=== PATIENT | female | born 1950 | race Caucasian/White ===

== ENCOUNTER 2020-09-05 09:19 | Outpatient (REF) | payer MEDICARE, SELFPAY ==
[2020-09-05 11:21] LABS: MANUAL DIFF FLAG NO
[2020-09-05 11:47] LABS: Basophils Percent Auto 0.8 % (0-2); Eosinophils Absolute Auto 0.3 X10*3/uL (0.0-0.4); Eosinophils Percent Auto 5.7 % (0-4); Hematocrit 39.5 % (37-47); Imm Gran Abs Auto 0.01 X10*3/uL (0.00-0.03); Imm Gran Pct Auto 0.2 % (0.0-0.4); Lymphocytes Absolute Auto 1.6 X10*3/uL (1.2-4.9); Lymphocytes Percent Auto 30.7 % (20-40); Mean Corpuscular HGB Conc 32.9 g/dl (31.0-35.0); Mean Corpuscular Hemoglobin 32.5 pg (27.0-33.0); Mean Corpuscular Volume 98.8 fL (80-98); Mean Platelet Volume 10.5 fL (9.4-12.3); Monocytes Absolute Auto 0.5 X10*3/uL (0.1-1.2); Monocytes Percent Auto 10.6 % (2-11); Neutrophils Absolute Auto 2.7 X10*3/uL (2.0-8.3); Platelet Count 268 X10*3/uL (160-400); Red Cell Distribution Width 12.4 % (11.0-16.0); White Blood Count 5.1 X10*3/uL (4.8-10.8)
[2020-09-05 11:55] LABS: Anion Gap 14 (12-20); Blood Urea Nitrogen 10 mg/dL (9-16); Calcium 9.2 mg/dL (8.4-10.2); Carbon Dioxide 27 mmol/L (22-29); Chloride 98 mmol/L (96-108); Cholesterol 195 mg/dL; Estimated Glomerular Filt Rate > 60; Glucose Fasting 106 mg/dL (60-99); HDL Cholesterol 61 mg/dL; LDL Cholesterol Calculated 115 mg/dl; Potassium 4.3 mmol/l (3.3-5.1); Sodium 135 mmol/L (135-145); Triglycerides 95 mg/dL
[2020-09-05 12:26] LABS: Reflex LDLD? No
== END 2020-09-05 09:20 | disposition home or self-care (01) ==
LOC: HO.HMGCLDS 09:19
PROVIDERS: PCP Internal Medicine; Visit Provider Nurse Practitioner Family
DX: F32.9 Major depressive disorder, single episode, unspecified (principal)
CPT/HCPCS: 36415; 80048; 80061; 85025

== ENCOUNTER 2020-11-03 13:37 | Outpatient (REF) | payer MEDICARE, SELFPAY ==
--- NOTE | ~2020-11-03 | MM_ITS ---
EXAMINATION: MM SCREENING DIGITAL BREAST TOMOSYNTHESIS, BILATERAL CLINICAL INFORMATION: Screening. Asymptomatic. The lifetime risk of breast cancer based on the Tyrer-Cuzick Model is 6%. COMPARISON: Mammography: 10/31/2019, 05/02/2019, 10/27/2018, 04/25/2018, 10/24/2017, 10/19/2017 TECHNIQUE: Digital breast tomosynthesis is performed in both the craniocaudal and mediolateral oblique views along with computer-aided detection (CAD). Synthesized 2D images are generated from the tomosynthesis. FINDINGS: The breasts are heterogeneously dense, which may obscure small masses (ACR BI-RADS breast composition Category c). Breast tissue composition borders on extremely dense in the upper outer quadrants. There is fine fibronodular parenchymal pattern similar to prior exams. Parenchymal pattern is similar to prior studies. There is no developing density or interval mass or architectural abnormality. Scattered bilateral round and coarse calcifications are again noted. No significant changes from prior studies. MM/MM tomosynthesis screening BI IMPRESSION: No mammographic evidence of malignancy. ASSESSMENT: BI-RADS 2: Benign RECOMMENDATION: Routine annual mammography screening. This patient's information was entered into a reminder system with a target due date for their next mammogram.
== END 2020-11-03 13:38 | disposition home or self-care (01) ==
LOC: HO.MAMMO 13:37
PROVIDERS: Visit Provider Internal Medicine
DX: Z12.31 Encounter for screening mammogram for malignant neoplasm of breast (principal)
CPT/HCPCS: 77063; 77067

== ENCOUNTER 2021-09-17 10:37 | Outpatient (REF) | payer MEDICARE, SELFPAY ==
[2021-09-17 14:08] LABS: Hematocrit 37.5 % (37.0-47.0); Hemoglobin 12.3 g/dl (12.0-16.0); Mean Corpuscular HGB Conc 32.8 g/dl (31.0-35.0); Mean Corpuscular Hemoglobin 32.5 pg (27.0-33.0); Mean Corpuscular Volume 99.2 fL (80.0-98.0); Mean Platelet Volume 10.7 fL (9.4-12.3); Platelet Count 196 X10*3/uL (160-400); Red Blood Count 3.78 X10*6/uL (4.20-5.50); Red Cell Distribution Width 12.5 % (11.0-16.0); White Blood Count 4.9 X10*3/uL (4.8-10.8)
[2021-09-17 14:11] LABS: Appearance Urine CLEAR; Color Urine YELLOW; Glucose Urine UA NEG (NEG); Leukocyte Esterase Urine NEG (NEG); Nitrite Urine NEG (NEG); PH 6.5 (5.0-8.0); Specific Gravity - Urine >= 1.030 (1.005-1.025); Urine Blood NEG (NEG); Urine Ketones NEG (NEG); Urine Protein NEG (NEG-TRACE)
[2021-09-17 14:21] LABS: Alanine Aminotransferase 15 U/L (0-31); Albumin Level 4.2 g/dL (3.5-5.0); Alkaline Phosphatase 67 U/L (39-117); Anion Gap 11 (12-20); Aspartate Amino Transferase 21 U/L (5-31); Bilirubin Direct 0.3 mg/dL (0.0-0.5); Bilirubin Total 0.8 mg/dL (0.0-1.0); Blood Urea Nitrogen 14 mg/dL (9-16); Calcium 9.5 mg/dL (8.4-10.2); Carbon Dioxide 31 mmol/L (22-29); Chloride 103 mmol/L (96-108); Cholesterol 184 mg/dL; Estimated Glomerular Filt Rate > 60; Glucose Random 93 mg/dL (60-115); HDL Cholesterol 56 mg/dL; LDL Cholesterol Calculated 112 mg/dl; Potassium 3.5 mmol/L (3.3-5.1); Sodium 141 mmol/L (135-145); Triglycerides 81 mg/dL
[2021-09-17 14:43] LABS: Thyroid Stimulating Hormone 1.04 uIU/mL (0.32-4.0)
== END 2021-09-17 10:38 | disposition home or self-care (01) ==
LOC: HO.HMGCLDS 10:37
PROVIDERS: Visit Provider Internal Medicine
DX: F41.1 Generalized anxiety disorder (principal)
CPT/HCPCS: 36415; 80048; 80061; 80076; 81003; 84443; 85027

== ENCOUNTER 2021-09-21 13:03 | Emergency (ER) | payer MEDICARE, SELFPAY ==
--- NOTE | ~2021-09-21 | XR_ITS ---
EXAMINATION: XR HUMERUS, RIGHT CLINICAL INFORMATION: Pain after a fall COMPARISON: None TECHNIQUE: AP and lateral views of the right humerus. FINDINGS: The bones and soft tissues are normal. No fracture. Imaged portions of the shoulder and elbow are unremarkable. XR/XR humerus RT IMPRESSION: Normal right humerus.
--- NOTE | ~2021-09-21 | CT_ITS ---
EXAM: Noncontrast CT scan of the head and cervical spine. INDICATION: Fall on ice with head and neck injury. COMPARISON: CT sinus 06/09/2010 TECHNIQUE: Axial slices were obtained from skull base to vertex and displayed. This was followed by helical, multislice, multidetector axial images from the occiput to the upper thorax. Coronal and sagittal reformats of the cervical spine in addition to coronal reformats of the head were obtained at the technologist workstation. DLP: 1005 mGy-cm FINDINGS: HEAD: There is no evidence of acute intracranial hemorrhage or territorial infarction. No abnormal mass effect or midline shift is appreciated. Ellington-white differentiation is well preserved. No extra-axial fluid collections. The ventricular system and cortical sulci are prominent, consistent with age-appropriate volume loss. There are areas of low density in the periventricular and subcortical white matter, most consistent with sequelae of microvascular ischemic change. Hypodensity within the left avila radiata likely represents an old lacunar infarct. Hyperostosis frontalis. No acute fracture. Mild polypoid mucosal disease of the maxillary sinuses. Other visualized paranasal sinuses and mastoid air cells are well aerated. SPINE: There is straightening of the normal cervical lordosis. Also noted is mild retrolisthesis of C3 on C4. C1/C2 articulation is unremarkable. Vertebral body heights are maintained. Mildly decreased C3/C4 and C6/C7 disc space height. Small osteophytes are noted throughout the cervical spine. Mildly prominent posterior disc osteophyte complexes are present at C3/C4, C4/C5 and C6/C7. Mild to moderate facet hypertrophy diffusely. Visualized lung apices are well aerated. CT/CT cervical spine wo con IMPRESSION: 1. No acute intracranial pathology. 2. No fractures or dislocations of the cervical spine. This CT examination was performed using dose optimization techniques as appropriate, variously including the following: *Automated exposure control *Adjustment of mA and/or kV according to patient size (this includes techniques or standardized protocols for targeted exams where dose is matched to indication/reason for exam; i.e. extremities or head) *Use of iterative reconstruction technique
[2021-09-21 13:08] VITALS: BP 143/66; PULSE 61; RESP 16; TEMP 36.6; O2SAT 97; BMI 28.4
--- NOTE | 2021-09-21 13:44 | ED_ITS ---
HPI - Fall General Chief Complaint: Fall Stated Complaint: fall - head Lac Time Seen by Provider: 09/21/21 13:44 Source: patient Mode of arrival: ambulatory Limitations: no limitations History of Present Illness HPI Narrative: Patient is a 71 year old female presenting to the emergency department today with a right eyebrow laceration and right shoulder pain after a fall. Patient states that she slipped on the ice and hit the right side of her head and right shoulder on the ground. Patient denies any loss of consciousness with the incident. Patient states she is not on any anti-coagulation medications. Patient denies any dizziness, lightheadedness, abdominal pain, nausea, vomiting, fever, chills, blurry vision, double vision, loss of vision, chest pain, difficulty breathing, shortness of breath, back pain, night sweats, pain with urination, increased urinary frequency, increased urinary urgency, blood in his urine or stool, syncope or a near syncopal episode, bowel incontinence, bladder inc ontinence, bowel retention, bladder retention, or any other complaints at this time. MD complaint: fall Onset (ago): minute(s) Fall from: standing Fall witnessed: no Place fall occurred: home Loss of consciousness: none Prolonged down time: no Symptoms prior to fall: none Context: tripped/slipped Location of injury: face Severity: mild Related Data Previous Rx's Medication Instructions Recorded hydrochlorothiazide 25 mg tablet 25 mg PO QAM #90 cap 03/23/21 metoprolol tartrate 50 mg tablet 50 mg PO BID #180 tab 06/19/21 rosuvastatin 10 mg tablet 10 mg PO BEDTIME #90 tab 07/22/21 sertraline 100 mg tablet 150 mg PO DAILY #135 tab 07/22/21 omeprazole 20 mg capsule,delayed 20 mg PO DAILY #90 cap 08/28/21 release Allergies Allergy/AdvReac Type Severity Reaction Status Date / Time lisinopril [LISINOPRIL] Allergy Severe TONGUE Verified 03/23/21 15:14 NUMBNESS, ITCHY, Numb tongue, cough, oral numbness codeine [Codeine] Allergy Unknown SWELLING, Verified 03/23/21 15:14 unknown flurazepam [From [place]] Allergy Unknown SWELLING Verified 03/23/21 15:14 tetracycline [Tetracycline] Allergy Unknown SWELLING, Verified 03/23/21 15:14 facial edema, facial swelling, neck swelling CAT GUT SUTURES' Allergy Unknown UNKNOWN Uncoded 03/23/21 15:14 Review of Systems Constitutional: Constitutional: Reports no additional constitutional complaints, Denies chills, Denies fever(s) and Denies night sweats Eyes: Eyes: Reports no additional eye complaints, Denies blurry vision, Denies change in vision, Denies diplopia, Denies eye discharge, Denies loss of vision and Denies eye pain ENT: Denies dizziness Cardiovascular: Cardiovascular: Reports no additional cardiovascular complaints, Denies chest pain, Denies lightheadedness, Denies Loss of Consciousness and Denies dyspnea Respiratory: Respiratory: Reports no additional respiratory complaints and Denies dyspnea Gastrointestinal: Gastrointestinal: Reports no additional gastrointestinal complaints, Denies abdominal pain, Denies melena, Denies hematochezia, Denies change in bowel habits and Denies change in stool character Genitourinary: Genitourinary: Denies hematuria, Denies urinary frequency, Denies dysuria, Denies urinary incontinence, Denies urinary hesitancy and Denies urinary urgency Musculoskeletal: Musculoskeletal: Reports no additional musculoskeletal complaints, Denies numbness and Denies tingling Comments: right shoulder pain Integumentary/Breasts: Comments: right eyebrow laceration Neurologic: Denies dizziness, Denies loss of vision, Denies numbness and Denies tingling Psychiatric: Psychiatric: Reports no additional psychiatric complaints Endocrine: Endocrine: Reports no additional endocrine complaints Hematologic/Lymphatic: Hematologic/Lymphatic: Reports no additional hematologic/lymphatic complaints Allergic/Immunologic: Allergic/Immunologic: Reports no additional allergic/immunologic complaints [facility] Past Medical History Attestation statement: The following information was validated with the patient. Source: old records reviewed Medical History Generalized anxiety disorder Surgical History History of appendectomy History of removal of ovarian cyst History of right knee surgery Family History Family History Father No problems noted. Mother No problems noted. Brother No problems noted. Brother No problems noted. Other Mental health disorder Substance use disorder Social History Social History Housing: House Alcohol intake: current Alcohol intake frequency: 0-2 drinks per day Alcohol type: wine Patient Tobacco Use Status: Never used Tobacco Advance Directives: No Advance Directives Information Provided: No service: No Current occupational status: retired Physical Exam Vital Signs: Vital Signs: Last Vital Signs Temp 98 F 09/21/21 13:08 Pulse 61 09/21/21 13:08 Resp 16 09/21/21 13:08 BP 143/66 H 09/21/21 13:08 Pulse Ox 97 09/21/21 13:08 BMI result Body Mass Index 28.4 Const: General: cooperative, no acute distress, alert and awake Nutritional Appearance: well nourished Orientation/consciousness: patient oriented x3 Limitations: no limitations HENMT: Head: Yes normal to inspection and Yes atraumatic Ears: hearing grossly normal bilaterally and external ears normal General nose exam: Normal external nose present, no nasal discharge noted and no epistaxis Face and sinus: Yes normal facial exam, No abrasion and No laceration Mouth: Normal oral and palatal mucosa present, no drooling and no muffled voice Eyes: General: appearance normal, both eyes and all related structures Periorbital: periorbital findings normal Eyelids: Yes eyelids normal Conjunctivae: conjunctivae normal Pupils: Equal, round and reactive pupils present EOM: EOMs intact bilaterally Neck: Neck: Yes normal visual inspection, Yes full ROM and Yes no lymphadenopathy Chest: Chest palpation & inspection: normal inspection of the chest Resp: Effort & Inspection: normal respiratory effort and able to speak in complete sentences Auscultation: clear to auscultation bilaterally Cardio: Rate: regular rate Rhythm: regular rhythm GI: Inspection: Yes normal to inspection Skin: Other: 1cm laceration to the right eyebrow, no active bleeding Neuro: General: patient oriented x3 and moves all extremities Cranial n erves: Yes Equal, round and reactive pupils present Cognition (Neuro): normal cognition Motor exam (neuro): 5/5 motor strength present throughout Sensory Exam: Normal double simultaneous stimulation for sensation Coordination: [id number] test normal Extrem: General: Yes normal to inspection, Yes full ROM and Yes capillary refill normal Psych: Appearance: grossly normal Mental Status: mental status grossly normal Affect: normal affect Attitude: cooperative Thought process: Normal thought process present Thought content: Normal thought content present Insight: Good insight present (Psych) Procedures Laceration Laceration 1: Site: face (eyebrow) Side (If applicable): right Size (cm): 1 Description: linear Depth: simple, single layer Local Anesthetic: other anesthetic (LMX) Pre-repair: irrigated extensively Skin layer closed with: other (prolene) Size (cm): 6-0 Number of sutures: 2 Technique: simple, interrupted MDM - Fall MDM Narrative Medical decision making narrative: Patient is a 71 year old female presenting to the emergency department today with a right eyebrow laceration and right shoulder pain. Patient's physical exam showed a laceration to her right eyebrow, approximately 1cm long with no active bleeding. Patient's right humerus x-ray, head CT and CT of the C-Spine showed no acute process. I explained my physical exam findings as well as all test results to the patient. I answered all questions asked by the patient. Patient was brought up to date on her tetanus shot. Patient's laceration was repaired, per procedure note, without incident. I stressed the importance of the patient taking her medication as prescribed. I stressed the importance of the patient following up with her primary care provider. I stressed the importance of the patient returning to the emergency department immediately if her symptoms were to worsen or if she were to develop any dizziness, shortness of breath, difficulty breathing, chest pain, blurry vision, loss of vision, nausea, vomiting, abdominal pain, fever, chills, back pain, or any other complaints. Patient verbalized agreement and understanding with this treatment plan and discharge. Differential Diagnosis Differential diagnosis: Likely fracture (laceration, abrasion) Imaging Data Head and C-Spine CT: Attestation: I personally reviewed and interpreted this imaging study as follows: Radiologist's impression: EXAM: Noncontrast CT scan of the head and cervical spine. INDICATION: Fall on ice with head and neck injury. COMPARISON: CT sinus 06/09/2010 TECHNIQUE: Axial slices were obtained from skull base to vertex and displayed. This was followed by helical, multislice, multidetector axial images from the occiput to the upper thorax. Coronal and sagittal reformats of the cervical spine in addition to coronal reformats of the head were obtained at the technologist workstation. DLP: 1005 mGy-cm FINDINGS: HEAD: There is no evidence of acute intracranial hemorrhage or territorial infarction.? No abnormal mass effect or midline shift is appreciated. Ellington-white differentiation is well preserved.? No extra-axial fluid collections. The ventricular system and cortical sulci are prominent, consistent with age-appropriate volume loss.? There are areas of low density in the periventricular and subcortical white matter, most consistent with sequelae of microvascular ischemic change. Hypodensity within the left avila radiata likely represents an old lacunar infarct. Hyperostosis frontalis. No acute fracture. Mild polypoid mucosal disease of the maxillary sinuses. Other visualized paranasal sinuses and mastoid air cells are well aerated. SPINE: There is straightening of the normal cervical lordosis. Also noted is mild retrolisthesis of C3 on C4. C1/C2 articulation is unremarkable. Vertebral body heights are maintained. Mildly decreased C3/C4 and C6/C7 disc space height. Small osteophytes are noted throughout the cervical spine. Mildly prominent posterior disc osteophyte complexes are present at C3/C4, C4/C5 and C6/C7. Mild to moderate facet hypertrophy diffusely. Visualized lung apices are well aerated. CT/CT head/brain wo con IMPRESSION: 1. No acute intracranial pathology. 2. No fractures or dislocations of the cervical spine. Dictated By: ADDIE GUY MD Signed By: Electronically signed by ADDIE GUY MD 09/21/2021 Right humerus x-ray: Attestation: I personally reviewed and interpreted this imaging study as follows: Radiologist's impression: EXAMINATION: XR HUMERUS, RIGHT CLINICAL INFORMATION: Pain after a fall? COMPARISON: None? TECHNIQUE: AP and lateral views of the right humerus. FINDINGS: The bones and soft tissues are normal. No fracture. Imaged portions of the shoulder and elbow are unremarkable.? XR/XR humerus RT IMPRESSION: Normal right humerus. Dictated By: MELISSA KIM MD Signed By: Electronically signed by MELISSA KIM MD 09/21/2021 Discharge Plan Discharge Clinical Impression: Laceration of eyebrow, Fall Patient Disposition: Home, Self-Care Instructions: Care For Your Stitches (DC), Laceration (DC), Fall Prevention (ED), Facial Laceration (ED), Stitches Removal (ED) Additional Instructions: Follow up with your primary care provider. Return to the emergency department immediately if your symptoms worsen or if you develop any dizziness, shortness of breath, difficulty breathing, chest pain, blurry vision, loss of vision, nausea, vomiting, abdominal pain, fever, chills, back pain, or any other complaints. Prescriptions: No Action metoprolol tartrate 50 mg tablet 50 mg PO BID Qty: 180 0RF sertraline 100 mg tablet 150 mg PO DAILY Qty: 135 1RF rosuvastatin 10 mg tablet 10 mg PO BEDTIME Qty: 90 1RF omeprazole 20 mg capsule,delayed release(DR/EC) 20 mg PO DAILY Qty: 90 1RF hydrochlorothiazide 25 mg tablet 25 mg PO QAM Qty: 90 1RF Referrals: Juan Lopes MD [Primary Care Provider] - 2 days Interventions: ED Discharge Assessment Last Done: 09/21/21 16:56 Print Language: Albanian
[2021-09-21] MEDS: Lidocaine 4 % Cream KIT 1 APPL TOPICAL (14:24)
[2021-09-21] MEDS: Diphth,Pertus(ACell),Tet Adult 0.5 ML SYRINGE IM (16:51)
== END 2021-09-21 16:58 | disposition home or self-care (01) ==
PROVIDERS: Emergency Provider Emergency Medicine; PCP Internal Medicine
DX: S01.111A Laceration without foreign body of right eyelid and periocular area, initial encounter (principal); W00.0XXA Fall on same level due to ice and snow, initial encounter; M25.511 Pain in right shoulder; Y93.01 Activity, walking, marching and hiking; Y92.014 Private driveway to single-family (private) house as the place of occurrence of the external cause; Y99.9 Unspecified external cause status
CPT/HCPCS: 12011; 70450; 72125; 73060; 90471; 90715; 99283; 99284

== ENCOUNTER 2021-09-29 14:35 | Outpatient (REF) | payer MEDICARE, SELFPAY ==
--- NOTE | ~2021-09-29 | XR_ITS ---
EXAMINATION: XR SHOULDER, RIGHT CLINICAL INFORMATION: Right shoulder pain. COMPARISON: 09/20/2011 TECHNIQUE: AP external rotation, Grashey, scapular Y, and axillary views of the right shoulder. FINDINGS: There is no evidence of acute fracture or dislocation of the right shoulder. Minimal spurring about the inferior aspect of the glenohumeral joint identified. No calcific tendinitis. There is some degenerative narrowing and spurring of the right acromioclavicular joint with evidence of previous distal clavicle fracture. There also appears to be an old healed fracture of the right 3rd rib. XR/XR shoulder RT min 2V IMPRESSION: Mild degenerative change as described. No acute fracture, dislocation, or calcific tendinitis.
== END 2021-09-29 14:36 | disposition home or self-care (01) ==
LOC: HO.XRAY 14:35
PROVIDERS: PCP Internal Medicine; Visit Provider Nurse Practitioner Family
DX: M25.511 Pain in right shoulder (principal)
CPT/HCPCS: 73030

== ENCOUNTER 2021-11-05 13:30 | Outpatient (REF) | payer MEDICARE, SELFPAY ==
--- NOTE | ~2021-11-05 | MM_ITS ---
EXAMINATION: MM SCREENING DIGITAL BREAST TOMOSYNTHESIS, BILATERAL CLINICAL INFORMATION: Screening. Asymptomatic. The lifetime risk of breast cancer based on the Tyrer-Cuzick Model is 5%. COMPARISON: Mammography: November 03, 2020 and studies dating back to November 22, 2011 TECHNIQUE: Digital breast tomosynthesis is performed in both the craniocaudal and mediolateral oblique views along with computer-aided detection (CAD). Synthesized 2D images are generated from the tomosynthesis. FINDINGS: The breasts are heterogeneously dense, which may obscure small masses (ACR BI-RADS breast composition Category c). There are no significant masses, abnormal calcifications, or other abnormalities. MM/MM tomosynthesis screening BI IMPRESSION: There are no significant changes from prior study. ASSESSMENT: BI-RADS 1: Negative RECOMMENDATION: Routine annual mammography screening. This patient's information was entered into a reminder system with a target due date for their next mammogram.
== END 2021-11-05 13:31 | disposition home or self-care (01) ==
LOC: HO.MAMMO 13:30
PROVIDERS: Visit Provider Internal Medicine
DX: Z12.31 Encounter for screening mammogram for malignant neoplasm of breast (principal)
CPT/HCPCS: 77063; 77067

== ENCOUNTER 2021-12-28 13:00 | Outpatient (RCR) | payer MEDICARE, SELFPAY ==
[2021-10-12 13:50] VITALS: BP 135/69; PULSE 59
--- NOTE | 2021-10-12 15:10 | MHC.PT.EP ---
[facility] [place] Office [place] Office [place] Office [address] [place] [address] [address] [phone] F: [phone] F: [phone] F: [phone] F: [phone] Physical Therapy Plan of Care Date of Evaluation: Date of Surgery: Diagnosis: Rt SHOULDER PAIN Assessment: 71 YO FEMALE REF TO PT W Rt SH PAIN S/P FALL OUTDOORS ON 09/21/21- SHE IS RIGHT HAND DOMINANT AND RESIDES ALONE- OBJECTIVE FINDINGS: LIMITED Rt SH AROM ESPEC FLEX AND ER, (+) Rt ANT DELT,CERV AND POST RC SOFT TISSUE TENSION; (+) Rt SH NEER AND MERLOS KAREN , AND SIGNIF PAIN IN Rt ANT SH AND Rt UT- CURRENTLY NO OBVIOUS BICEP DEFECT. OBJECTIVELY, t IS VERY LIMITED W REG ADLs-> SLEEPING, LIFTING, CARRYING, ADLs > SH HEIGHT, AND DRIVING. Pt WOULD BENEFIT FROM PT TO ADDRESS THE ABOVE FINDINGS, DEV A HEP, SELF-SX MGMT STRATEGIES, AND ESPEC PAIN MGMT FOR TRAUMATIC Rt SH IMPINGEMENT, MONITORING SXS. 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 Manual therapy to restore motion and function. Therapeutic exercise to improve strength and flexibility. Neuromuscular re-education for posture and balance. Therapeutic activities to return to functional activities of daily living. Electronically signed by: Ellen Camejo,PT Please sign and return to therapist. Thank you for your referral.
--- NOTE | 2021-12-28 15:07 | MHC.PT.DC ---
[facility] [place] Office [place] Office [place] Office [address] [phone] F: [phone] F: [phone] F: [phone] F: [phone] Physical Therapy Discharge Report Diagnosis: Rt SHOULDER PAIN Date of Surgery: Date of Evaluation: 10/12/21 Date of Discharge: 12/28/21 Treatments to Date: 16 Cancellations to Date: 1 No Shows to Date: Discharge Status: Achieved Goals Improved Function Independent with HEP Discharge Summary: Pt presenting with decreased pain today and able to tolerate all exercises with no discomfort. Her overall functional activity dhara has improved- sleep, ADLs- Pt HAS IMPROVED STRENGTH OVERALL IN Rt SH, BUT, SHE REMAINS SYMPTOMATIC W ER AND LESSER EXTENT W ABD. SHE HAS MET HER PT GOALS TO MAX POTENTIAL AT THIS TIME-> SHE IS INDEP W HEP. SPADI SCORE AT EVAL 97/130 AND AT D/C 32/130. Electronically signed by: Ellen Camejo,PT Please sign and return to therapist. Thank you for your referral.
== END 2022-07-13 10:49 | disposition home or self-care (01) ==
LOC: HO.PT 13:00
PROVIDERS: Visit Provider Nurse Practitioner Family
DX: M25.511 Pain in right shoulder (principal)
CPT/HCPCS: 97033; 97110; 97140; 97161; 97530; 97535

== ENCOUNTER 2022-11-10 13:09 | Outpatient (REF) | payer MEDICARE, SELFPAY ==
--- NOTE | ~2022-11-10 | MM_ITS ---
EXAMINATION: MM SCREENING DIGITAL BREAST TOMOSYNTHESIS, BILATERAL CLINICAL INFORMATION: Screening. Asymptomatic. The lifetime risk of breast cancer based on the Tyrer-Cuzick Model is 5%. COMPARISON: Mammography: 11/05/2021, 11/03/2020, 10/31/2019 TECHNIQUE: Digital breast tomosynthesis is performed in both the craniocaudal and mediolateral oblique views along with computer-aided detection (CAD). Synthesized 2D images are generated from the tomosynthesis. FINDINGS: The breasts are heterogeneously dense, which may obscure small masses (ACR BI-RADS breast composition Category c). Breast tissue composition borders on extremely dense in the upper outer quadrants. Parenchymal pattern is similar to prior studies. No developing density or interval architectural abnormality. There is a stable oval nodule with coarse calcification posterior 12:00 left breast consistent with degenerating fibroadenoma. There are no significant masses, abnormal calcifications, or other abnormalities. Again, there are numerous bilateral coarse and fine calcifications scattered in both breasts. The axilla and skin contours are unremarkable. No significant changes. MM/MM tomosynthesis screening BI IMPRESSION: No mammographic evidence of malignancy. ASSESSMENT: BI-RADS 2: Benign RECOMMENDATION: Routine annual mammography screening. This patient's information was entered into a reminder system with a target due date for their next mammogram.
== END 2022-11-10 13:10 | disposition home or self-care (01) ==
LOC: HO.MAMMO 13:09
PROVIDERS: PCP Internal Medicine; Visit Provider Internal Medicine
DX: Z12.31 Encounter for screening mammogram for malignant neoplasm of breast (principal)
CPT/HCPCS: 77063; 77067

== ENCOUNTER 2023-04-08 09:05 | Outpatient (REF) | payer MEDICARE, SELFPAY ==
[2023-04-08 11:30] LABS: Hematocrit 36.9 % (37.0-47.0); Hemoglobin 12.3 g/dl (12.0-16.0); Mean Corpuscular HGB Conc 33.3 g/dl (31.0-35.0); Mean Corpuscular Hemoglobin 32.4 pg (27.0-33.0); Mean Corpuscular Volume 97.1 fL (80.0-98.0); Mean Platelet Volume 10.6 fL (9.4-12.3); Platelet Count 165 X10*3/uL (160-400); Red Cell Distribution Width 12.5 % (11.0-16.0); White Blood Count 4.8 X10*3/uL (4.8-10.8)
[2023-04-08 11:38] LABS: Appearance Urine Clear; Color Urine Yellow; Glucose Urine UA Negative (Negative); Leukocyte Esterase Urine Negative (Negative); Nitrite Urine Negative (Negative); PH 6.5 (5.0-9.0); Specific Gravity - Urine 1.015 (1.005-1.025); Urine Blood Negative (Negative); Urine Ketones Negative (Negative); Urine Protein Negative (Neg-Trace)
[2023-04-08 12:40] LABS: Alanine Aminotransferase 11 U/L (0-31); Albumin Level 4.2 g/dL (3.5-5.0); Alkaline Phosphatase 61 U/L (39-117); Anion Gap 13 (12-20); Aspartate Amino Transferase 21 U/L (5-31); Bilirubin Direct 0.2 mg/dL (0.0-0.5); Blood Urea Nitrogen 15 mg/dL (9-16); Calcium 9.6 mg/dL (8.4-10.2); Carbon Dioxide 27 mmol/L (22-29); Chloride 101 mmol/L (96-108); Cholesterol 173 mg/dL (<200); Estimated Glomerular Filt Rate > 60; Glucose Random 78 mg/dL (60-115); HDL Cholesterol 52 mg/dL (>40); LDL Cholesterol Calculated 106 mg/dL (<100); Potassium 3.9 mmol/L (3.3-5.1); Sodium 137 mmol/L (135-145); Total Protein 7.5 g/dL (6.5-8.0); Triglycerides 78 mg/dL (<150)
[2023-04-08 12:58] LABS: Thyroid Stimulating Hormone 1.41 uIU/mL (0.32-4.0)
== END 2023-04-08 09:06 | disposition home or self-care (01) ==
LOC: HO.HMGCLDS 09:05
PROVIDERS: PCP Internal Medicine; Visit Provider Internal Medicine
DX: I10 Essential (primary) hypertension (principal); K21.9 Gastro-esophageal reflux disease without esophagitis
CPT/HCPCS: 36415; 80048; 80061; 80076; 81003; 84443; 85027

== ENCOUNTER 2023-04-15 13:46 | Outpatient (AMB) | payer MEDICARE, SELFPAY ==
[2023-04-15 13:56] VITALS: BP 124/78; PULSE 68; O2SAT 99; BMI 30.4
--- NOTE | 2023-04-15 13:57 | AM.OFFVISMDC ---
Intake Vital Signs 04/15/23 13:56 Height 5 ft 5 in Weight 183 lb BMI 30.4 BP 124/78 Blood Pressure Location Lt brachial Position Sitting Pulse 68 Pulse Source Pulse Oximeter Temp Source Skin Pulse Oximetry (%) 99 Oxygen Delivery Method Room Air Intake Visit Reasons: SAWV Intake Note: Patient is here for an Annual Wellness Visit. Cigar Maker Required: No Allergies lisinopril [LISINOPRIL] Allergy (Severe, Verified 04/15/23 14:14) TONGUE NUMBNESS, ITCHY, Numb tongue, cough, oral numbness codeine [Codeine] Allergy (Unknown, Verified 04/15/23 14:14) SWELLING, unknown flurazepam [From Dalmane] Allergy (Unknown, Verified 04/15/23 14:14) SWELLING tetracycline [Tetracycline] Allergy (Unknown, Verified 04/15/23 14:14) SWELLING, facial edema, facial swelling, neck swelling CAT GUT SUTURES' Allergy (Unknown, Uncoded 04/15/23 14:14) UNKNOWN Medication List - Last Reconciled 04/15/23 by CHARLEY Gonzalez hydrochlorothiazide 25 mg PO QAM metoprolol tartrate 50 mg PO BID omeprazole 20 mg PO DAILY rosuvastatin 10 mg PO BEDTIME sertraline 150 mg (1.5 x 100 mg) PO DAILY HPI SAWV HPI Details Patient is a 72-year-old female who presents today for subsequent wellness visit. Patient of Dr. Lopes. Today we discussed patient's need for bone density screening. Mammogram 10/2022 which was normal. Up-to-date with immunizations. [place] of care was reviewed with the patient and she was provided with a screening schedule. Patient has a healthcare proxy in place and she was provided with a MOLST form. [facility] Medical History (Updated 04/15/23 @ 14:18 by CHARLEY Gonzalez) Generalized anxiety disorder GERD (gastroesophageal reflux disease) Hyperlipidemia Hypertension Surgical History (Updated 04/15/23 @ 15:47 by CHARLEY Gonzalez) History of appendectomy History of colonoscopy History of removal of ovarian cyst History of right knee surgery Family History Father No problems noted. Mother No problems noted. Brother No problems noted. Brother No problems noted. Other Mental health disorder Substance use disorder Social History Housing: House Alcohol intake: current Alcohol intake frequency: 0-2 drinks per day Alcohol type: wine Patient Tobacco Use Status: Never used Tobacco e-Cigarette/Vaping Use: Never Used service: No Current occupational status: retired Cognitive needs: No Hearing needs: No Vision needs: No Questionnaire Medicare Wellness Checkup [age] What gender do you identify with?: female During the past 4 weeks, how much have you been bothered by emotional problems such as feeling anxious, depressed, irritable, sad or downhearted, and blue?: not at all During the past 4 weeks, has your physical & emotional health limited your social activities with family, friends, neighbors, or groups?: not at all During the past 4 weeks, how much bodily pain have you generally had?: moderate pain During the past 4 weeks, was someone available to help you if you needed & wanted help?: yes, as much as I wanted During the past 4 weeks, what was the hardest physical activity you could do for at least 2 minutes?: heavy Can you get to places out of walking distance without help? (For eg., can you travel alone on buses, taxis or drive your car?): Yes Can you go shopping for groceries or clothes without someone's help?: Yes Can you prepare your own meals?: Yes Can you do your housework without help?: Yes Because of any health problems, do you need the help of another person with your personal care needs such as eating, bathing, dressing or getting around the house?: No Can you handle your own money without help?: Yes During the past 4 weeks, how would you rate your health in general?: very good During the past 4 weeks how have things been going for you?: pretty well Are you having difficulties driving your car?: no Do you always fasten your seat belt when you are in a car?: yes, usually During past 4 weeks, have you been bothered by the following: never: Falling or dizzy when standing up, Sexual problems?, Trouble eating well?, Teeth or denture problems?, Problems using the telephone? and Tiredness or fatigue? Have you fallen 2 or more times in the past year?: No Are you afraid of falling?: Yes Are you a smoker?: no During the past 4 weeks, how many drinks of wine, beer, or other alcoholic beverages did you have?: 2-5 drinks per week Do you exercise for about 20 minutes 3 or more times a week?: yes, all the time Have you been given information to help with the following?: no: Hazards in your house that might hurt you? and no: Keeping track of your medications? How often do you have trouble taking medicines the way you have been told to take them?: I always take medicine as prescribed How confident are you that you can control & manage most of your health problems?: very confident What is your race?: White Mini Mental State Exam (MMSE) Orientation What is the (year) (season) (date) (day) (month)?: year, season, date, day and month Score Score: 5 Activity of Daily Living Bathing - sponge bath, tub bath or shower: receives no assistance (gets in/out by self, if usual bathing means Dressing - getting clothes from closets & drawers, including inner/outer garments & fasteners.: gets clothes & gets completely dressed without help Toileting - going to the 'toilet room' for urine/bowel elimination & cleaning self/arranging clothes: goes to toilet room, cleans self, arranges clothes without help Transfer: moves in & out of bed and chair without help (may use support object) Continence: controls urination/bowel movements completely by self Feeding: feeds self without help Total Score: 0 Information obtained from: patient Using telephone: independent Traveling: independent Shopping: independent Preparing meals: independent Housework: independent Taking medicine: independent Managing money: independent PHQ-9 Over the last 2 weeks, how often have you been bothered by any of the following problems? 1. Little interest or pleasure in doing things: not at all 2. Feeling down, depressed, or hopeless: not at all 3. Trouble falling or staying asleep, or sleeping too much: not at all 4. Feeling tired or having little energy: not at all 5. Poor appetite or overeating: not at all 6. Feeling bad about yourself - or that you are a failure or have let yourself or your family down: not at all 7. Trouble concentrating on things, such as reading the newspaper or watching television: not at all 8. Moving or speaking so slowly that other people could have noticed. Or the opposite - being so fidgety or restless that you have been moving around a lot more than usual: not at all 9. Thoughts that you would be better off or of hurting yourself in some way: not at all Total score: 0 Depression Screening Interpretation: Negative 43419 - PHQ-9 Billing: Yes Source: Developed by Drs. Lenin Barger, Iram Kessler, Jluis Mills and colleagues, with an educational luis from [employer]. Physical Exam Vital Signs: Last Vital Signs Pulse 68 04/15/23 13:56 BP 124/78 04/15/23 13:56 Pulse Ox 99 04/15/23 13:56 Oxygen Delivery Method Room Air 04/15/23 13:56 BMI result Body Mass Index 30.4 Const General: cooperative and no acute distress Orientation/consciousness: patient oriented x3 HEENT Other: Whisper test: pass Neuro Other: Balance: Normal Get up and walk: unable to Romberg: negative Tandem gait: unable to General: patient oriented x3 Assessment & Plan Assessment & Plan (1) Post-menopausal: Code(s): Z78.0 - Asymptomatic menopausal state (2) Hyperlipidemia: Code(s): E78.5 - Hyperlipidemia, unspecified Plan: Continue rosuvastatin Low-cholesterol diet (3) Hypertension: Code(s): I10 - Essential (primary) hypertension Plan: Continue current treatment Low-sodium diet (4) GERD (gastroesophageal reflux disease): Code(s): K21.9 - Gastro-esophageal reflux disease without esophagitis Plan: Continue omeprazole Avoid GERD trigger foods (5) Annual physical exam: Code(s): Z00.00 - Encounter for general adult medical examination without abnormal findings (6) Generalized anxiety disorder: Code(s): F41.1 - Generalized anxiety disorder Plan: Continue sertraline Orders: Orders XR DEXA axial skeleton Today Z78.0 - Asymptomatic menopausal state Quality Reporting (2019) Depression/Bipolar (159/160/161/177) PHQ-9: Total score: 0 Coding Level of Care Code Medicare Subsequent (G0439) Diagnoses Post-menopausal Z78.0 Hyperlipidemia E78.5 Hypertension I10 GERD (gastroesophageal reflux disease) K21.9 Annual physical exam Z00.00 Generalized anxiety disorder F41.1 CPT Codes Advance Care Planning - Time spent: 1-15 minutes, not on file ([id number]) Advance Care Planning Advance Care Planning discussion: Exists, not on file Date of discussion: 04/15/23 Who was present: pt and healthcare architect Forms completed: None Time spent: 1-15 minutes, not on file Actual minutes spent: 2 Did not discuss due to Cultural/Spiritual beliefs: No
== END 2023-04-15 14:26 | disposition home or self-care (01) ==
PROVIDERS: PCP Internal Medicine; Visit Provider Nurse Practitioner Family
DX: Z00.00 Encounter for general adult medical examination without abnormal findings (principal); I10 Essential (primary) hypertension; K21.9 Gastro-esophageal reflux disease without esophagitis; Z78.0 Asymptomatic menopausal state; E78.5 Hyperlipidemia, unspecified; F41.1 Generalized anxiety disorder
CPT/HCPCS: 1124F; G0439

== ENCOUNTER 2023-04-28 12:51 | Outpatient (REF) | payer MEDICARE, SELFPAY ==
--- NOTE | ~2023-04-28 | MM_ITS ---
EXAMINATION: BONE DENSITOMETRY CLINICAL INDICATION: Asymptomatic menopausal state. COMPARISON: This is the patient's baseline examination. TECHNIQUE: Using a [employer] DXA System (software version: 13.1) manufactured by [employer], dual-energy x-ray absorptiometry was performed of the lumbar spine and left hip. The images are of good technical quality. Summary results are attached. FINDINGS: LEFT FEMUR, NECK: BMD 0.749 g/cm2, Z-score -0.7, T-score -2.1, osteopenia. LEFT FEMUR, TOTAL: BMD 0.804 g/cm2, Z-score -0.5, T-score -1.6, osteopenia. AP SPINE L1-L4: BMD 1.315 g/cm2, Z-score 2.2, T-score 1.1, normal. IDENTIFIED RISK FACTORS: Menopause, history of fracture (adult), low calcium intake, thiazide. HISTORY OF FRACTURE: Other. MEDICATIONS: None listed. MM/XR DEXA axial skeleton IMPRESSION: 1. DIAGNOSIS: Osteopenia based on the lowest T-score value of -2.1 in the femoral neck applying World Health Organization criteria. 2. 10-YEAR FRACTURE RISK PREDICTION, FRAX: Major osteoporotic fracture (clinical spine, forearm, hip or shoulder) 19.3%. Hip fracture 4.1%. 3. Treatment Recommendations: NOF guidelines recommend consideration for treatment in postmenopausal women and men age 50 and older presenting with the following: -A hip or vertebral (clinical or morphometric) fracture. -T-score less than or equal to -2.5 at the femoral neck or spine after appropriate evaluation to exclude secondary causes. -Low bone mass at the hip or spine and a 10-year fracture probability by FRAX of greater than or equal to 3% for hip fracture or greater than or equal to 20% for major osteoporotic fracture based on the [place] adapted WHO algorithm. 4. Other Recommendations: All treatment decisions require clinical judgment and consideration of individual patient factors, including patient preferences, comorbidities, previous drug use, risk factors not captured in the FRAX model (e.g. frailty, falls, vitamin D deficiency, increased bone turnover, interval significant decline in bone density) and possible under or overestimation of fracture risk by FRAX. Additional medical evaluation for secondary cause of low bone mineral density may be appropriate. FUTURE SCAN RECOMMENDATION: People with diagnosed cases of osteoporosis or at high risk for fracture should have regular bone mineral density tests. For patients eligible for Medicare, routine testing is allowed once every 2 years. The testing frequency can be increased to one year for patients who have rapidly progressing disease, those who are receiving or discontinuing medical therapy to restore bone mass, or have additional risk factors.
== END 2023-04-28 12:52 | disposition home or self-care (01) ==
LOC: HO.MAMMO 12:51
PROVIDERS: Visit Provider Nurse Practitioner Family
DX: Z13.820 Encounter for screening for osteoporosis (principal); Z78.0 Asymptomatic menopausal state
CPT/HCPCS: 77080

== ENCOUNTER → 2023-04-28 13:00 | Outpatient (BNV) | payer MEDICARE, SELFPAY | PROVIDERS: Visit Provider Radiology Diagnostic Radiology | DX: M85.89 Other specified disorders of bone density and structure, multiple sites (principal); Z78.0 Asymptomatic menopausal state | CPT/HCPCS: 77080 ==

== ENCOUNTER 2023-06-15 12:07 | Emergency (ER) | payer MEDICARE, SELFPAY ==
--- NOTE | ~2023-06-15 | XR_ITS ---
EXAMINATION: XR WRIST, RIGHT CLINICAL INFORMATION: Pain status post recent injury COMPARISON: None available. TECHNIQUE: Four views of the right wrist. FINDINGS: Decreased bone normal density which decreases sensitivity for fracture evaluation. Radiopaque densities along the ulnar styloid reflect mildly displaced fracture possibly superimposed on chondrocalcinosis of the TFCC. Mild multi joint arthritic changes. Joint space alignment are maintained. Soft tissue swelling overlying the ulnar aspect of the wrist. XR/XR wrist RT min 3V IMPRESSION: 1. Decreased bone normal density which decreases sensitivity for fracture evaluation. 2. Radiopaque densities along the ulnar styloid reflect mildly displaced fracture possibly superimposed on chondrocalcinosis of the TFCC. 3. Soft tissue swelling overlying the ulnar aspect of the wrist. 4. Mild multi joint arthritic changes.
[2023-06-15 12:20] VITALS: BP 169/78; PULSE 65; RESP 16; TEMP 36.3; O2SAT 98; BMI 31.3
--- NOTE | 2023-06-15 12:20 | ED_ITS ---
HPI - Extremity Injury (Upper) General Chief Complaint: Extremity Injury, Upper Stated Complaint: wrist pain Time Seen by Provider: 06/15/23 14:05 Source: patient Mode of arrival: ambulatory Limitations: no limitations History of Present Illness HPI narrative: 72-year-old female presents with right wrist pain since Tuesday, patient reports she was polishing furniture and got a sudden wrist pain with tingling upper arm, pain is worse with movement better at rest. She says her entire life she has been doing things with her hands and has been having repetitive motions. Denies blunt trauma. Reports yesterday took ibuprofen with little to no relief. Think she has arthritis. Reports intermittent numbness. Denies chest pain, shortness of breath, fevers, chills. Related Data Previous Rx's Medication Instructions Recorded metoprolol tartrate 50 mg tablet 50 mg PO BID #180 tabs 03/12/23 hydrochlorothiazide 25 mg tablet 25 mg PO QAM #90 tabs 04/04/23 omeprazole 20 mg capsule,delayed 20 mg PO DAILY #90 caps 04/04/23 release sertraline 100 mg tablet 150 mg (1.5 x 100 mg) PO DAILY 04/25/23 #135 tabs rosuvastatin 10 mg tablet 10 mg PO BEDTIME #90 tabs 05/26/23 acetaminophen 500 mg capsule 1,000 mg (2 x 500 mg) PO Q6H PRN 06/15/23 pain #30 caps prednisone 50 mg tablet 50 mg PO DAILY 5 days #5 tabs 06/15/23 Allergies Allergy/AdvReac Type Severity Reaction Status Date / Time lisinopril [LISINOPRIL] Allergy Severe TONGUE Verified 04/15/23 14:14 NUMBNESS, ITCHY, Numb tongue, cough, oral numbness codeine [Codeine] Allergy Unknown SWELLING, Verified 04/15/23 14:14 unknown flurazepam [From Dalmane] Allergy Unknown SWELLING Verified 04/15/23 14:14 tetracycline [Tetracycline] Allergy Unknown SWELLING, Verified 04/15/23 14:14 facial edema, facial swelling, neck swelling CAT GUT SUTURES' Allergy Unknown UNKNOWN Uncoded 04/15/23 14:14 Review of Systems Review of Systems: Constitutional : No Weight loss, No Fever, No Chills, No Fatigue, No Malaise ENT/Mouth : No sore throat, No Rhinorrhea Eyes: No Eye Pain, No Swelling, No Redness Cardiovascular : No Chest Pain, No SOB, No Dyspnea on Exertion, No Orthopnea, No Edema, No Palpitations Respiratory : No Cough, No Sputum, No Wheezing Gastrointestinal : No Nausea, No Vomiting, No Diarrhea, No Constipation, No abdominal Pain, No Hematochezia, No Melena Genitourinary : No Dysuria, No Urinary Frequency, No Hematuria, Musculoskeletal : + joint pain, No Myalgias, + Joint Swelling Skin : No Skin Lesions, No rash Neuro : No Weakness, No Numbness, No Dizziness, No Headache Psych : No Anxiety/Panic, No Depression All other systems reviewed and are negative Yes all other systems are reviewed and are negative [facility] Past Medical History Attestation statement: The following information was validated with the patient. Source: old records reviewed and nursing notes reviewed Medical History Hypertension GERD (gastroesophageal reflux disease) Hyperlipidemia Generalized anxiety disorder Surgical History History of colonoscopy History of right knee surgery History of removal of ovarian cyst History of appendectomy Family History Family History Father No problems noted. Mother No problems noted. Brother No problems noted. Brother No problems noted. Other Mental health disorder Substance use disorder Social History Social History Housing: House Alcohol intake: current Alcohol intake frequency: 0-2 drinks per day Alcohol type: wine Patient Tobacco Use Status: Never used Tobacco e-Cigarette/Vaping Use: Never Used Advance Directives: Yes Advance Directives Information Provided: No Advance Directives on File: No service: No Current occupational status: retired Cognitive needs: No Hearing needs: No Vision needs: No Physical Exam Vital Signs: Vital Signs: Last Vital Signs Temp 97.3 F 06/15/23 12:20 Pulse 65 06/15/23 12:20 Resp 16 06/15/23 12:20 BP 169/78 H 06/15/23 12:20 Pulse Ox 98 06/15/23 12:20 O2 Del Method Room Air 06/15/23 12:20 BMI result Body Mass Index 31.3 vss Appearance: Alert.? Oriented X3.? No acute distress.? Head: Normocephalic, atraumatic, no step-offs or deformities Eyes: Pupils equal, round and reactive to light.? ENT: Pharynx normal.? Neck: Normal inspection.? Neck supple.? CVS: Normal heart rate and rhythm.? Pulses normal.? Respiratory: No respiratory distress.? Breath sounds normal.? Abdomen: Soft and nontender.? Skin: Skin warm and dry.? Normal skin color.? Normal skin turgor.? Extremities: No lower extremity edema.? No calf ttp. 5/5 strength to bilateral upper and lower extremities. Full rom to b/l wrist, painful ROM to R. wrist. No overlying skin changes . 2+ radial pulses equal and b/l. No wristdrop. Normal sensation distally. + TTP to right wrist throughout w/ slight overlying swelling. Normal left wrist. Neuro: Oriented X 3.? No motor deficit.? No sensory deficit. CN 2-12 intact Course Course Course Narrative: RME - 72 yo right hand dominant female presenting with 9/10 right wrist pain after she injured it while polishing furniture 2 days ago. Pain radiates proximally. Difficulty w/ ADLs today Plan: x-ray wrist Reevaluation(s) Reevaluation #1: X-ray of right wrist with decreased bone normal density which decreases sensitivity for fracture however there is a radiopaque density along the ulnar styloid region question fracture versus chondrocalcinosis of TFCC, soft tissue swelling and TTP overlying will put in spling. Will have her follow-up with the orthopedic team. Educated patient on diagnosis and treatment plan, answered all question, patient verbalizes understanding. At this time patient will be discharged home, advised to return with new or worsening symptoms. Educated on worrisome signs and symptoms and when to return. At this time I feel comfortable discharge home. Time: 15:43 Medications Administered Discontinued Medications Generic Name Dose Route Start Last Admin Trade Name Freq PRN Reason Stop Dose Admin Acetaminophen 975 mg 06/15/23 14:44 06/15/23 15:24 Acetaminophen 325 Mg Tablet PO 06/15/23 14:45 975 mg ONCE ONE Administration Prednisone 50 mg 06/15/23 14:44 06/15/23 15:23 Prednisone 10 Mg Tablet PO 06/15/23 14:45 50 mg ONCE ONE Administration Medical Decision Making Medical Decision Making [facility] Narrative: 1443 72 yo f presents w/ right wrist pain since tuesday No lower extremity edema.? No calf ttp. 5/5 strength to bilateral upper and lower extremities. Full rom to b/l wrist, painful ROM to R. wrist. No overlying skin changes . 2+ radial pulses equal and b/l. No wristdrop. Normal sensation distally. + TTP to right wrist throughout w/ slight overlying swelling. Normal left wrist. Likely inflammatory arthritis versus gout versus pseudogout versus tendinitis. Unlikely threat to Dixon, neurovascular compromise, septic joint, fracture dislocation. Unlikely arterial or venous occlusion Plan imaging. Differential Diagnosis Differential Diagnoses: The differential diagnosis associated with the presentation includes Likely inflammatory arthritis versus gout versus pseudogout versus tendinitis. Unlikely threat to Dixon, neurovascular compromise, septic joint, fracture dislocation. Unlikely arterial or venous occlusion Admission/Observation Consideration of admission/observation: Escalation of care including admission/observation considered Unlikely Independent Interpretation I performed an independent interpretation of an: Plain X-Ray Radiology Impression Discussion of test interpretation with radiology: I have reviewed the radiologist's reading. Prescription Management I considered prescription management with: Pain Medication and Other (Prednisone) Discharge Plan Discharge Clinical Impression: Wrist pain, right Patient Disposition: Home, Self-Care Instructions: Wrist Injury (ED), Arm Pain (ED) Additional Instructions: Take your medications as prescribed. If you were prescribed antibiotics today, it is important that you take your medication to their entirety, do not skip any doses, do not finish them early. Follow-up with your primary care provider this week. Follow-up with the orthopedic team is needed Return to the emergency department with new or worsening symptoms. Such as fevers, chills, chest pain, shortness of breath, nausea, vomiting, dizziness, headache, vision changes, lethargy In case of emergency call 911 XR/XR wrist RT min 3V IMPRESSION: 1. Decreased bone normal density which decreases sensitivity for fracture evaluation. 2. Radiopaque densities along the ulnar styloid reflect mildly displaced fracture possibly superimposed on chondrocalcinosis of the TFCC. 3. Soft tissue swelling overlying the ulnar aspect of the wrist. 4. Mild multi joint arthritic changes. Prescriptions: New prednisone 50 mg tablet 50 mg PO DAILY 5 Days Qty: 5 0RF acetaminophen 500 mg capsule 1,000 mg PO Q6H PRN (Reason: pain) Qty: 30 0RF No Action metoprolol tartrate 50 mg tablet 50 mg PO BID Qty: 180 1RF hydrochlorothiazide 25 mg tablet 25 mg PO QAM Qty: 90 1RF omeprazole 20 mg capsule,delayed release(DR/EC) 20 mg PO DAILY Qty: 90 1RF sertraline 100 mg tablet 150 mg PO DAILY Qty: 135 1RF rosuvastatin 10 mg tablet 10 mg PO BEDTIME Qty: 90 1RF [place]: [facility] [place]Provider Group] - 2 days Juan Lopes MD [Primary Care Provider] - 2 days Stand Alone Forms: Work/School Release
[2023-06-15] MEDS: predniSONE 10 MG TABLET 50 MG PO (15:23)
[2023-06-15] MEDS: Acetaminophen 325 MG TABLET 975 MG PO (15:24)
== END 2023-06-15 15:59 | disposition home or self-care (01) ==
PROVIDERS: Emergency Provider Emergency Medicine Emergency Medical Services; PCP Internal Medicine
DX: M25.531 Pain in right wrist (principal); I10 Essential (primary) hypertension; E78.5 Hyperlipidemia, unspecified; Z79.899 Other long term (current) drug therapy
CPT/HCPCS: 73110; 99283

== ENCOUNTER 2023-06-27 14:58 | Outpatient (AMB) | payer MEDICARE, SELFPAY ==
--- NOTE | 2023-06-27 15:42 | MHC.OFFVIS ---
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 Patient reports she was polishing furniture on 06/13/23 and got a sudden wrist pain with tingling upper arm, pain is worse with movement better at rest. She says her entire life she has been doing things with her hands and has been having repetitive motions. Seen in ED where xrays were taken and was given a wrist brace. States 2 days later she woke up with increase pain and numbness in her ring and pinky. Also has pain and burning sensation by her volar aspect of wrist. Hx of thumb injury 1 year ago and right elbow surgery in 1968. Allergies lisinopril [LISINOPRIL] Allergy (Severe, Verified 06/27/23 15:49) TONGUE NUMBNESS, ITCHY, Numb tongue, cough, oral numbness codeine [Codeine] Allergy (Unknown, Verified 06/27/23 15:49) SWELLING, unknown flurazepam [From Dalmane] Allergy (Unknown, Verified 06/27/23 15:49) SWELLING tetracycline [Tetracycline] Allergy (Unknown, Verified 06/27/23 15:49) SWELLING, facial edema, facial swelling, neck swelling CAT GUT SUTURES' Allergy (Unknown, Uncoded 06/27/23 15:49) UNKNOWN [facility] Medical History Hypertension GERD (gastroesophageal reflux disease) Hyperlipidemia Generalized anxiety disorder Surgical History History of colonoscopy History of right knee surgery History of removal of ovarian cyst History of appendectomy Family History Father No problems noted. Mother No problems noted. Brother No problems noted. Brother No problems noted. Other Mental health disorder Substance use disorder Social History Housing: House Alcohol intake: current Alcohol intake frequency: 0-2 drinks per day Alcohol type: wine Patient Tobacco Use Status: Never used Tobacco e-Cigarette/Vaping Use: Never Used service: No Current occupational status: retired Cognitive needs: No Hearing needs: No Vision needs: No Physical Exam Const General: cooperative, healthy appearing and no acute distress Orientation/consciousness: oriented to person and oriented to place HEENT Head: Yes normocephalic and Yes atraumatic Eyes EOM: EOMs intact bilaterally Resp Effort & Inspection: normal respiratory effort and able to speak in complete sentences Cardio Jugular venous distension: no JVD Skin General skin exam: turgor normal Rashes: no rashes Neuro General: oriented to person and oriented to place Extrem Other: Evaluation of right Upper Extremity: Neuro: Median, ulnar, radial nerves motor and sensory intact. Specifically no numbness or tingling in ulnar nerve distribution. Good finger cross. Vascular: Cap refill brisk. ROM: Can bring fingers closed to a fist and back out to extension. Can oppose thumb to fingertips Skin: No lacerations or abrasions. General: No eccymosis. No erythema or evidence of infection. She can make a fist and extend all of her digits. She did have some discomfort in the distal ulnar aspect of her forearm with resisted right ring finger flexion, and more specifically right ring finger D IP flexion against resistance. However, she also had some discomfort in this distal ulnar aspect of her right forearm with resisted wrist flexion. She was most tender to palpation along the more proximal aspect of the FCU tendon, and then also somewhat more proximally over the myotendinous areas of perhaps the small and ring finger flexors. No tenderness over the ulnocarpal or radiocarpal joints. No tenderness over the DRUJ and the DRUJ was stable with smooth prono-supination. Active wrist flexion and then extension also cause some discomfort over the Jose tendinous areas of the distal ulnar forearm. Radiographs: Three views of the right wrist from 06/15/2023 were reviewed by me today in clinic. I see no fractures or dislocations. She does have significant chondrocalcinosis seen especially in the ulnocarpal joint. There is also some cyst formation in multiple bones including the capitate the hamate, the triquetrum and the lunate. She has also got some basal joint arthritis. 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 Right wrist tenderness in the area of the myotendinous junctions of the FCU and then also possibly of the small and ring finger flexors. Related to Polishing legs of a chair about 2 weeks ago. No fall. No numbness or tingling. I educated her about this condition She has been also wearing a Velcro wrist splint 247. I have asked her to get out of it more than she has in it. She can wear with heavier activities like going to the grocery store, but I think we do not want her to develop any wrist stiffness. We talked about activity modification. I am hopeful that this will improve with time. If she is still having significant symptoms in 3 or 4 week she knows to contact us to be seen again. She might benefit from a course of OT. Having a steroid injection could be difficult in this area, and we also after remember the ulnar nerve and artery that her in the area. She is happy with this plan. 2. Right wrist chondrocalcinosis This does not appear to be symptomatic today. Coding Level of Care Code New Pt Level 3 (87359) Diagnoses Right wrist tendinitis M77.8
[2023-06-27 15:51] VITALS: BMI 30.3
== END 2023-06-27 16:29 | disposition home or self-care (01) ==
PROVIDERS: PCP Internal Medicine; Visit Provider Orthopaedic Surgery
DX: M77.8 Other enthesopathies, not elsewhere classified (principal)
CPT/HCPCS: 99203

== ENCOUNTER 2023-06-27 14:58 | Outpatient (REF) | payer MEDICARE, SELFPAY ==
[2023-06-27 17:48] LABS: Vitamin D 25-OH Total 40.7 ng/mL (>30)
== END 2023-06-27 14:59 | disposition home or self-care (01) ==
LOC: HO.LAB 14:58
PROVIDERS: Absent Provider Nurse Practitioner Family; PCP Internal Medicine; Visit Provider Orthopaedic Surgery
DX: M25.531 Pain in right wrist (principal); M77.8 Other enthesopathies, not elsewhere classified; M85.80 Other specified disorders of bone density and structure, unspecified site
CPT/HCPCS: 36415; 82306; 99202

== ENCOUNTER 2023-07-14 08:39 | Outpatient (AMB) | payer MEDICARE, SELFPAY ==
--- NOTE | 2023-07-14 09:27 | MHC.OFFWIV ---
Intake Vital Signs 07/14/23 09:31 Height 5 ft 5 in Weight 181 lb 4 oz BMI 30.2 BP 120/78 Blood Pressure Location Rt brachial Position Sitting Pulse 68 Pulse Source Pulse Oximeter Temp 96.4 F L Temp Source Temporal Artery Scan Pulse Oximetry (%) 98 Oxygen Delivery Method Room Air Intake Visit Reasons: EST/sore throat(lobby masked) Intake Note: Pt is here c/o sore throat. Pt states she was exposed to RSV and strep throat. Patient Tobacco Use Status: Never used Tobacco Allergies lisinopril [LISINOPRIL] Allergy (Severe, Verified 07/14/23 09:30) TONGUE NUMBNESS, ITCHY, Numb tongue, cough, oral numbness codeine [Codeine] Allergy (Unknown, Verified 07/14/23:30) SWELLING, unknown flurazepam [From Dalmane] Allergy (Unknown, Verified 07/14/23:30) SWELLING tetracycline [Tetracycline] Allergy (Unknown, Verified 07/14/23:30) SWELLING, facial edema, facial swelling, neck swelling CAT GUT SUTURES' Allergy (Unknown, Uncoded 07/14/23 09:30) UNKNOWN HPI HPI Comments History of Present Illness Details This is a 72-year-old female with a past medical history of hypertension, hyperlipidemia and gastroesophageal reflux disease presenting for evaluation of a sore throat and ear fullness and dull headache that she has had since Tuesday. Patient denies having any fevers, chills, ear pain, cough or shortness of breath. Patient states that her granddaughters were diagnosed with both strep throat and RSV on the day after Thanksgi. Patient has not taken any medication for treatment of her discomfort. [facility] Medical History Hypertension GERD (gastroesophageal reflux disease) Hyperlipidemia Generalized anxiety disorder Surgical History History of colonoscopy History of right knee surgery History of removal of ovarian cyst History of appendectomy Family History Father No problems noted. Mother No problems noted. Brother No problems noted. Brother No problems noted. Other Mental health disorder Substance use disorder Social History (Reviewed 06/27/23 @ 15:51 by SAM Whitt Housing: House Alcohol intake: current Alcohol intake frequency: 0-2 drinks per day Alcohol type: wine Patient Tobacco Use Status: Never used Tobacco e-Cigarette/Vaping Use: Never Used service: No Current occupational status: retired Cognitive needs: No Hearing needs: No Vision needs: No Review of Systems Const Denies chills, Reports fatigue and Denies fever(s) Eyes Reports as per HPI ENT Details: Ear fullness bilaterally without pain Denies sinus pressure and Reports sore throat Card Reports as per HPI Resp Reports as per HPI and Denies cough Musc Details: no myalgias Endo Reports no additional complaints and Reports fatigue Physical Exam Vital Signs: Last Vital Signs Temp 96.4 F L 07/14/23 09:31 Pulse 68 07/14/23 09:31 BP 120/78 07/14/23 09:31 Pulse Ox 98 07/14/23 09:31 Oxygen Delivery Method Room Air 07/14/23 09:31 BMI result Body Mass Index 30.2 Oral temp 98.8. Const General: cooperative, healthy appearing and no acute distress Nutritional Appearance: average body habitus Orientation/consciousness: patient oriented x3 Limitations: no limitations HEENT Head: Yes normal to inspection Ears: hearing grossly normal bilaterally, external ears normal, TM's normal bilaterally and EAC's normal General nose exam: Normal external nose present Face and sinus: Yes normal facial exam Mouth: Normal oral and palatal mucosa present and moist mucous membranes Throat: Yes posterior oropharynx normal ( there is no edema, exudates or erythema of the posterior oropharynx.) Eyes General: appearance normal, both eyes and all related structures Conjunctivae: conjunctivae normal Sclerae: sclerae normal Corneas: corneas normal Pupils: Equal, round and reactive pupils present EOM: EOMs intact bilaterally Neck Lymphatic: no lymphadenopathy noted Resp Effort & Inspection: normal respiratory effort, able to speak in complete sentences, no cough and no respiratory distress Auscultation: clear to auscultation bilaterally Cardio Rate: regular rate Rhythm: regular rhythm Skin General skin exam: no rashes or lesions noted Neuro General: patient oriented x3 Cranial nerves: Yes Equal, round and reactive pupils present Psych Appearance: grossly normal Mental Status: mental status grossly normal Insight: Good insight present (Psych) Judgement: Good judgement present (Psych) Results AMB Rapid Strep AMB Rapid Strep Negative Last Edit by Leticia Cary, DIRECTOR OF MARKET INTELLIGENCE on 07/14/23 09:43 Results Reviewed Results Reviewed: Laboratory Last Values Strep Scn Rapid Clinic Negative 07/14/23 09:42 Negative strep reviewed with patient. Assessment & Plan Assessment & Plan (1) Pharyngitis: Code(s): J02.9 - Acute pharyngitis, unspecified Plan: Patient to take Naprosyn twice daily for sore throat and increase clear fluids daily, hot tea with honey. Patient will follow-up with her primary care provider within 7-10 days if her symptoms are not improving. Orders: Orders AMB Rapid Strep Screen Today Z13.9 - Encounter for screening, unspecified Coding Level of Care Code Est Pt Level 3 (56789) Diagnoses Pharyngitis J02.9 Time Spent (min) 20
[2023-07-14 09:31] VITALS: BP 120/78; PULSE 68; TEMP 35.8; O2SAT 98; BMI 30.2
== END 2023-07-14 10:28 | disposition home or self-care (01) ==
PROVIDERS: PCP Internal Medicine; Visit Provider Physician Assistant
DX: Z13.9 Encounter for screening, unspecified (principal); J02.9 Acute pharyngitis, unspecified
CPT/HCPCS: 87880; 99213

== ENCOUNTER 2023-11-03 14:02 | Outpatient (AMB) | payer MEDICARE, SELFPAY ==
--- NOTE | 2023-11-03 14:16 | A.OFFPC_ITS ---
Vital Signs 11/03/23 14:18 Height 5 ft 5 in Weight 186 lb 2 oz BMI 31.0 BP 110/70 Blood Pressure Location Lt brachial Position Sitting Pulse 61 Pulse Source Pulse Oximeter Pulse Oximetry (%) 99 Oxygen Delivery Method Room Air Intake Visit Reasons: 6 month f/u Intake Note: Patient is here to follow up on HTN, GERD, Hyperlipidemia. 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 Children'S Choir Director: Not Required per policy Accompanied by: Self / Same As Patient Allergies lisinopril [LISINOPRIL] Allergy (Severe, Verified 11/03/23 14:17) TONGUE NUMBNESS, ITCHY, Numb tongue, cough, oral numbness codeine [Codeine] Allergy (Unknown, Verified 11/03/23 14:17) SWELLING, unknown flurazepam [From Dalmane] Allergy (Unknown, Verified 11/03/23 14:17) SWELLING tetracycline [Tetracycline] Allergy (Unknown, Verified 11/03/23 14:17) SWELLING, facial edema, facial swelling, neck swelling CAT GUT SUTURES' Allergy (Unknown, Uncoded 09/01/23 14:05) UNKNOWN Tobacco use date assessed: 11/03/23 Fall risk assessment: 1 Fall in past year (10/23/23) Last assessed Fall Risk: 11/03/23 Dental Screening Dental Screen Date: 11/03/23 Did you have a dental visit in the last 12 months?: Yes Did you have a dental problem in the last 6 months where you did not have access to dental care?: No Was dental information given to patient?: Patient has dentist HPI 6 month f/u HPI Details 73-year-old female presents to the offic e to discuss her chronic medical conditions. Patient feels depressed due to her 's chronic illness. He has Alzheimer's which is progressively getting worse. She has difficulty taking care of him and the illness. Continues to take the sertraline but feels tired during the day. Her right knee is often swelling up and makes it difficult for her to walk at times. Not following any particular diet as she is has lost interest in cooking. Continues to have intermittent right shoulder pain. [facility] Medical History Hypertension GERD (gastroesophageal reflux disease) Hyperlipidemia Generalized anxiety disorder Surgical History History of colonoscopy History of right knee surgery History of removal of ovarian cyst History of appendectomy Family History Father No problems noted. Mother No problems noted. Brother No problems noted. Brother No problems noted. Other Mental health disorder Substance use disorder Social History Housing: House Alcohol intake: current Alcohol intake frequency: 0-2 drinks per day Alcohol type: wine Patient Tobacco Use Status: Never used Tobacco e-Cigarette/Vaping Use: Never Used Second Hand Smoke Exposure: No service: No Current occupational status: retired Cognitive needs: No Hearing needs: No Vision needs: No Questionnaire PHQ-9 Over the last 2 weeks, how often have you been bothered by any of the following problems? 1. Little interest or pleasure in doing things: not at all 2. Feeling down, depressed, or hopeless: not at all 3. Trouble falling or staying asleep, or sleeping too much: not at all 4. Feeling tired or having little energy: not at all 5. Poor appetite or overeating: not at all 6. Feeling bad about yourself - or that you are a failure or have let yourself or your family down: not at all 7. Trouble concentrating on things, such as reading the newspaper or watching television: not at all 8. Moving or speaking so slowly that other people could have noticed. Or the opposite - being so fidgety or restless that you have been moving around a lot more than usual: not at all 9. Thoughts that you would be better off or of hurting yourself in some way: not at all Total score: 0 Depression Screening Interpretation: Negative Depression Screening Done: Yes Source: Developed by Drs. Lenin Barger, Iram Kessler, Jluis Mills and colleagues, with an educational luis from [employer]. Thrive Questionnaire Date Thrive assessed: 11/03/23 I am a: Patient What is your living situation today?: I have a steady place to live Within the past 12 months, did the food you bought not last and you didn't have the money to get more?: Never true Within the past 12 months, did you worry whether your food would run out before you got money to buy more?: Never true Do you have trouble paying for medicines?: No Do you have trouble getting transportation to medical appointments?: No Do you have trouble paying your heating and electricity bill?: No Do you have trouble taking care of your child, family member or friend?: No Do you have trouble with day-to-day activities such as bathing, preparing meals, shopping, managing finances, etc.?: No Are you currently unemployed and looking for a job?: No Are you interested in more education?: No Currently or been in a relationship where the following occur: no concerns reported THRIVE Score: 0 AUDIT C Alcohol Use Questionnaire (AUDIT-C) 1. How often do you have a drink containing alcohol?: 4 or more times a week 2. How many drinks containing alcohol do you have on a typical day when you are drinking?: 1 or 2 Total Score: 4 MEÑO-7 AMB Questionnaire MEÑO-7 Date MEÑO - 7 assessed: 11/03/23 Feeling nervous, anxious, or on edge: 0 = Not at all Not being able to stop or control worryin = Not at all Worrying too much about different things: 0 = Not at all Trouble relaxin = Not at all Being so restless that it is hard to sit still: 0 = Not at all Becoming easily annoyed or irritable: 0 = Not at all Feeling afraid as if something awful might happen: 0 = Not at all Total MEÑO-7 score (0-4 normal; 5-9 mild; 10-14 moderate; 15-21 severe): 0 Source: Developed by Drs. Lenin Barger, Iram Kessler, Jluis Mills and colleagues, with an educational luis from [employer]. Physical exam (Primary Care) Vital Signs: Last Vital Signs Pulse 61 11/03/23 14:18 BP 110/70 11/03/23 14:18 Pulse Ox 99 11/03/23 14:18 Oxygen Delivery Method Room Air 11/03/23 14:18 Care Plan Goal for BP management: Blood pressure is in range. BMI result Body Mass Index 31.0 BMI Assessment/Plan discussion: High (1 lb per week weight loss suggested.) BMI High, discussed plan: lifestyle and weight reduction Tobacco/Smoking Status: Tobacco use Status Tobacco use date assessed 11/03/23 11/03/23 14:20 Patient Tobacco Use Status Never used Tobacco 11/03/23 14:20 e-Cigarette/Vaping Use Never Used 11/03/23 14:20 PHQ-9: PHQ-9 Score PHQ-9: Total score 0 11/03/23 14:20 Depression Screening Interpretation: Negative Thrive Assessment: Date of Thrive Assessment Date Thrive assessed 11/03/23 11/03/23 14:20 Currently or been in a relationship where the following occur: no concerns reported Const General: cooperative and healthy appearing Nutritional Appearance: well nourished Orientation/consciousness: patient oriented x3 Limitations: no limitations HENMT Head: Yes normal to inspection Eyes General: appearance normal, both eyes and all related structures Neck Neck: Yes normal visual inspection Chest Chest palpation & inspection: normal palpation of entire chest wall Resp Effort & Inspection: normal respiratory effort Neuro General: patient oriented x3 Extrem Other: Right knee: Swelling with joint line tenderness. Pain on flexion. Assessment and Plan Assessment & Plan (1) Generalized anxiety disorder: Code(s): F41.1 - Generalized anxiety disorder Plan: Continue sertraline. She can not take an anxiolytics on a p.r.n. basis. (2) Hypertension: Code(s): I10 - Essential (primary) hypertension Plan: Blood pressure is in range. Continue current medications (3) Hyperlipidemia: Code(s): E78.5 - Hyperlipidemia, unspecified Plan: Blood work has been ordered. Continue current medications. (4) Osteoarthritis of right knee: Code(s): M17.11 - Unilateral primary osteoarthritis, right knee Plan: Patient does not want to get any steroid injection at the moment. Conservative management with [id number] anti-inflammatories. Orders: Orders Complete Blood Count no Diff Today E78.5 - Hyperlipidemia, unspecified, F41.1 - Generalized anxiety disorder, I10 - Essential (primary) hypertension Thyroid Stimulating Hormone Today E78.5 - Hyperlipidemia, unspecified, F41.1 - Generalized anxiety disorder, I10 - Essential (primary) hypertension Basic Metabolic Panel Today E78.5 - Hyperlipidemia, unspecified, F41.1 - Generalized anxiety disorder, I10 - Essential (primary) hypertension Lipid Panel Today E78.5 - Hyperlipidemia, unspecified, F41.1 - Generalized anxiety disorder, I10 - Essential (primary) hypertension Liver Panel Today E78.5 - Hyperlipidemia, unspecified, F41.1 - Generalized anxiety disorder, I10 - Essential (primary) hypertension UA and rflx microscopic Today E78.5 - Hyperlipidemia, unspecified, F41.1 - Generalized anxiety disorder, I10 - Essential (primary) hypertension Coding Level of Care Code Est Pt Level 4 (72040) Diagnoses Generalized anxiety disorder F41.1 Hypertension I10 Hyperlipidemia E78.5 Osteoarthritis of right knee M17.11
[2023-11-03 14:18] VITALS: BP 110/70; PULSE 61; O2SAT 99; BMI 31.0
== END 2023-11-03 15:20 | disposition home or self-care (01) ==
PROVIDERS: PCP Internal Medicine; Visit Provider Internal Medicine
DX: F41.1 Generalized anxiety disorder (principal); I10 Essential (primary) hypertension; E78.5 Hyperlipidemia, unspecified; M17.11 Unilateral primary osteoarthritis, right knee
CPT/HCPCS: 99214

== ENCOUNTER 2023-11-15 12:59 | Outpatient (REF) | payer MEDICARE, SELFPAY ==
--- NOTE | ~2023-11-15 | MM_ITS ---
EXAMINATION: MM SCREENING DIGITAL BREAST TOMOSYNTHESIS, BILATERAL CLINICAL INFORMATION: Screening. Asymptomatic. COMPARISON: Mammography: This study is compared with prior exams dating back to 2019. TECHNIQUE: Digital breast tomosynthesis is performed in both the craniocaudal and mediolateral oblique views along with computer-aided detection (CAD). Synthesized 2D images are generated from the tomosynthesis. FINDINGS: The breasts are heterogeneously dense, which may obscure small masses (ACR BI-RADS breast composition Category c). There are no significant masses, abnormal calcifications, or other abnormalities. There are scattered, bilateral, coarse, benign calcifications. MM/MM tomosynthesis screening BI IMPRESSION: No mammographic evidence of malignancy. ASSESSMENT: BI-RADS BI-RADS 2 - Benign Findings RECOMMENDATION: Routine annual mammography screening. 1 year F/U This examination should not preclude the clinical evaluation of a suspicious palpable abnormality. This patient's information was entered into a reminder system with a target due date for their next mammogram.
== END 2023-11-15 13:00 | disposition home or self-care (01) ==
LOC: HO.MAMMO 12:59
PROVIDERS: PCP Internal Medicine; Visit Provider Internal Medicine
DX: Z12.31 Encounter for screening mammogram for malignant neoplasm of breast (principal)
CPT/HCPCS: 77063; 77067

== ENCOUNTER → 2023-11-15 13:00 | Outpatient (BNV) | payer MEDICARE, SELFPAY | PROVIDERS: PCP Internal Medicine; Visit Provider Radiology Diagnostic Radiology | DX: Z12.31 Encounter for screening mammogram for malignant neoplasm of breast (principal) | CPT/HCPCS: 77063; 77067 ==

== ENCOUNTER 2024-04-11 10:08 | Outpatient (REF) | payer MEDICARE, SELFPAY ==
[2024-04-11 13:27] LABS: Appearance Urine Clear; Color Urine Yellow; Glucose Urine UA Negative (Negative); Leukocyte Esterase Urine Negative (Negative); Nitrite Urine Negative (Negative); Urine Blood Negative (Negative); Urine Ketones Negative (Negative); Urine Protein Negative (Neg-Trace)
[2024-04-11 13:32] LABS: Mean Corpuscular HGB Conc 34.3 g/dl (31.0-35.0); Mean Corpuscular Hemoglobin 32.3 pg (27.0-33.0); Mean Corpuscular Volume 94.1 fL (80.0-98.0); Mean Platelet Volume 10.3 fL (9.4-12.3); Platelet Count 158 X10*3/uL (160-400); Red Blood Count 3.72 X10*6/uL (4.20-5.50); Red Cell Distribution Width 12.3 % (11.0-16.0); White Blood Count 4.5 X10*3/uL (4.8-10.8)
[2024-04-11 13:57] LABS: Alanine Aminotransferase 13 U/L (0-31); Albumin Level 4.2 g/dL (3.5-5.0); Alkaline Phosphatase 64 U/L (39-117); Anion Gap 11 (12-20); Aspartate Amino Transferase 23 U/L (5-31); Bilirubin Direct 0.3 mg/dL (0.0-0.5); Bilirubin Total 0.8 mg/dL (0.0-1.0); Blood Urea Nitrogen 9 mg/dL (9-16); Calcium 9.8 mg/dL (8.4-10.2); Carbon Dioxide 27 mmol/L (22-29); Chloride 101 mmol/L (96-108); Cholesterol 166 mg/dL (<200); Estimated Glomerular Filt Rate > 60; Glucose Random 98 mg/dL (60-115); HDL Cholesterol 45 mg/dL (>40); LDL Cholesterol Calculated 95 mg/dL (<100); Potassium 3.1 mmol/L (3.3-5.1); Sodium 136 mmol/L (135-145); Total Protein 7.8 g/dL (6.5-8.0); Triglycerides 134 mg/dL (<150)
[2024-04-11 14:17] LABS: Thyroid Stimulating Hormone 1.68 uIU/mL (0.32-4.0)
== END 2024-04-11 10:09 | disposition home or self-care (01) ==
LOC: HO.HMGCLDS 10:08
PROVIDERS: PCP Internal Medicine; Visit Provider Internal Medicine
DX: F41.1 Generalized anxiety disorder (principal); I10 Essential (primary) hypertension; E78.5 Hyperlipidemia, unspecified
CPT/HCPCS: 36415; 80048; 80061; 80076; 81003; 84443; 85027

== ENCOUNTER 2024-04-19 13:43 | Outpatient (AMB) | payer MEDICARE, SELFPAY ==
[2024-04-19 13:48] VITALS: BP 108/68; PULSE 70; O2SAT 98; BMI 30.4
--- NOTE | 2024-04-19 13:48 | A.OFFVIS_ITS ---
Intake Vital Signs 04/19/24 13:48 Height 5 ft 5 in Weight 183 lb BMI 30.4 BP 108/68 Blood Pressure Location Lt brachial Position Sitting Pulse 70 Pulse Source Pulse Oximeter Pulse Oximetry (%) 98 Oxygen Delivery Method Room Air Intake Visit Reasons: AWV Family Literacy Coordinator Required: No Allergies lisinopril [LISINOPRIL] Allergy (Severe, Verified 04/19/24 13:48) TONGUE NUMBNESS, ITCHY, Numb tongue, cough, oral numbness codeine [Codeine] Allergy (Unknown, Verified 04/19/24 13:48) SWELLING, unknown flurazepam [From Dalmane] Allergy (Unknown, Verified 04/19/24 13:48) SWELLING tetracycline [Tetracycline] Allergy (Unknown, Verified 04/19/24 13:48) SWELLING, facial edema, facial swelling, neck swelling CAT GUT SUTURES' Allergy (Unknown, Uncoded 04/19/24 13:48) UNKNOWN HPI AWV HPI Details 73-year-old female with past medical his tory generalized anxiety disorder, GERD, hypertension, hyperlipidemia, osteopenia last seen by Dr. Lopes coming in for annual wellness visit.? In review of the notes, patient completed mammogram 11/28/2023 BI-RADS 2 follow up in 1 year. Today she mentions she continues to have right shoulder pain which has been persistent and she believes to be related to her walking her dogs. She also mentions she has right knee pain and is most likely going to need a knee replacement. Lastly she mentions she has been having increased depression and anxiety surrounding the recent of her and family stress. [facility] Medical History Hypertension GERD (gastroesophageal reflux disease) Hyperlipidemia Generalized anxiety disorder Surgical History History of colonoscopy History of right knee surgery History of removal of ovarian cyst History of appendectomy Family History Father No problems noted. Mother No problems noted. Brother No problems noted. Brother No problems noted. Other Mental health disorder Substance use disorder Social History Housing: House Alcohol intake: current Alcohol intake frequency: 0-2 drinks per day Alcohol type: wine Patient Tobacco Use Status: Never used Tobacco e-Cigarette/Vaping Use: Never Used Second Hand Smoke Exposure: No service: No Current occupational status: retired Cognitive needs: No Hearing needs: No Vision needs: No Questionnaire Medicare Wellness Checkup [age] What gender do you identify with?: female During the past 4 weeks, how much have you been bothered by emotional problems such as feeling anxious, depressed, irritable, sad or downhearted, and blue?: quite a bit During the past 4 weeks, has your physical & emotional health limited your social activities with family, friends, neighbors, or groups?: slightly During the past 4 weeks, how much bodily pain have you generally had?: moderate pain During the past 4 weeks, was someone available to help you if you needed & wanted help?: yes, quite a bit During the past 4 weeks, what was the hardest physical activity you could do for at least 2 minutes?: moderate Can you get to places out of walking distance without help? (For eg., can you travel alone on buses, taxis or drive your car?): Yes Can you go shopping for groceries or clothes without someone's help?: Yes Can you prepare your own meals?: Yes Can you do your housework without help?: Yes Because of any health problems, do you need the help of another person with your personal care needs such as eating, bathing, dressing or getting around the house?: No Can you handle your own money without help?: Yes During the past 4 weeks, how would you rate your health in general?: good During the past 4 weeks how have things been going for you?: good & bad parts about equal Are you having difficulties driving your car?: no Do you always fasten your seat belt when you are in a car?: yes, usually During past 4 weeks, have you been bothered by the following: never: Falling or dizzy when standing up, Teeth or denture problems? and Problems using the telephone?, seldom: Tiredness or fatigue? and sometimes: Trouble eating well? Have you fallen 2 or more times in the past year?: Yes Are you afraid of falling?: Yes Are you a smoker?: no During the past 4 weeks, how many drinks of wine, beer, or other alcoholic beverages did you have?: 2-5 drinks per week Do you exercise for about 20 minutes 3 or more times a week?: yes, all the time Have you been given information to help with the following?: yes: Hazards in your house that might hurt you? and yes: Keeping track of your medications? How often do you have trouble taking medicines the way you have been told to take them?: I always take medicine as prescribed How confident are you that you can control & manage most of your health problems?: very confident What is your race?: White PHQ-9 Over the last 2 weeks, how often have you been bothered by any of the following problems? 1. Little interest or pleasure in doing things: not at all 2. Feeling down, depressed, or hopeless: several days 3. Trouble falling or staying asleep, or sleeping too much: not at all 4. Feeling tired or having little energy: not at all 5. Poor appetite or overeating: not at all 6. Feeling bad about yourself - or that you are a failure or have let yourself or your family down: several days 7. Trouble concentrating on things, such as reading the newspaper or watching television: not at all 8. Moving or speaking so slowly that other people could have noticed. Or the opposite - being so fidgety or restless that you have been moving around a lot more than usual: not at all 9. Thoughts that you would be better off or of hurting yourself in some way: not at all Total score: 2 Depression Screening Interpretation: Negative Depression Screening Done: Yes [id number] - PHQ-9 Billing: Yes Source: Developed by Drs. Lenin Barger, Iram Kessler, Jluis Mills and colleagues, with an educational luis from [employer]. Review of Systems Const Denies body aches, Denies fatigue, Denies fever(s), Denies frequent falls, Denies headache(s) and Denies weakness Eyes Reports no additional complaints and Denies change in vision ENT Details: decreased hearing Denies dysphagia, Denies dizziness, Denies facial pain, Denies headache(s), Denies nasal congestion and Denies odynophagia Card Denies chest pain, Denies syncope, Denies irregular heart rhythm, Denies leg edema, Denies lightheadedness and Denies dyspnea Resp Denies cough and Denies dyspnea GI Denies constipation, Denies dysphagia, Denies dyspepsia, Denies diarrhea, Denies nausea, Denies odynophagia and Denies vomiting Denies urinary frequency, Denies dysuria, Denies urinary hesitancy and Denies urinary urgency Musc Reports as per HPI and Denies myalgias Skin/Breast Reports system reviewed and no additional complaints, except as documented Neuro Denies dizziness, Denies syncope, Denies frequent falls, Denies headache(s) and Denies weakness Psych Reports no additional complaints Endo Denies fatigue Physical Exam Vital Signs: Last Vital Signs Pulse 70 04/19/24 13:48 BP 108/68 04/19/24 13:48 Pulse Ox 98 04/19/24 13:48 Oxygen Delivery Method Room Air 04/19/24 13:48 BMI result Body Mass Index 30.4 Const General: cooperative, healthy appearing, comfortable and no acute distress Orientation/consciousness: patient oriented x3 HEENT Head: Yes normocephalic Ears: hearing grossly normal bilaterally, external ears normal, TM's abnormal bilaterally (not visualized ), EAC's normal and Abnormal EAC present cerumen impaction bilateral General nose exam: Normal external nose present Face and sinus: Yes normal facial exam and Yes sinuses nontender Mouth: Normal oral and palatal mucosa present and tongue normal Throat: Yes posterior oropharynx normal Eyes General: appearance normal, both eyes and all related structures Conjunctivae: conjunctivae normal Pupils: Equal, round and reactive pupils present EOM: EOMs intact bilaterally and No Nystagmus present Neck Neck: Yes normal visual inspection, Yes full ROM and Yes no lymphadenopathy Chest Chest palpation & inspection: normal inspection of the chest Resp Effort & Inspection: normal respiratory effort Auscultation: clear to auscultation bilaterally, no crackles, no rales, no rhonchi, no wheezes and breath sounds present Cardio Rate: regular rate Rhythm: regular rhythm Peripheral pulses: radial pulses present and dorsalis pedis present GI Inspection: Yes normal to inspection and No Abdominal wall edema Palpation (GI): Soft to palpation, not firm and nontender Auscultation: normal bowel sounds Rectal Exam - Female: deferred General: Yes no CVA tenderness Back/Spine/Pelvis Back: no CVA tenderness Skin General skin exam: no rashes or lesions noted Neuro General: patient oriented x3 Cranial nerves: Yes Equal, round and reactive pupils present, Yes Midline tongue present, Yes Ability to bilaterally elevate shoulders present and No Nystagmus present Gait exam (Neuro): Normal gait present Extrem General: Yes normal to inspection, Yes full ROM, No no pedal edema and No edema Psych Speech and movement: Normal speech and movement present Affect: normal affect Insight: Good insight present (Psych) Judgement: Good judgement present (Psych) Assessment & Plan Assessment & Plan (1) Hyperlipidemia: Code(s): E78.5 - Hyperlipidemia, unspecified Plan: Avoid foods that are high in cholesterol such as red meat, fried foods, eggs and baked goods. Triglyceride goal of less than 150 and LDL goal of less than 100. Continue on rosuvastatin (2) Hypertension: Code(s): I10 - Essential (primary) hypertension Plan: Continue on metoprolol and hydrochlorothiazide. Avoid salt intake and encourage healthy diet and regular exercise. (3) GERD (gastroesophageal reflux disease): Code(s): K21.9 - Gastro-esophageal reflux disease without esophagitis Plan: Avoid trigger foods such as citrus, tomato products, soda, caffeine, spicy foods and other foods that may be irritating to your stomach. Avoid laying flat 3-4 hours after eating and elevate the head of the bed 30 degrees to prevent acid from moving into the esophagus. Continue on omeprazole (4) Generalized anxiety disorder: Code(s): F41.1 - Generalized anxiety disorder Plan: Continue on sertraline. Declined counselor or further services. (5) Impacted cerumen: Code(s): H61.20 - Impacted cerumen, unspecified ear Plan: Recommend ear lavage to clear bilateral ears. (6) Medicare annual wellness visit, subsequent: Code(s): Z00.00 - Encounter for general adult medical examination without abnormal findings Plan: Patient is up to date on all routine screenings and vaccinations for her age. Last colonoscopy done 2018 with 5-10 year follow up. Mammogram and bone density up to date and last blood work up to date and within normal limits. Follow up annually or sooner if new problems arise. Plan This note was constructed using voice recognition software. While every effort has been made to ensure accuracy and feed grinder, still areas may have been included sometimes these areas may affect the content or meeting of the given symptoms. Total time spent caring for the patient today was 30 minutes. This includes time spent before the visit reviewing the chart, time spent during the visit, and time spent after the visit and documentation. Quality Reporting (2019) Depression/Bipolar (159/160/161/177) PHQ-9: Total score: 2 Coding Level of Care Code Medicare Subsequent (G0439) Diagnoses Hyperlipidemia E78.5 Hypertension I10 GERD (gastroesophageal reflux disease) K21.9 Generalized anxiety disorder F41.1 Impacted cerumen H61.20 Medicare annual wellness visit, subsequent Z00.00
== END 2024-04-19 14:41 | disposition home or self-care (01) ==
PROVIDERS: PCP Internal Medicine
DX: E78.5 Hyperlipidemia, unspecified (principal); I10 Essential (primary) hypertension; K21.9 Gastro-esophageal reflux disease without esophagitis; F41.1 Generalized anxiety disorder; H61.20 Impacted cerumen, unspecified ear
CPT/HCPCS: 99214

== ENCOUNTER 2024-04-23 11:30 | Outpatient (AMB) | payer MEDICARE, SELFPAY ==
--- NOTE | 2024-04-23 11:36 | A.OFFPC_ITS ---
Vital Signs 04/23/24 11:37 Height 5 ft 5 in Weight 184 lb BMI 30.6 BP 112/66 Blood Pressure Location Lt brachial Position Sitting Pulse 74 Pulse Source Pulse Oximeter Pulse Oximetry (%) 99 Oxygen Delivery Method Room Air Intake Visit Reasons: Irrigation Allergies lisinopril [LISINOPRIL] Allergy (Severe, Verified 04/23/24 11:43) TONGUE NUMBNESS, ITCHY, Numb tongue, cough, oral numbness codeine [Codeine] Allergy (Unknown, Verified 04/23/24 11:43) SWELLING, unknown flurazepam [From Dalmane] Allergy (Unknown, Verified 04/23/24 11:43) SWELLING tetracycline [Tetracycline] Allergy (Unknown, Verified 04/23/24 11:43) SWELLING, facial edema, facial swelling, neck swelling CAT GUT SUTURES' Allergy (Unknown, Uncoded 04/23/24 11:43) UNKNOWN Tobacco use date assessed: 11/03/23 Fall risk assessment: No Falls in past year Dental Screening Dental Screen Date: 11/03/23 HPI Irrigation HPI Details 73-year-old female with past medical his tory generalized anxiety disorder, GERD, hypertension, hyperlipidemia, osteopenia coming in for ear flushing. Patient states she has fullness sensation and decreased hearing in bilateral ears as well as ringing of the right ear. [facility] Medical History Hypertension GERD (gastroesophageal reflux disease) Hyperlipidemia Generalized anxiety disorder Surgical History History of colonoscopy History of right knee surgery History of removal of ovarian cyst History of appendectomy Family History Father No problems noted. Mother No problems noted. Brother No problems noted. Brother No problems noted. Other Mental health disorder Substance use disorder Social History Housing: House Alcohol intake: current Alcohol intake frequency: 0-2 drinks per day Alcohol type: wine Patient Tobacco Use Status: Never used Tobacco e-Cigarette/Vaping Use: Never Used Second Hand Smoke Exposure: No service: No Current occupational status: retired Cognitive needs: No Hearing needs: No Vision needs: No Questionnaire Thrive Questionnaire Date Thrive assessed: 11/03/23 AUDIT C Alcohol Use Questionnaire (AUDIT-C) 2. How many drinks containing alcohol do you have on a typical day when you are drinking?: 1 or 2 3. How often do you have six or more drinks on one occasion?: Never Total Score: 0 MEÑO-7 AMB Questionnaire MEÑO-7 Date MEÑO - 7 assessed: 11/03/23 Source: Developed by Drs. Lenin Barger, Iram Kessler, Jluis Mills and colleagues, with an educational luis from [employer]. Review of Systems Const Denies chills and Denies fever(s) Eyes Reports no additional complaints ENT Denies Normal hearing present (decreased hearing bilaterally), Denies dizziness, Denies otalgia, Reports tinnitus (right sided) and Denies sinus pressure Card Denies dyspnea Resp Denies cough and Denies dyspnea GI Reports no additional complaints Reports no additional complaints Skin/Breast Reports system reviewed and no additional complaints, except as documented Neuro Denies Normal hearing present (decreased hearing bilaterally) and Denies dizziness Physical exam (Primary Care) Vital Signs: Last Vital Signs Pulse 74 04/23/24 11:37 BP 112/66 04/23/24 11:37 Pulse Ox 99 04/23/24 11:37 Oxygen Delivery Method Room Air 04/23/24 11:37 BMI result Body Mass Index 30.6 Tobacco/Smoking Status: Tobacco use Status Tobacco use date assessed 11/03/23 04/23/24 11:40 Patient Tobacco Use Status Never used Tobacco 04/23/24 11:40 e-Cigarette/Vaping Use Never Used 04/23/24 11:40 Thrive Assessment: Date of Thrive Assessment Date Thrive assessed 11/03/23 04/23/24 11:40 Const General: cooperative, healthy appearing, comfortable and no acute distress Orientation/consciousness: patient oriented x3 HENMT Head: Yes normocephalic Ears: hearing grossly normal bilaterally, external ears normal, TM's abnormal bilaterally (unable to visualize) and Abnormal EAC present cerumen impaction bilateral Eyes General: appearance normal, both eyes and all related structures Neck Neck: Yes normal visual inspection, Yes full ROM and Yes no lymphadenopathy Resp Effort & Inspection: normal respiratory effort and able to speak in complete sentences Cardio Rate: regular rate Neuro General: patient oriented x3 and gait normal Cranial nerves: No Normal hearing present (decreased hearing bilaterally) Office Procedures Cerumen Removal From which ear canal was the cerumen removed: bilateral Removal: irrigation and otoscope w/curette Notes: patient tolerated procedure well, no complications and ear canal clear [id number] Wax Removal by Spoon/Curette Assessment and Plan Assessment & Plan (1) Impacted cerumen: Code(s): H61.20 - Impacted cerumen, unspecified ear Plan: Cerumen was removed bilaterally with lavage and curette. Patient tolerated the procedure well and TMs are visualized as intact with well aerated middle spaces. Patient notes improvement in the ringing in her ears as well as her hearing. Follow up as needed for this concern. Plan This note was constructed using voice recognition software. While every effort has been made to ensure accuracy and acid bleacher, still areas may have been included sometimes these areas may affect the content or meeting of the given symptoms. Total time spent caring for the patient today was 20 minutes. This includes time spent before the visit reviewing the chart, time spent during the visit, and time spent after the visit and documentation. Coding Level of Care Code Est Pt Level 3 (64907) Diagnoses Impacted cerumen H61.20 CPT Codes Office Procedure - CPT: 58108-Bjq Wax Removal by Spoon/Curette ([id number])
[2024-04-23 11:37] VITALS: BP 112/66; PULSE 74; O2SAT 99; BMI 30.6
== END 2024-04-23 11:55 | disposition home or self-care (01) ==
PROVIDERS: PCP Internal Medicine
DX: H61.23 Impacted cerumen, bilateral (principal)
CPT/HCPCS: 69210; 99213

== ENCOUNTER 2024-08-20 08:39 | Outpatient (REF) | payer MEDICARE, SELFPAY ==
--- NOTE | ~2024-08-20 | XR_ITS ---
EXAMINATION: XR CHEST 2 VIEWS HISTORY: R05.9 - Cough, unspecified COMPARISON: There are no prior studies for comparison. FINDINGS: PA and lateral views of the chest are submitted. The lungs are expanded and clear. There is no pleural effusion, pneumothorax, or pulmonary vascular congestion. The heart is normal in size. There is mild degenerative disc disease of the spine. XR/XR chest 2V IMPRESSION: Clear lungs. Electronically signed by: eLnin Lyn MD 08/20/2024 09:52 AM EST
== END 2024-08-20 08:40 | disposition home or self-care (01) ==
LOC: HO.HMGCX 08:39
PROVIDERS: PCP Internal Medicine; Visit Provider Internal Medicine
DX: R05.9 Cough, unspecified (principal); J06.9 Acute upper respiratory infection, unspecified
CPT/HCPCS: 71046; 99212

== ENCOUNTER 2024-08-20 08:39 | Outpatient (AMB) | payer MEDICARE, SELFPAY ==
--- NOTE | 2024-08-20 09:07 | MHC.OFFWIV ---
Intake Vital Signs 08/20/24 09:10 Weight 184 lb BP 130/82 Blood Pressure Location Lt brachial Position Sitting Pulse 62 Pulse Source Pulse Oximeter Temp 98 F Temp Source Oral Pulse Oximetry (%) 99 Oxygen Delivery Method Room Air Intake Visit Reasons: EP Upper Respiratory symptoms Intake Note: Patient here for headache, teeth pain, green mucus, bloody nose from left nostril that has been present since Tuesday. Patient Tobacco Use Status: Never used Tobacco Allergies lisinopril [LISINOPRIL] Allergy (Severe, Verified 08/20/24 09:23) TONGUE NUMBNESS, ITCHY, Numb tongue, cough, oral numbness codeine [Codeine] Allergy (Unknown, Verified 08/20/24 09:23) SWELLING, unknown flurazepam [From Dalmane] Allergy (Unknown, Verified 08/20/24 09:23) SWELLING tetracycline [Tetracycline] Allergy (Unknown, Verified 08/20/24 09:23) SWELLING, facial edema, facial swelling, neck swelling CAT GUT SUTURES' Allergy (Unknown, Uncoded 08/20/24 09:23) UNKNOWN Medication List - Last Reconciled 08/20/24 by Juan Lopes MD acetaminophen 1,000 mg (2 x 500 mg) PO Q6H PRN aspirin 81 mg PO DAILY hydrochlorothiazide 25 mg PO QAM metoprolol tartrate 50 mg PO BID omeprazole 20 mg PO DAILY rosuvastatin 10 mg PO BEDTIME sertraline 150 mg (1.5 x 100 mg) PO DAILY valacyclovir 500 mg PO DAILY PFSH Medical History Hypertension GERD (gastroesophageal reflux disease) Hyperlipidemia Generalized anxiety disorder Surgical History History of colonoscopy History of right knee surgery History of removal of ovarian cyst History of appendectomy Family History Father No problems noted. Mother No problems noted. Brother No problems noted. Brother No problems noted. Other Mental health disorder Substance use disorder Social History Housing: House Alcohol intake: current Alcohol intake frequency: 0-2 drinks per day Alcohol type: wine Patient Tobacco Use Status: Never used Tobacco e-Cigarette/Vaping Use: Never Used Second Hand Smoke Exposure: No service: No Current occupational status: retired Cognitive needs: No Hearing needs: No Vision needs: No Physical Exam Vital Signs: Last Vital Signs Temp 98 F 08/20/24 09:10 Pulse 62 08/20/24 09:10 BP 130/82 08/20/24 09:10 Pulse Ox 99 08/20/24 09:10 Oxygen Delivery Method Room Air 08/20/24 09:10 Assessment & Plan Assessment & Plan (1) Upper respiratory tract infection: Code(s): J06.9 - Acute upper respiratory infection, unspecified Plan: History of Present Illness The patient is a 74-year-old female presenting with upper respiratory symptoms. Her symptoms began with a sore throat, noted to have started since last Tuesday, approximately one week ago. She did not experience any other symptoms until Tuesday, when she developed congestion, headache, aching teeth, and burning eyes. She reports a burning throat and productive cough with green-villalobos sputum. The patient also mentions an unusual discomfort in her chest, which she describes as neither pain nor ache, located on the backside of the chest and slightly higher up. This discomfort was present prior to the onset of other symptoms. She has not had her shingles shot and also missed the second pneumonia vaccine. Social History Review of Systems - Respiratory: Reports productive cough with green-villalobos sputum - Head/Eyes/ENT: Reports burning eyes and throat, headache, and teeth ache - Musculoskeletal: Reports unusual discomfort in the chest, not described as pain or ache Physical Exam General: Appearance normal, both eyes and all related structures Nutritional Appearance: Well nourished Orientation/consciousness: Patient oriented x3 Limitations: No limitations Head: Normal to inspection Neck: Normal visual inspection Chest: Discomfort on the backside of the chest, higher than the lower chest Respiratory: Normal respiratory effort Neurology: Patient oriented x3 Results Plan - Initiate treatment with antibiotics and prednisone for suspected bronchitis. - Obtain chest X-ray to rule out pneumonia. Patient was informed and verbally consented to the use of an ambient scribe for clinic note documentation during this visit. Discussion Notes I discussed with the patient that her symptoms and presentation are suggestive of bronchitis, but we should conduct a chest X-ray to ensure there is no underlying pneumonia. I explained that I would be prescribing antibiotics and prednisone to manage the condition and improve respiratory symptoms. We discussed the importance of monitoring symptoms, and I mentioned the need to check for any worsening of symptoms or development of new symptoms, such as shortness of breath or fever, which should prompt a return visit for further evaluation. The patient agreed with the management plan, and I guided her to the next steps for the X-ray procedure. Patient Instructions - Take antibiotics and prednisone as directed. - Attend the X-ray appointment as planned. - Monitor symptoms closely for any worsening or changes. - Return to the clinic if symptoms do not improve or if new symptoms develop, such as fever or increased difficulty breathing. Orders: Orders XR chest 2V Today R05.9 - Cough, unspecified Medications: New azithromycin take 500 mg today (day 1), then 250 mg for 4 days (days 2-5) PO 6 tabs 0RF prednisone 60 mg (3 x 20 mg) PO DAILY 9 tabs 0RF Coding Level of Care Code Est Pt Level 4 (72409) Diagnoses Upper respiratory tract infection J06.9
[2024-08-20 09:10] VITALS: BP 130/82; PULSE 62; TEMP 36.6; O2SAT 99
== END 2024-08-20 09:44 | disposition home or self-care (01) ==
PROVIDERS: PCP Internal Medicine; Visit Provider Internal Medicine
DX: J06.9 Acute upper respiratory infection, unspecified (principal)

== ENCOUNTER → 2024-08-20 09:28 | Outpatient (BNV) | payer MEDICARE, SELFPAY | PROVIDERS: PCP Internal Medicine; Visit Provider Radiology Diagnostic Radiology | DX: R05.9 Cough, unspecified (principal) | CPT/HCPCS: 71046 ==

== ENCOUNTER 2024-08-27 11:12 | Inpatient (IN) | payer MEDICARE, SELFPAY ==
[2024-08-27] VITALS (12 sets, daily range): BP systolic 138–212; BP diastolic 79–105; PULSE 63–75; RESP 12–18; TEMP 36.4–36.9; O2SAT 94–99; BMI 30.9
--- NOTE | ~2024-08-27 | CT_ITS ---
CLINICAL HISTORY: diffuse bony lesions eval for mass CT abdomen and pelvis with contrast Comparison: None Findings: Motion and streak artifact limit evaluation. Prominent inguinal nodes atelectasis Moderate-sized hiatal hernia. Please see same day CT chest report. Calcified granuloma in the spleen. Hepatic steatosis noted. Rectal and sigmoid colonic mural thickening can be seen with colitis. Fat containing umbilical hernia. Calcified uterine fibroids. Colonic diverticulosis without diverticulitis. Diffuse heterogeneous lucencies scattered throughout the spine pelvis, can be seen with myeloma, metastases amongst other etiologies, nonspecific. This may be further evaluated with nuclear medicine bone scan, as well clinically. Right-sided pathologic rib fractures with expansile lesion along the posterior right 10th rib. Please see prior CT chest report. Osteopenia with diffuse multilevel spondylosis. Distended bladder. IMPRESSION: 1. Possible proctocolitis. 2. Ill-defined bony lesions, please see above. 3. Additional findings as described. This document has been electronically signed by: Ray Fortune MD on 08/27/2024 23:02:19
--- NOTE | ~2024-08-27 | CT_ITS ---
EXAMINATION: CT HEAD WITH/WITHOUT CONTRAST CLINICAL INFORMATION: Evaluate for metastatic disease. COMPARISON: None available. TECHNIQUE: Contiguous axial imaging was performed from the skull base to vertex before and after the administration of 100 mL of Omnipaque [address] examination was performed using dose optimization techniques as appropriate, variously including the following: *Automated exposure control *Adjustment of mA and/or kV according to patient size (this includes techniques or standardized protocols for targeted exams where dose is matched to indication/reason for exam; i.e. extremities or head) *Use of iterative reconstruction technique FINDINGS: There is no evidence of intracranial hemorrhage or extra-axial fluid collection. There is no mass effect, or edema. No CT evidence of acute territorial infarct. Ventricles, sulci, and cisterns are normal in size and configuration for patient age. No hydrocephalus. No midline shift. Negative hyperdense MCA sign. Negative insular ribbon sign. 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 Partial empty sella. There are anterior falcine calcifications. After the administration of contrast, there is a punctate focus of 3 mm contrast enhancement within the left occipital pole (series 9, image 18). There is a fenestrated anterior communicating artery. Globes and orbital contents image normally. No extracranial soft tissue abnormalities. Air-fluid level in the right sphenoid sinus. The paranasal sinuses, mastoid air cells, and tympanic cavities are otherwise normally aerated. There are numerous tiny circumscribed lucencies throughout the calvarium, not entirely specific but raises possibility of myeloma versus metabolic bone disease. No additional bone abnormalities identified. CT/CT head/brain wo/w IV con IMPRESSION: 1. No intracranial hemorrhage or mass effect. No evidence of acute territorial infarct. 2. Punctate 3 mm focus of contrast enhancement in the left occipital pole, not entirely specific. Differential includes metastatic lesion or underlying vascular lesion such as a cavernous malformation. MRI is the gold standard for evaluation of metastatic disease in the brain. 3. No additional abnormal intra or extra-axial enhancement. 4. Innumerable punctate tiny circumscribed lucent foci throughout the calvarium, not entirely specific but raises possibility of myeloma versus unusual presentation of metabolic bone disease. The former is favored. These findings are new from 2021. 5. Air-fluid level right sphenoid sinus, possibly representing acute sinusitis in the appropriate clinical setting. Electronically signed by: Aakash Romo MD 08/28/2024 10:25 AM [facility]
--- NOTE | ~2024-08-27 | CT_ITS ---
CLINICAL HISTORY: R rib pain CT chest without contrast Comparison: None Findings: Right posterior 10th expansile lytic rib lesion measuring 2.5 cm on series 5, image 342. Heterogeneous and mottled appearance of the bone with suggestion of numerous tiny lytic lesions in the thoracic lumbar spine as well as multiple possible rib lesions. Remote left rib fractures healed in nonunion. Central airways, lungs, and pleural spaces are clear. Heart size normal. No pericardial effusion. No thoracic aortic aneurysm. No threshold enlarged thoracic lymph node. Small hiatal hernia. No acute finding in the partially visualized upper abdomen. IMPRESSION: 1. Expansile lytic lesion in the right posterior 10th rib suspicious for metastatic disease. 2. Diffusely mottled appearance of the bone with suggestion of numerous additional tiny lytic lesions worrisome for metastatic disease. This document has been electronically signed by: Ralph Sparrow MD on 08/27/2024 21:25:14
--- NOTE | ~2024-08-27 | US_ITS ---
EXAMINATION: US ABDOMEN LIMITED CLINICAL INFORMATION: Right upper quadrant abdominal pain. COMPARISON: Ultrasound dated August 26, 2013 TECHNIQUE: Real-time imaging of the right upper quadrant abdominal viscera using grayscale and color Doppler technique. FINDINGS: PANCREAS: No peripancreatic fluid collections. LIVER: Liver measures 14 cm. Increased echotexture. No gross solid or cystic lesion. No intrahepatic biliary ductal dilatation.. GALLBLADDER: Fluid-filled. No pericholecystic fluid collection or gallbladder wall thickening. No distention. COMMON BILE DUCT: 4 mm. RIGHT KIDNEY: 11 cm. Normal echotexture. No solid or cystic lesion. No hydronephrosis. Normal flow on color Doppler interrogation of the renal hilum. FREE FLUID: None. US/US abdomen limited IMPRESSION: No cholelithiasis. No hydronephrosis, right kidney. No hepatomegaly. No ascites. Electronically signed by: Lj Mcwilliams MD 08/27/2024 01:52 PM [facility]
--- NOTE | 2024-08-27 12:19 | ED.GENADULT ---
HPI - General Adult General Chief complaint: Abdominal Pain Stated complaint: upper r quad pain Time Seen by Provider: 08/27/24 21:31 Source: patient Mode of arrival: ambulatory Limitations: no limitations History of Present Illness ED Provider: Dr. Andree Chang HPI narrative: Patient comes to the emergency room complaining of right-sided rib pain, right-sided abdominal pain. Patient denies any trauma. Patient states that the pain has been present for 4 weeks. Denies any fever chills, denies nausea vomiting diarrhea Related Data Home Medications ?Medication ?Instructions ?Recorded ?Confirmed aspirin 81 mg tablet,delayed 81 mg PO DAILY 06/27/23 release valacyclovir 500 mg tablet 500 mg PO DAILY 08/20/24 Previous Rx's ?Medication ?Instructions ?Recorded acetaminophen 500 mg capsule 1,000 mg (2 x 500 mg) PO Q6H PRN 06/15/23 pain #30 caps hydrochlorothiazide 25 mg tablet 25 mg PO QAM #90 tabs 03/19/24 omeprazole 20 mg capsule,delayed 20 mg PO DAILY #90 caps 03/19/24 release metoprolol tartrate 50 mg tablet 50 mg PO BID #180 tabs 03/21/24 sertraline 100 mg tablet 150 mg (1.5 x 100 mg) PO DAILY 04/13/24 #135 tabs rosuvastatin 10 mg tablet 10 mg PO BEDTIME #90 tabs 06/04/24 azithromycin 250 mg tablet See Rx Instructions PO .COMPLEX #6 08/20/24 tabs prednisone 20 mg tablet 60 mg (3 x 20 mg) PO DAILY #9 tabs 08/20/24 Allergies Allergy/AdvReac Type Severity Reaction Status Date / Time lisinopril [LISINOPRIL] Allergy Severe TONGUE Verified 08/27/24 12:20 NUMBNESS, ITCHY, Numb tongue, cough, oral numbness codeine [Codeine] Allergy Unknown SWELLING, Verified 08/27/24 12:20 unknown flurazepam [From [place]] Allergy Unknown SWELLING Verified 08/27/24 12:20 tetracycline [Tetracycline] Allergy Unknown SWELLING, Verified 08/27/24 12:20 facial edema, facial swelling, neck swelling CAT GUT SUTURES' Allergy Unknown UNKNOWN Uncoded 08/20/24 09:23 Review of Systems Review of Systems: Constitutional : No Weight loss, No Fever, No Chills, No Night Sweats, No Fatigue, No Malaise ENT/Mouth : No Hearing loss, No Ear Pain, No Nasal Congestion, No Sinus Pain, No Hoarseness, No sore throat, No Rhinorrhea, No Swallowing Difficulty Eyes: No Eye Pain, No Swelling, No Redness, No Foreign Body, No Discharge, No Vision Changes Cardiovascular : No Chest Pain, No SOB, No Dyspnea on Exertion, No Orthopnea, No Edema, No Palpitations Respiratory : No Cough, No Sputum, No Wheezing, No Smoke Exposure, No Dyspnea Gastrointestinal : No Nausea, No Vomiting, No Diarrhea, No Constipation, complaining of right abdominal pain, mostly lower ribs Genitourinary : no irregular bleeding, No Dysuria, No Urinary Frequency, No Hematuria, No Urinary Incontinence, No Urgency, No Flank Pain, No Urinary Flow Changes, No Hesitancy Musculoskeletal : Complaining of right lower rib pain Skin : No Skin Lesions, No rash Neuro : No Weakness, No Numbness, No Paresthesias, No Loss of Consciousness, No Dizziness, No Headache Psych : No Anxiety/Panic, No Depression, No SI/HI/AH/VH, No Social Issues, Heme/Lymph: No Bruising, No Bleeding,No Lymphadenopathy Endocrine : No Polyuria, No Polydipsia, No Temperature Intolerance PMFSH Past Medical History Medical History Hypertension GERD (gastroesophageal reflux disease) Hyperlipidemia Generalized anxiety disorder Surgical History History of colonoscopy History of right knee surgery History of removal of ovarian cyst History of appendectomy Family History Family History Father No problems noted. Mother No problems noted. Brother No problems noted. Brother No problems noted. Other Mental health disorder Substance use disorder Social History Social History Housing: House Alcohol intake: current Alcohol intake frequency: 0-2 drinks per day Alcohol type: wine Patient Tobacco Use Status: Never used Tobacco e-Cigarette/Vaping Use: Never Used Second Hand Smoke Exposure: No Advance Directives: No Advance Directives Information Provided: No Do you have a plan to hurt others: No Plan service: No Current occupational status: retired Cognitive needs: No Hearing needs: No Vision needs: No Physical Exam ED Vital Signs: Vital Signs - 24 hr 08/27/24 12:19 08/27/24 19:29 08/27/24 21:46 Temperature 97.6 F 98.4 F 98.5 F Pulse Rate 72 63 74 Respiratory Rate 16 16 18 Blood Pressure 179/79 H 212/105 H Pulse Oximetry 97 95 99 Oxygen Delivery Method Room Air Room Air Room Air 08/27/24 22:28 08/27/24 22:29 08/27/24 22:44 Temperature Pulse Rate 73 75 Respiratory Rate 14 14 12 Blood Pressure 175/101 H 171/99 H Pulse Oximetry 96 94 Oxygen Delivery Method Room Air Room Air 08/27/24 22:59 08/27/24 23:14 08/27/24 23:29 Temperature Pulse Rate 69 68 68 Respiratory Rate 12 13 12 Blood Pressure 166/97 H 146/79 H 138/83 Pulse Oximetry 94 94 96 Oxygen Delivery Method Room Air Room Air Room Air 08/27/24 23:44 08/27/24 23:59 Temperature Pulse Rate 69 72 Respiratory Rate 12 12 Blood Pressure 170/87 H 141/86 H Pulse Oximetry 94 95 Oxygen Delivery Method Room Air Room Air BMI result Body Mass Index 30.9 Const Other: Appearance: Alert. Oriented X3. No acute distress. Eyes: Pupils equal, round and reactive to light. ENT: Pharynx normal. Neck: Normal inspection. Neck supple. No lymph nodes noted. No crepitus CVS: Normal heart rate and rhythm. Pulses normal. Normal S1 and S2 Respiratory: No respiratory distress. Breath sounds normal. No Wheezing. No rales Abdomen: Soft and nontender. No rigidity. No distention. Pain to palpation over the right side of the ribs Skin: Skin warm and dry. Normal skin color. Normal skin turgor. Extremities: No lower extremity edema. No Lacerations. No Rash Neuro: Oriented X 3. No motor deficit. No sensory deficit. Moving all extremities. No slurred speech. CN 2 through 12 grossly intact Psych: calm, cooperative, normal affect Course Course Course Narrative: This is a rapid medical exam performed by Juliette Ziegler NP: Additional HPI, ROS, PE not included below will be deferred to primary provider. Patient is a 74-year-old female with history of HTN, HLD, GERD, anxiety complaining of RUQ abdominal pain radiating to her back for the past 4 weeks. Denies nausea, vomiting but does report decreased appetite. Plan: labs, U/S Medications Administered Discontinued Medications Generic Name Dose Route Start Last Admin Trade Name Shanell PRN Reason Stop Dose Admin Hydromorphone HCl 0.5 mg 08/27/24 21:58 08/27/24 22:28 Hydromorphone Hcl 0.5 Mg/0.5 Ml Syringe IVPUSH 08/27/24 21:59 0.5 mg ONCE ONE Administration Protocol Iohexol 85 ml 08/27/24 22:20 08/27/24 22:20 Iohexol 350 Mg/Ml 100 Ml Infus..Btl IV 08/27/24 22:21 85 ml ONCE ONE Administration Medical Decision Making Medical Decision Making [facility] Narrative: My interpretation of labs, normal hematology, normal chemistry, normal calcium level CT scan of the chest shows expansile lytic lesion in the right posterior 10th rib suspicious for metastatic disease. Given the above findings, we proceeded with a CT scan of the abdomen Diffuse atherogenic lucency scattered throughout the spine, pelvis Head CT pending. Patient has been informed from the above findings. The diagnosis at this time is unclear. However, is likely to be metastases versus myeloma. But the definitive diagnosis needs to be confirmed. Patient will likely need a biopsy I discussed the above-mentioned with Dr. Romano, patient being admitted. Differential Diagnosis Differential Diagnoses: The differential diagnosis associated with the presentation includes (Rib fracture, malignancy, multiple myeloma) Admission/Observation Consideration of admission/observation: Escalation of care including admission/observation considered Consult Healthcare Provider Management of the patient was discussed with: Hospitalist Lab Data [facility] Lab Attestation statement: I reviewed the patient's lab results. 08/27/24 13:02 08/27/24 13:02 Labs: Lab Results 08/27/24 Range/Units 13:02 WBC 7.7 (4.8-10.8) X10*3/uL RBC 3.69 L (4.20-5.50) X10*6/uL Hgb 11.9 L (12.0-16.0) g/dl Hct 35.6 L (37.0-47.0) % MCV 96.5 (80.0-98.0) fL MCH 32.2 (27.0-33.0) pg MCHC 33.4 (31.0-35.0) g/dl RDW 12.7 (11.0-16.0) % Plt Count 226 D (160-400) X10*3/uL MPV 8.8 L (9.4-12.3) fL Immature Gran % (Auto) 1.4 H (0.0-0.4) % Neut % (Auto) 67.3 (45-73) % Lymph % (Auto) 20.1 (20-40) % [facility] % (Auto) 8.7 (2-11) % Eos % (Auto) 2.2 (0-4) % Baso % (Auto) 0.3 (0-2) % Lymph # (Auto) 1.5 (1.2-4.9) X10*3/uL [facility] # (Auto) 0.7 (0.1-1.2) X10*3/uL Eos # (Auto) 0.2 (0.0-0.4) X10*3/uL Baso # (Auto) 0.0 (0.0-0.2) X10*3/uL Abs Immat Gran (auto) 0.11 H (0.00-0.03) X10*3/uL Absolute Neuts (auto) 5.2 (2.0-8.3) x10*3/uL Absolute Nucleated RBC 0.000 (0.0-0.012) X10*3/uL Nucleated RBC % (auto) 0.0 (0.0-0.2) /100WBC Sodium 137 (135-145) mmol/L Potassium 4.0 D (3.3-5.1) mmol/L Chloride 102 (96-108) mmol/L Carbon Dioxide 29 (22-29) mmol/L Anion Gap 10 L (12-20) BUN 12 (9-16) mg/dL Creatinine 0.65 (0.5-1.4) mg/dL Estim Creat Clear Calc 82.6 Estimated GFR > 60 Random Glucose 92 (60-115) mg/dL Calcium 9.2 D (8.4-10.2) mg/dL Total Bilirubin 0.4 (0.0-1.0) mg/dL AST 29 (5-31) U/L ALT 13 (0-31) U/L Alkaline Phosphatase 73 (39-117) U/L Total Protein 8.0 (6.5-8.0) g/dL Albumin 3.9 (3.5-5.0) g/dL Lipase 28 (8-78) U/L Independent Interpretation I performed an independent interpretation of an: CT Scan Radiology Impression Discussion of test interpretation with radiology: I have reviewed the radiologist's reading. Radiologist Impression: Motion and streak artifact limit evaluation. Prominent inguinal nodes atelectasis Moderate-sized hiatal hernia. Please see same day CT chest report. Calcified granuloma in the spleen. Hepatic steatosis noted. Rectal and sigmoid colonic mural thickening can be seen with colitis. Fat containing umbilical hernia. Calcified uterine fibroids. Colonic diverticulosis without diverticulitis. Diffuse heterogeneous lucencies scattered throughout the spine pelvis, can be seen with myeloma, metastases amongst other etiologies, nonspecific. This may be further evaluated with nuclear medicine bone scan, as well clinically. Right-sided pathologic rib fractures with expansile lesion along the posterior right 10th rib. Please see prior CT chest report. Osteopenia with diffuse multilevel spondylosis. Distended bladder. IMPRESSION: 1. Possible proctocolitis. 2. Ill-defined bony lesions, please see above. 3. Additional findings as described. Findings: Right posterior 10th expansile lytic rib lesion measuring 2.5 cm on series 5, image 342. Heterogeneous and mottled appearance of the bone with suggestion of numerous tiny lytic lesions in the thoracic lumbar spine as well as multiple possible rib lesions. Remote left rib fractures healed in nonunion. Central airways, lungs, and pleural spaces are clear. Heart size normal. No pericardial effusion. No thoracic aortic aneurysm. No threshold enlarged thoracic lymph node. Small hiatal hernia. No acute finding in the partially visualized upper abdomen. IMPRESSION: 1. Expansile lytic lesion in the right posterior 10th rib suspicious for metastatic disease. 2. Diffusely mottled appearance of the bone with suggestion of numerous additional tiny lytic lesions worrisome for metastatic disease. Critical Care Time Critical Care Time Critical Care Time: Yes Total Critical Care Time: 45 Attestation: I have personally provided critical care time. Time includes review of lab data, radiology results, discussion with consultants, and monitoring for potential decompensation. Intervention performed as documented. Discharge Plan Discharge Clinical Impression: Lytic bone lesions on xray Patient Disposition: Admitted As Inpatient Prescriptions: No Action omeprazole 20 mg capsule,delayed release(DR/EC) 20 mg PO DAILY Qty: 90 1RF hydrochlorothiazide 25 mg tablet 25 mg PO QAM Qty: 90 1RF metoprolol tartrate 50 mg tablet 50 mg PO BID Qty: 180 1RF sertraline 100 mg tablet 150 mg PO DAILY Qty: 135 1RF rosuvastatin 10 mg tablet 10 mg PO BEDTIME Qty: 90 1RF acetaminophen 500 mg capsule 1,000 mg PO Q6H PRN (Reason: pain) Qty: 30 0RF aspirin 81 mg tablet,delayed release (DR/EC) 81 mg PO DAILY valacyclovir 500 mg tablet 500 mg PO DAILY azithromycin 250 mg tablet See Rx Instructions PO .COMPLEX Qty: 6 0RF Rx Instructions: take 500 mg today (day 1), then 250 mg for 4 days (days 2-5) PO prednisone 20 mg tablet 60 mg PO DAILY Qty: 9 0RF Print Language: Peruvian
[2024-08-27 13:07] LABS: MANUAL DIFF FLAG NO
[2024-08-27 13:09] LABS: Basophils Percent Auto 0.3 % (0-2); Eosinophils Absolute Auto 0.2 X10*3/uL (0.0-0.4); Eosinophils Percent Auto 2.2 % (0-4); Hematocrit 35.6 % (37.0-47.0); Hemoglobin 11.9 g/dl (12.0-16.0); Imm Gran Abs Auto 0.11 X10*3/uL (0.00-0.03); Imm Gran Pct Auto 1.4 % (0.0-0.4); Lymphocytes Absolute Auto 1.5 X10*3/uL (1.2-4.9); Lymphocytes Percent Auto 20.1 % (20-40); Mean Corpuscular HGB Conc 33.4 g/dl (31.0-35.0); Mean Corpuscular Hemoglobin 32.2 pg (27.0-33.0); Mean Corpuscular Volume 96.5 fL (80.0-98.0); Mean Platelet Volume 8.8 fL (9.4-12.3); Monocytes Absolute Auto 0.7 X10*3/uL (0.1-1.2); Monocytes Percent Auto 8.7 % (2-11); Neutrophils Absolute Auto 5.2 x10*3/uL (2.0-8.3); Neutrophils Percent Auto 67.3 % (45-73); Platelet Count 226 X10*3/uL (160-400); Red Blood Count 3.69 X10*6/uL (4.20-5.50); Red Cell Distribution Width 12.7 % (11.0-16.0); White Blood Count 7.7 X10*3/uL (4.8-10.8)
[2024-08-27 13:29] LABS: Alanine Aminotransferase 13 U/L (0-31); Albumin Level 3.9 g/dL (3.5-5.0); Alkaline Phosphatase 73 U/L (39-117); Anion Gap 10 (12-20); Aspartate Amino Transferase 29 U/L (5-31); Bilirubin Total 0.4 mg/dL (0.0-1.0); Blood Urea Nitrogen 12 mg/dL (9-16); Calcium 9.2 mg/dL (8.4-10.2); Carbon Dioxide 29 mmol/L (22-29); Chloride 102 mmol/L (96-108); Creatinine Clr Calc Pharmacy 82.6; Estimated Glomerular Filt Rate > 60; Glucose Random 92 mg/dL (60-115); Lipase 28 U/L (8-78); Sodium 137 mmol/L (135-145)
--- NOTE | 2024-08-27 19:35 | ECG_ITS ---
Test Reason : ABDOMINAL PAIN Blood Pressure : */* mmHG Vent. Rate : 62 BPM Atrial Rate : 62 BPM P-R Int : 172 ms QRS Dur : 86 ms QT Int : 436 ms P-R-T Axes : 64 -3 21 degrees QTcB Int : 442 ms Normal sinus rhythm Normal ECG When compared with ECG of 10-Dec-2014 06:53, No significant change was found Referred By: Generic ED Physician Electronically Signed By: Bernard Ruffin
[2024-08-27] MEDS: iohexoL 350 MG/ML 100 ML INFUS..BTL 85 ML IV (22:20)
[2024-08-27] MEDS: HYDROmorphone HCl 0.5 MG/0.5 ML SYRINGE IVPUSH (22:28)
[2024-08-28 01:32] VITALS: BP 128/79; PULSE 67; RESP 12; TEMP 36.4; O2SAT 96
--- NOTE | 2024-08-28 01:34 | P.HPHOSP_ITS ---
History of Present Illness Date of Service: 08/28/24 Chief Complaint: abominal pain This is a 74-year-old female with pertinent history of hypertension, gastroesophageal reflux disease, mood disorder, mixed hyperlipidemia who presents to the emergency department for evaluation of abdominal pain. Patient states it has been going on and off for the last 4 weeks. No inciting/precipitating factors. Pain does not increase with ambulation or p.o. intake. Does endorse decreased p.o. intake the last few months but she attributed it to her 's . No weight loss. Abdominal pain is in the right upper quadrant region, nonradiating. It was worse on the day of presentation which prompted ER visit. No associated nausea or vomiting. No fever, chills, palpitations, changes in urinary habits. No personal history of cancer. Familial history: Grandmother with breast cancer and father had prostate cancer. In the emergency department, imaging with ill-defined bony lesions scattered throughout the spine, pelvis, lytic lesion in the right posterior 10th rib suspicious for metastatic disease. Review of Systems 2 Constitutional: Constitutional: Reports fatigue, Reports malaise, Reports poor appetite and Reports weakness Cardiovascular: Cardiovascular: Reports no additional cardiovascular complaints Respiratory: Respiratory: Reports no additional respiratory complaints Gastrointestinal: Gastrointestinal: Reports abdominal pain Genitourinary: Genitourinary: Reports no additional female genitourinary complaints Neurologic: Reports weakness Endocrine: Endocrine: Reports fatigue [facility] Medical History Hypertension GERD (gastroesophageal reflux disease) Hyperlipidemia Generalized anxiety disorder Family History Father No problems noted. Mother No problems noted. Brother No problems noted. Brother No problems noted. Other Mental health disorder Substance use disorder Surgical History History of colonoscopy History of right knee surgery History of removal of ovarian cyst History of appendectomy Social History Housing: House Alcohol intake: current Alcohol intake frequency: 0-2 drinks per day Alcohol type: wine Patient Tobacco Use Status: Never used Tobacco e-Cigarette/Vaping Use: Never Used Second Hand Smoke Exposure: No Advance Directives: No Advance Directives Information Provided: No Do you have a plan to hurt others: No Plan service: No Current occupational status: retired Cognitive needs: No Hearing needs: No Vision needs: No Meds Allergies Allergy/AdvReac Type Severity Reaction Status Date / Time lisinopril [LISINOPRIL] Allergy Severe TONGUE Verified 08/27/24 12:20 NUMBNESS, ITCHY, Numb tongue, cough, oral numbness codeine [Codeine] Allergy Unknown SWELLING, Verified 08/27/24 12:20 unknown flurazepam [From [facility]] Allergy Unknown SWELLING Verified 08/27/24 12:20 tetracycline [Tetracycline] Allergy Unknown SWELLING, Verified 08/27/24 12:20 facial edema, facial swelling, neck swelling CAT GUT SUTURES' Allergy Unknown UNKNOWN Uncoded 08/20/24 09:23 Home Medications ?Medication ?Instructions ?Recorded ?Confirmed ?Last Taken ?Type aspirin 81 mg tablet,delayed 81 mg PO DAILY 06/27/23 Unknown History release valacyclovir 500 mg tablet 500 mg PO DAILY 08/20/24 Unknown History Physical Exam 2 Vital Signs and Narrative: Vital Signs: Last Vital Signs Temp 98.5 F 08/27/24 21:46 Pulse 72 08/27/24 23:59 Resp 12 08/27/24 23:59 BP 141/86 H 08/27/24 23:59 Pulse Ox 95 08/27/24 23:59 O2 Del Method Room Air 08/27/24 23:59 BMI result Body Mass Index 30.9 Middle-aged female lying in bed in no distress Neck supple, no JVD Regular rate and rhythm, S1-S2 heard Regular breath sounds bilaterally, no wheezing or crackles appreciated Abdomen soft nontender, no guarding, no rigidity Patient is awake, alert and oriented to self, place, time and person ; no focal motor deficit Psych: Normal mood No pedal edema Results Labs 08/27/24 13:02 08/27/24 13:02 Labs: Laboratory Results - last 24 hr 08/27/24 13:02 MCV 96.5 MCH 32.2 MCHC 33.4 RDW 12.7 Plt Count 226 D MPV 8.8 L Immature Gran % (Auto) 1.4 H Neut % (Auto) 67.3 Lymph % (Auto) 20.1 [place] % (Auto) 8.7 Eos % (Auto) 2.2 Baso % (Auto) 0.3 Lymph # (Auto) 1.5 [place] # (Auto) 0.7 Eos # (Auto) 0.2 Baso # (Auto) 0.0 Abs Immat Gran (auto) 0.11 H Absolute Neuts (auto) 5.2 Absolute Nucleated RBC 0.000 Nucleated RBC % (auto) 0.0 Anion Gap 10 L Estim Creat Clear Calc 82.6 Estimated GFR > 60 Random Glucose 92 Calcium 9.2 D Total Bilirubin 0.4 AST 29 ALT 13 Alkaline Phosphatase 73 Total Protein 8.0 Albumin 3.9 Lipase 28 Imaging Radiologist's Impressions: Impressions Abdomen Ultrasound 08/27/24 13:18 IMPRESSION: No cholelithiasis. No hydronephrosis, right kidney. No hepatomegaly. No ascites. Electronically signed by: Lj Mcwilliams MD 08/27/2024 01:52 PM EST Assessment and Plan (1) Bone lesion: Status: Acute (2) Intractable pain: Status: Acute Plan This is a 74-year-old female with pertinent history of hypertension, gastroesophageal reflux disease, mood disorder, mixed hyperlipidemia who presents to the emergency department for evaluation of abdominal pain. #. Intractable pain: imaging with ill-defined bony lesions scattered throughout the spine, pelvis, lytic lesion in the right posterior 10th rib suspicious for metastatic disease. IV opioids p.r.n. for analgesia. Consulting Oncology, appreciate assistance. CT head pending #. Hypertension: Continue home antihypertensives #. Gastroesophageal reflux disease: On PPI #. Mood disorder: Continue home mood stabilizers #. Mixed hyperlipidemia: On statin Med rec pending DVT prophylaxis: Lovenox Full code Admit as inpatient and will require two night minimum hospital stay for evaluation of lytic bone lesions, IV opiates for analgesia (as above), which is not possible in a lesser acute setting. Specialist consult pending Quality Stroke Does the patient have a stroke diagnosis?: No VTE Prior VTE?: No VTE Risk Level:: Medical - moderate - high VTE Device Contraindication: Treatment Not Indicated VTE Drug Contraindication: N/A - Med Ordered
[2024-08-28 05:12] LABS: MANUAL DIFF FLAG NO
[2024-08-28 05:18] LABS: Basophils Percent Auto 0.2 % (0-2); Eosinophils Absolute Auto 0.2 X10*3/uL (0.0-0.4); Eosinophils Percent Auto 1.9 % (0-4); Hematocrit 30.8 % (37.0-47.0); Hemoglobin 10.7 g/dl (12.0-16.0); Imm Gran Abs Auto 0.07 X10*3/uL (0.00-0.03); Imm Gran Pct Auto 0.9 % (0.0-0.4); Lymphocytes Absolute Auto 1.5 X10*3/uL (1.2-4.9); Lymphocytes Percent Auto 18.1 % (20-40); Mean Corpuscular HGB Conc 34.7 g/dl (31.0-35.0); Mean Corpuscular Hemoglobin 32.8 pg (27.0-33.0); Mean Corpuscular Volume 94.5 fL (80.0-98.0); Mean Platelet Volume 9.1 fL (9.4-12.3); Monocytes Absolute Auto 0.8 X10*3/uL (0.1-1.2); Monocytes Percent Auto 9.4 % (2-11); Neutrophils Absolute Auto 5.6 x10*3/uL (2.0-8.3); Neutrophils Percent Auto 69.5 % (45-73); Platelet Count 195 X10*3/uL (160-400); Red Blood Count 3.26 X10*6/uL (4.20-5.50); Red Cell Distribution Width 12.7 % (11.0-16.0); White Blood Count 8.1 X10*3/uL (4.8-10.8)
[2024-08-28 05:29] LABS: Anion Gap 14 (12-20); Blood Urea Nitrogen 11 mg/dL (9-16); Calcium 9.1 mg/dL (8.4-10.2); Carbon Dioxide 22 mmol/L (22-29); Chloride 99 mmol/L (96-108); Creatinine Clr Calc Pharmacy 94.3; Estimated Glomerular Filt Rate > 60; Glucose Random 98 mg/dL (60-115); Potassium 3.5 mmol/L (3.3-5.1); Sodium 131 mmol/L (135-145)
[2024-08-28] MEDS: HYDROmorphone HCl 0.5 MG/0.5 ML SYRINGE IVPUSH ×2 (05:54→13:16)
--- NOTE | 2024-08-28 09:11 | PHA.MEDREC ---
Addendum entered by Xena Bowman RPh 08/28/24 09:41: Reviewed by pharmacy, patient states she is still on rosuvastatin though we do not have claim history for this Original Note: Pharmacy Consult ? Medication Reconciliation Pharmacy has completed the medication reconciliation. Spoke to patient to confirm med list. Patient was able to confirm all her medication. Last time she took her medication was yesterday.
[2024-08-28] MEDS: iohexoL 350 MG/ML 100 ML INFUS..BTL IV (09:34)
--- NOTE | 2024-08-28 10:08 | PC.NURSE ---
alert and oriented with even and unlabored respirations. ambulates independently to and from the bathroom. 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 visitor at bedside, awaiting bed assignment/ct scan results
[2024-08-28] MEDS: Enoxaparin Sodium 40 MG/0.4 ML SYRINGE SUBCUT (10:13)
[2024-08-28] MEDS: 0.9 % Sodium Chloride Flush 3 ML SYRINGE IVFLUSH (10:14)
[2024-08-28] MEDS: oxyCODONE HCl Immed Release 5 MG TABLET PO (10:17)
--- NOTE | 2024-08-28 11:28 | P.CNHO_ITS ---
Subjective - Subjective Chief complaint: Right rib pain Patient: new to practice Consult date: 08/28/24 Primary Care Provider: Juan Lopes MD HPI - Consult Narrative Reason for consult: Lytic lesions Narrative: Coby Adamson is a 74 year old woman with no significant past medical history who presented with complaints of right posterior back upper abdominal pain which has been going on and off for a few weeks. She attributed this to generalized body aches that she has had on and off. However yesterday the pain increased in severity which caused her to come to the emergency department. Her a few months ago, she has been somewhat down because of that. She has not been eating much but has not had any major weight loss. Her maternal grandmother had colon cancer and her father had early prostate cancer. She has 3 siblings 1 of alcohol-related complications. She does not have any children. She used to drink alcohol on a daily basis but not in the last 6 months. She was never a smoker. Her sister was at her bedside today. 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 Denies any constitutional symptoms such as fever, chills, night sweats or unexplained weight loss. She does not have any major medical problems except history of pneumonia and bronchitis. Review of Systems - Constitutional Reports as per HPI, Reports malaise - Cardiovascular Reports no additional cardiovascular complaints - Respiratory Reports no additional respiratory complaints - Gastrointestinal Reports no additional gastrointestinal complaints - Neurologic Reports weakness Oncology Screenings - ECOG Performance Status ECOG Performance Status: 0 [facility] Medical History: Medical History (Last Reviewed 08/28/24 @ 01:38 by Radha Romano MD) Generalized anxiety disorder GERD (gastroesophageal reflux disease) Hyperlipidemia Hypertension Family History: Family History (Last Reviewed 08/28/24 @ 01:38 by Radha Romano MD) Father No problems noted. Mother No problems noted. Brother No problems noted. Brother No problems noted. Other Mental health disorder Substance use disorder Surgical History: Surgical History (Last Reviewed 08/28/24 @ 01:38 by Radha Romano MD) History of appendectomy History of colonoscopy History of removal of ovarian cyst History of right knee surgery Social History: Social History (Last Reviewed 08/28/24 @ 01:38 by Radha Romano MD) Living Situation History: Housing: House Tobacco History: Patient Tobacco Use Status: Never used Tobacco e-Cigarette/Vaping Use: Never Used Second Hand Smoke Exposure: No Occupation Assessmet: service: No Current occupational status: retired Home Medications and Allergies Current Medications: Current Medications Acetaminophen (Acetaminophen 325 Mg Tablet) 650 mg PO Q6H PRN PRN Reason: Pain, Mild 1-3,fever,headache Al Hydroxide/Mg Hydroxide (Magnesium Hydrox/Alum Hydrox 30 Ml Oral.Susp) 30 ml PO Q4H PRN PRN Reason: Heartburn Calcium Carbonate (Calcium Carbonate 750 Mg Tab.Chew) 750 mg PO Q4H PRN PRN Reason: Heartburn Enoxaparin Sodium (Enoxaparin Sodium 40 Mg/0.4 Ml Syringe) 40 mg SUBCUT Q24H [facility] Last Admin: 08/28/24 10:13 Dose: 40 mg Hydromorphone HCl (Hydromorphone Hcl 0.5 Mg/0.5 Ml Syringe) 0.5 mg IVPUSH Q4H PRN; Protocol PRN Reason: Pain, Severe (Pain Scale 7-10) Last Admin: 08/28/24 05:54 Dose: 0.5 mg Magnesium Hydroxide (Milk Of Magnesia 30 Ml Oral.Susp) 30 ml PO DAILY PRN PRN Reason: Constipation Melatonin (Melatonin 3 Mg Tablet) 6 mg PO BEDTIME PRN PRN Reason: Insomnia Ondansetron HCl (Ondansetron Hcl 4 Mg/2 Ml Vial) 4 mg IVPUSH Q8H PRN PRN Reason: Nausea and Vomiting Oxycodone HCl (Oxycodone Hcl Immed Release 5 Mg Tablet) 5 mg PO Q4H PRN PRN Reason: Pain, Moderate(Pain Scale 4-6) Last Admin: 08/28/24 10:17 Dose: 5 mg Sodium Chloride (0.9 % Sodium Chloride Flush 3 Ml Syringe) 3 ml IVFLUSH [facility] Last Admin: 08/28/24 10:14 Dose: 3 ml Home Medications ?Medication ?Instructions ?Recorded ?Confirmed ?Type aspirin 81 mg tablet,delayed 81 mg PO BEDTIME 06/27/23 08/28/24 History release valacyclovir 500 mg tablet 500 mg PO DAILY 08/20/24 08/28/24 History docusate sodium 100 mg capsule 100 mg PO DAILY 08/28/24 08/28/24 History (Colace) hydrochlorothiazide 25 mg tablet 25 mg PO DAILY 08/28/24 08/28/24 History ibuprofen 200 mg tablet 400 mg PO BID 08/28/24 08/28/24 History omeprazole 20 mg capsule,delayed 20 mg PO DAILY@0630 08/28/24 08/28/24 History release sennosides 8.6 mg tablet (senna) 8.6 mg PO SUTUTHSA 08/28/24 08/28/24 History turmeric 400 mg capsule 400 mg PO DAILY 08/28/24 08/28/24 History vitamin B complex 1 tab PO DAILY 08/28/24 08/28/24 History Allergies Allergy/AdvReac Type Severity Reaction Status Date / Time lisinopril [LISINOPRIL] Allergy Severe TONGUE Verified 08/27/24 12:20 NUMBNESS, ITCHY, Numb tongue, cough, oral numbness codeine [Codeine] Allergy Unknown SWELLING, Verified 08/27/24 12:20 unknown flurazepam [From [facility]] Allergy Unknown SWELLING Verified 08/27/24 12:20 tetracycline [Tetracycline] Allergy Unknown SWELLING, Verified 08/27/24 12:20 facial edema, facial swelling, neck swelling CAT GUT SUTURES' Allergy Unknown UNKNOWN Uncoded 08/20/24 09:23 Physical Exam Vital signs: Vital Signs Temp 97.6 F 08/28/24 01:32 Pulse 67 08/28/24 01:32 Resp 12 08/28/24 01:32 BP 128/79 08/28/24 01:32 Pulse Ox 96 08/28/24 01:32 O2 Del Method Room Air 08/28/24 01:32 Intake & Output 08/27/24 08/28/24 08/28/24 18:59 06:59 18:59 Other: Weight 84.368 kg Weight 84.368 kg - Constitutional Present: no acute distress - Routine HEENT Exam Head: Present: normal inspection Eye: Present: EOMI - Routine Neck Exam Present: supple. Absent: lymphadenopathy - Routine Respiratory Exam Present: CTAB. Absent: accessory muscle use - Routine Cardiovascular Exam Cardiovascular: Present: RRR, S1, S2 - Routine Abdominal Exam Present: soft - Routine Extremities Exam Present: pulses intact - Routine Skin Exam Present: intact Hem/Onc Consult Result - Labs CBC & Chem 7: 08/28/24 04:11 08/28/24 04:11 Labs: Short CBC 08/27/24 08/28/24 Range/Units 13:02 04:11 WBC 7.7 8.1 (4.8-10.8) X10*3/uL Hgb 11.9 L 10.7 L (12.0-16.0) g/dl Hct 35.6 L 30.8 L (37.0-47.0) % Plt Count 226 D 195 (160-400) X10*3/uL BMP 08/27/24 08/28/24 13:02 04:11 Sodium 137 131 L Potassium 4.0 D 3.5 Chloride 102 99 Carbon Dioxide 29 22 BUN 12 11 Creatinine 0.65 0.57 Calcium 9.2 D 9.1 Liver Function 08/27/24 Range/Units 13:02 Total Bilirubin 0.4 (0.0-1.0) mg/dL AST 29 (5-31) U/L ALT 13 (0-31) U/L Alkaline Phosphatase 73 (39-117) U/L Albumin 3.9 (3.5-5.0) g/dL Assessment and Plan Patient Active problem list reviewed?: Yes (1) Lytic bone lesions on xray Status: Acute Assessment and plan: 1. This is a 74-year-old woman presenting with right upper quadrant, posterior back pain who was diagnosed with multiple lytic bony lesions predominantly a 2.5 cm lytic rib lesion in the right posterior 10th rib. There were numerous tiny lytic lesions in the thoracic lumbar spine as well as multiple possible rib lesions. Remote left rib fracture, healed. CT abdomen/pelvis revealed ill- defined bony lesions throughout the spine, pelvis suggestive of multiple myeloma or metastasis. No evidence of any organ involvement. Patient is up-to-date with mammogram and colonoscopies. She has not experienced any significant constitutional symptoms. Blood work has been submitted for multiple myeloma, serum protein electrophoresis, immunofixation and 24 hour urine immunofixation. I have also recommended biopsy of the right posterior 10th rib lesion for definitive diagnosis. For pain management, she can be started on oxycodone 5 mg 1 tablet every 8 hours as needed. She can be discharged home and follow-up this week in oncology clinic. I thank you very much for this consultation. - Time Spent With Patient Time Spent with Patient (in minutes): 25 Additional Coding: - Additional E/M codes Complex E/M visit Add On: CPT G2210
[2024-08-28 13:06] LABS: Lactate Dehydrogenase 210 U/L (122-220)
--- NOTE | 2024-08-28 13:24 | P.DS_ITS ---
DS: Providers Provider Date of Service: 08/28/24 Date of admission: 08/28/24 01: Date of discharge: 08/28/24 Primary care physician: Juan Lopes MD Consults: 08/28/24 01: Consult to Hematology / Oncology Routine Consulting Provider: [facility] [place] Oncology/Hematology Reason for consultation: lytic bony lesions ?mets DS: Diagnosis Discharge Diagnosis (1) Bone lesion: Status: Acute (2) Intractable pain: Status: Acute DS: Summary Hospital Course Hospital Course: Date of Service: 08/28/24 Chief Complaint: abominal pain This is a 74-year-old female with pertinent history of hypertension, gastroesophageal reflux disease, mood disorder, mixed hyperlipidemia who presents to the emergency department for evaluation of abdominal pain. Patient states it has been going on and off for the last 4 weeks. No inciting/precipitating factors. Pain does not increase with ambulation or p.o. intake. Does endorse decreased p.o. intake the last few months but she attributed it to her 's . No weight loss. Abdominal pain is in the right upper quadrant region, nonradiating. It was worse on the day of presentation which prompted ER visit. No associated nausea or vomiting. No fever, chills, palpitations, changes in urinary habits. No personal history of cancer. Familial history: Grandmother with breast cancer and father had prostate cancer. In the emergency department, imaging with ill-defined bony lesions scattered throughout the spine, pelvis, lytic lesion in the right posterior 10th rib suspicious for metastatic disease. Hospital course: 74-year-old female with pertinent history of hypertension, gastroesophageal reflux disease, mood disorder, mixed hyperlipidemia who presents to the emergency department for evaluation of intractable right-sided abdominal pain, patient underwent extensive workup, CT chest showed lytic lesion right posterior 10th rib, multiple other bony lesions noted on ribs, thoracic and lumbar spine, CT head showed 3 mm focus of contrast enhancement in left occipital pole, not entirely specific, innumerable punctate tiny circumscribed lucent foci throughout the calvarium not entirely specific but raised possibility of myeloma versus unusual presentation of metabolic bone disease, patient treated with IV Dilaudid and oxycodone subsequently seen by Dr. Bingham from Oncology she ordered testing to rule out multiple myeloma and recommended outpatient bone biopsy, and further workup for abnormal CT brain as outpatient since patient is hemodynamically stable she is being discharged home on oxycodone 5 mg q.4 hours as needed for intractable pain recommend to drink plenty of fluids and add stool softeners. Recommend to avoid scheduled NSAIDs for pain control. #. Hypertension: Continue home antihypertensives , mild chronic intermittent hyponatremia likely due to hydrochlorothiazide recommend outpatient follow-up with PCP. #. Gastroesophageal reflux disease continue PPI #. Mood disorder: Continue home mood stabilizers Time Attestation Discharge Coordination Time (in mins): 38 Quality: Safe Use of Opioids Does Pt have an Active Cancer Diagnosis on the Problem List?: No Quality: Stroke Does the patient have a stroke diagnosis?: No Physical Exam Vital Signs: Vital Signs: Last Vital Signs Temp 97.6 F 08/28/24 01:32 Pulse 67 08/28/24 01:32 Resp 12 08/28/24 01:32 BP 128/79 08/28/24 01:32 Pulse Ox 96 08/28/24 01:32 O2 Del Method Room Air 08/28/24 01:32 BMI result Body Mass Index 30.9 Const: Other: General awake alert x3 no acute distress Neck supple, no JVD Regular rate and rhythm, S1-S2 heard Regular breath sounds bilaterally, no wheezing or crackles appreciated Abdomen soft nontender, no guarding, no rigidity No pedal edema Psych appropriate affect Neuro nonfocal. DS: Data Data Completed and Pending Labs on day of discharge: Laboratory Results - last 24 hr 08/27/24 08/28/24 08/28/24 13:02 04:11 12:37 WBC 8.1 RBC 3.26 L Hgb 10.7 L Hct 30.8 L MCV 94.5 MCH 32.8 MCHC 34.7 RDW 12.7 Plt Count 195 MPV 9.1 L Immature Gran % (Auto) 0.9 H Neut % (Auto) 69.5 Lymph % (Auto) 18.1 L [place] % (Auto) 9.4 Eos % (Auto) 1.9 Baso % (Auto) 0.2 Lymph # (Auto) 1.5 [place] # (Auto) 0.8 Eos # (Auto) 0.2 Baso # (Auto) 0.0 Abs Immat Gran (auto) 0.07 H Absolute Neuts (auto) 5.6 Absolute Nucleated RBC 0.000 Nucleated RBC % (auto) 0.0 Sodium 137 131 L Potassium 4.0 D 3.5 Chloride 102 99 Carbon Dioxide 29 22 Anion Gap 10 L 14 BUN 12 11 Creatinine 0.65 0.57 Estim Creat Clear Calc 82.6 94.3 Estimated GFR > 60 > 60 Random Glucose 92 98 Calcium 9.2 D 9.1 Total Bilirubin 0.4 AST 29 ALT 13 Alkaline Phosphatase 73 Lactate Dehydrogenase 210 Total Protein 8.0 Albumin 3.9 Lipase 28 Discharge Plan Discharge Anticipated Discharge Date/Time: 08/28/24 12:59 Patient Disposition: Home, Self-Care Discharge Diagnosis: Intractable pain Referrals: Juan Lopes MD [Primary Care Provider] - 1 Week Discharge Medications: New oxycodone 5 mg Tablet 5 mg PO Q4H PRN (Reason: Pain, Moderate(Pain Scale 4-6)) Qty: 30 0RF Rx Instructions: Partial Fill upon patient request. Continued metoprolol tartrate 50 mg tablet 50 mg PO BID Qty: 180 1RF sertraline 100 mg tablet 150 mg PO DAILY Qty: 135 1RF rosuvastatin 10 mg tablet 10 mg PO BEDTIME Qty: 90 1RF sennosides [senna] 8.6 mg Tablet 8.6 mg PO SUTUTHSA ibuprofen 200 mg Tablet 400 mg PO BID docusate sodium [Colace] 100 mg Capsule 100 mg PO DAILY vitamin B complex Tablet 1 tab PO DAILY turmeric 400 mg Capsule 400 mg PO DAILY omeprazole 20 mg capsule,delayed release(DR/EC) 20 mg PO DAILY@0630 hydrochlorothiazide 25 mg tablet 25 mg PO DAILY aspirin 81 mg tablet,delayed release (DR/EC) 81 mg PO BEDTIME valacyclovir 500 mg tablet 500 mg PO DAILY Discharge Orders: Discharge Order (Routine); Ordered 08/28/24 Ordered By: Melisa Busby Diet: Advance to usual diet Activity on Discharge: As tolerated Stand Alone Forms: Patient Portal Discharge page Print Language: Italian Care Plan Goals: Intractable pain take oxycodone 1 tablet q.4 hours as needed Drink plenty of fluids take stool softeners Health Concerns: Continue all home medications as before Plan of Treatment: Outpatient follow-up with Dr. Bingham call for appointment Assessment: as above
--- NOTE | 2024-08-28 13:37 | MHC.CM.PN ---
IMM 08/28/24, Pt lives alone (with her 2 dogs), she is independent, no home health services. PCP confirmed: Dr. Lopes. HCP is Kayode Caceres, copy requested. Pt can arrange transport home at DC. DCP: home, self care. CM to follow for DC needs.
[2024-08-28 13:58] VITALS: BP 121/70; PULSE 69; RESP 14; TEMP 36.4; O2SAT 99
[2024-08-30 10:14] LABS: Kappa Light Chain, Free Serum 32.9 mg/L (3.3-19.4); Kappa/Lambda Lt Ch Free Ratio 4.84 (0.26-1.65); Lambda Light Chain, Free Serum 6.8 mg/L (5.7-26.3)
[2024-08-31 13:18] LABS: PES - Abn Protein Band 1 1.4 g/dL (NONE DETECTED); Prot Elec - Albumin 3.8 g/dL (3.8-4.8); Prot Elec - Alpha1 0.3 g/dL (0.2-0.3); Prot Elec - Alpha2 1.1 g/dL (0.5-0.9); Prot Elec - Beta 1 0.4 g/dL (0.4-0.6); Prot Elec - Beta 2 0.3 g/dL (0.2-0.5); Prot Elec - Gamma 1.7 g/dL (0.8-1.7); Prot Elec - Total Protein 7.6 g/dL (6.1-8.1)
[2024-09-02 15:29] LABS: IgA 51 mg/dL (70-320); IgG 2030 mg/dL (600-1540); IgM 19 mg/dL (50-300)
== END 2024-08-28 19:00 | disposition home or self-care (01) | DRG 544 ==
LOC: HO.ED 08-28 01:29 → HO.EDOVER 08-28 01:36
PROVIDERS: Internal Medicine; Registered Nurse Emergency; Admitting Provider Student in an Organized Health Care Education/Training Program; Emergency Provider Emergency Medicine; PCP Internal Medicine; Visit Provider Hospitalist
DX: C79.51 Secondary malignant neoplasm of bone (principal); G89.3 Neoplasm related pain (acute) (chronic); E78.2 Mixed hyperlipidemia; I10 Essential (primary) hypertension; K21.9 Gastro-esophageal reflux disease without esophagitis; Z79.82 Long term (current) use of aspirin; Z79.899 Other long term (current) drug therapy
CPT/HCPCS: 36415; 70470; 71250; 74177; 76705; 80048; 80053; 82232; 82784; 83521; 83615; 83690; 84165; 85025; 86334; 86335; 93005; 99284; J1171; J1650; Q9967

== ENCOUNTER → 2024-08-27 12:21 | Outpatient (BNV) | payer MEDICARE, SELFPAY | PROVIDERS: PCP Internal Medicine; Visit Provider Radiology Diagnostic Radiology | DX: R10.11 Right upper quadrant pain (principal); M89.59 Osteolysis, multiple sites | CPT/HCPCS: 76705 ==

== ENCOUNTER → 2024-08-27 19:35 | Outpatient (BNV) | payer MEDICARE, SELFPAY | PROVIDERS: Admitting Provider Student in an Organized Health Care Education/Training Program; Emergency Provider Emergency Medicine; PCP Internal Medicine; Visit Provider Internal Medicine Cardiovascular Disease | DX: R10.9 Unspecified abdominal pain (principal) | CPT/HCPCS: 93010 ==

== ENCOUNTER 2024-08-28 01:31 | Outpatient (BNV) | payer MEDICARE, SELFPAY | END 2024-08-28 09:29 | PROVIDERS: Admitting Provider Student in an Organized Health Care Education/Training Program; Emergency Provider Emergency Medicine; PCP Internal Medicine; Visit Provider Radiology Diagnostic Radiology | DX: M89.8X8 Other specified disorders of bone, other site (principal) | CPT/HCPCS: 70470 ==

== ENCOUNTER → 2024-08-28 01:31 | Outpatient (BNV) | payer MEDICARE, SELFPAY | PROVIDERS: Admitting Provider Student in an Organized Health Care Education/Training Program; Emergency Provider Emergency Medicine; PCP Internal Medicine; Visit Provider Student in an Organized Health Care Education/Training Program | DX: M89.9 Disorder of bone, unspecified (principal); R52 Pain, unspecified | CPT/HCPCS: 99235; 99499 ==

== ENCOUNTER → 2024-08-28 01:31 | Outpatient (BNV) | payer MEDICARE, SELFPAY | PROVIDERS: Admitting Provider Student in an Organized Health Care Education/Training Program; Emergency Provider Emergency Medicine; PCP Internal Medicine; Visit Provider Internal Medicine | DX: R91.8 Other nonspecific abnormal finding of lung field (principal) | CPT/HCPCS: 99222 ==

== ENCOUNTER → 2024-08-30 11:00 | Outpatient (BNV) | payer MEDICARE, SELFPAY | PROVIDERS: Visit Provider Internal Medicine | DX: M89.58 Osteolysis, other site (principal) | CPT/HCPCS: 99214; G2211 ==

== ENCOUNTER → 2024-09-11 11:30 | Day surgery (SDC) | payer MEDICARE, SELFPAY ==
[2024-09-11] VITALS (14 sets, daily range): BP systolic 115–157; BP diastolic 59–97; PULSE 52–64; RESP 1–21; TEMP 36.1–36.9; O2SAT 96–100; BMI 30.8
[2024-09-11 12:23] LABS: Prothrombin Time 11.3 SEC (10.9-12.4)
[2024-09-11 12:26] LABS: Partial Thromboplastin Time 31.5 SEC (26.0-36.8)
--- NOTE | 2024-09-11 12:47 | MHC.SHP ---
Pre-Procedural Eval Section A - 24 Hr Update-Section A only Date of Service: 09/11/24 Section B - Complete if H&P > 30 days Chief Complaint: multiple myeloma vs metastasis from solid tumor Details of Present Illness: 74 y/o female who presents with a right posterior rib mass and imaging concerning for myeloma. Relevant Family History (Specify if Yes): No Relevant Social History: None Present Medications: see Short Stay Collaborative assessment Medical History: No relevant PMH History of Previous Operations: No relevant previous surgery Allergies: Allergies Allergy/AdvReac Type Severity Reaction Status Date / Time lisinopril [LISINOPRIL] Allergy Severe TONGUE Verified 08/30/24 10:56 NUMBNESS, ITCHY, Numb tongue, cough, oral numbness codeine [Codeine] Allergy Unknown SWELLING, Verified 08/30/24 10:56 unknown flurazepam [From [facility]] Allergy Unknown SWELLING Verified 08/30/24 10:56 tetracycline [Tetracycline] Allergy Unknown SWELLING, Verified 08/30/24 10:56 facial edema, facial swelling, neck swelling CAT GUT SUTURES' Allergy Unknown UNKNOWN Uncoded 08/30/24 10:56 Review of Systems Sugical H&P ROS: Negative: Constitution, Cardiovascular and Respiratory and Yes, Specify: Musculoskeletal (rib/back pain) Exam Surgical H&P Exam: Normal: Lungs, Normal: Skin and Normal: Neurological and Significant Findings: Heart (bradycardia, regular) Plan 74 y/o female with a right posterior rib mass and imaging concerning for myeloma. -CT right rib mass biopsy -CT bone marrow biopsy Time Spent With Patient Time: Total time managing care of this patient today ____ minutes.
[2024-09-11] MEDS: Midazolam HCl 5 MG/ML VIAL 1 MG IVPUSH ×2 (13:31→13:54)
[2024-09-11] MEDS: fentaNYL citrate/PF 100 MCG/2 ML VIAL 50 MCG IVPUSH ×2 (13:31→13:54)
[2024-09-11 14:41] LABS: Bone Marrow SEE SEPARATE REPORT
[2024-09-11] MEDS: Lidocaine HCl 1 % MPF 30 ML VIAL 10 ML SUBCUT (14:43)
[2024-09-11 14:54] LABS: MANUAL DIFF FLAG NO
[2024-09-11 14:59] LABS: Basophils Percent Auto 0.4 % (0-2); Eosinophils Absolute Auto 0.1 X10*3/uL (0.0-0.4); Eosinophils Percent Auto 2.9 % (0-4); Hematocrit 32.3 % (37.0-47.0); Hemoglobin 10.9 g/dl (12.0-16.0); Imm Gran Abs Auto 0.01 X10*3/uL (0.00-0.03); Imm Gran Pct Auto 0.2 % (0.0-0.4); Lymphocytes Absolute Auto 1.8 X10*3/uL (1.2-4.9); Lymphocytes Percent Auto 37.1 % (20-40); Mean Corpuscular HGB Conc 33.7 g/dl (31.0-35.0); Mean Corpuscular Hemoglobin 32.6 pg (27.0-33.0); Mean Corpuscular Volume 96.7 fL (80.0-98.0); Mean Platelet Volume 9.1 fL (9.4-12.3); Monocytes Absolute Auto 0.4 X10*3/uL (0.1-1.2); Monocytes Percent Auto 9.3 % (2-11); Neutrophils Absolute Auto 2.4 x10*3/uL (2.0-8.3); Neutrophils Percent Auto 50.1 % (45-73); Platelet Count 140 X10*3/uL (160-400); Red Blood Count 3.34 X10*6/uL (4.20-5.50); White Blood Count 4.8 X10*3/uL (4.8-10.8)
--- NOTE | 2024-09-11 18:11 | PM.HEMONCPN ---
Medical Summary - Medical Summary Date of Service: 09/11/24 Chief complaint: FOLLOW-UP FOR: MULTIPLE MYELOMA. Primary Care Provider: Dr. ray. Medical Summary: DIAGNOSIS: Multiple myeloma. Stamping Die Maker Utilized?: No - Japanese Speaking Interval History Interval history: 74-year-old lady, with recent diagnosis of multiple myeloma, here for a biopsy of the 10th rib and bone marrow. HISTORY OF PRESENT ILLNESS: 74-year-old female with history of hypertension, gastroesophageal reflux disease, mood disorder, mixed hyperlipidemia, presented to the emergency department on 08/27, for evaluation of intractable right-sided abdominal pain. DATABASE: CT chest showed lytic lesion right posterior 10th rib, multiple other bony lesions noted on ribs, thoracic and lumbar spine. CT head showed 3 mm focus of contrast enhancement in left occipital pole, not entirely specific, innumerable punctate tiny circumscribed lucent foci throughout the calvarium not entirely specific but raised possibility of myeloma versus unusual presentation of metabolic bone disease, She was given IV Dilaudid and oxycodone. 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 Calcium 9.1. Ig. IgA: 51. IgM: 19. IgG kappa monoclonal gammopathy. Free light chain ratio: 4.84. LDH: 210. LFTs: 0./. She was discharged home on oxycodone 5 mg q.4 hours as needed for intractable pain recommend to drink plenty of fluids and add stool softeners.Recommend to avoid scheduled NSAIDs for pain control. Medical History: Generalized anxiety disorder GERD (gastroesophageal reflux disease) Hyperlipidemia Hypertension Surgical History: History of appendectomy History of colonoscopy History of removal of ovarian cyst History of right knee surgery Family History: Father : Coronary artery disease. No problems noted. Mother : Of a stroke. No problems noted. Brother No problems noted. Brother No problems noted. Other Mental health disorder Substance use disorder Social History:) She worked at [employer] here at the hospital. She is . Her 9 months ago. He had a melanoma. Living Situation History: Housing: House Tobacco History: Patient Tobacco Use Status: Never used Tobacco e-Cigarette/Vaping Use: Never Used. ROS: Lately she has felt really fatigued. Sometimes it is hard for even to lift up her arms. No fever chills or night sweats. Appetite has not been that good. Denies weight loss. She gets headaches in the morning. No chest pain however she has noted retrosternal pain. Denies shortness of breath She has felt abdominal bloating and gas. No pain. No nausea or vomiting. She has been constipated. She has been taking stool softeners. Takes senna daily. Bowels are now under control. She has diffuse body aches. Denies dysuria or hematuria. Her balance is off. She has pruritus in the skin. The spirits are down. Rest of the review of systems is unremarkable. Review of Systems - Constitutional Reports system reviewed and no additional complaints, except as documented, Reports body ache(s), Reports lack of energy, Reports malaise, Reports weakness, Denies night sweats, Denies weight loss - Eyes Reports system reviewed and no additional complaints, except as documented - ENT Reports system reviewed and no additional complaints, except as documented - Cardiovascular Reports system reviewed and no additional complaints, except as documented - Respiratory Reports no additional respiratory complaints - Gastrointestinal Reports system reviewed and no additional complaints, except as documented - Genitourinary Reports no additional female genitourinary complaints - Musculoskeletal Reports system reviewed and no additional complaints, except as documented - Integumentary/Breasts Skin/Breast: Reports no additional skin complaints - Neurologic Reports system reviewed and no additional complaints, except as documented - Psychiatric Reports system reviewed and no additional complaints, except as documented - Endocrine Reports no additional endocrine complaints - Hematologic/Lymphatic Reports system reviewed and no additional complaints, except as documented - Allergic/Immunologic Reports system reviewed and no additional complaints, except as documented PMF Medical History: Medical History (Last Reviewed 09/12/24 @ 14:02 by Tammie Ortiz PA-C) Generalized anxiety disorder GERD (gastroesophageal reflux disease) Hyperlipidemia Hypertension Functional capacity: independent ambulation Patient : No Family History: Family History (Last Reviewed 09/12/24 @ 14:02 by Tammie Ortiz PA-C) Father No problems noted. Mother No problems noted. Brother No problems noted. Brother No problems noted. Other Mental health disorder Substance use disorder Surgical History: Surgical History (Last Reviewed 09/12/24 @ 14:02 by Tammie Ortiz PA-C) History of appendectomy History of colonoscopy History of removal of ovarian cyst History of right knee surgery Social History: Social History (Last Reviewed 09/12/24 @ 14:02 by Tammie Ortiz PA-C) Living Situation History: Housing: House Tobacco History: Patient Tobacco Use Status: Never used Tobacco e-Cigarette/Vaping Use: Never Used Second Hand Smoke Exposure: No Occupation Assessmet: service: No Current occupational status: retired Oncology Screenings - ECOG Performance Status ECOG Performance Status: 0 Home Medications and Allergies Home Medications ?Medication ?Instructions ?Recorded ?Confirmed ?Type aspirin 81 mg tablet,delayed 81 mg PO BEDTIME 06/27/23 09/11/24 History release valacyclovir 500 mg tablet 500 mg PO DAILY 08/20/24 09/11/24 History docusate sodium 100 mg capsule 100 mg PO DAILY 08/28/24 09/11/24 History (Colace) sennosides 8.6 mg tablet (senna) 8.6 mg PO SUTUTHSA 08/28/24 09/11/24 History turmeric 400 mg capsule 400 mg PO DAILY 08/28/24 09/11/24 History vitamin B complex 1 tab PO DAILY 08/28/24 09/11/24 History Allergies Allergy/AdvReac Type Severity Reaction Status Date / Time lisinopril [LISINOPRIL] Allergy Severe TONGUE Verified 09/12/24 13:58 NUMBNESS, ITCHY, Numb tongue, cough, oral numbness codeine [Codeine] Allergy Unknown SWELLING, Verified 09/12/24 13:58 unknown flurazepam [From Dalspringe] Allergy Unknown SWELLING Verified 09/12/24 13:58 tetracycline [Tetracycline] Allergy Unknown SWELLING, Verified 09/12/24 13:58 facial edema, facial swelling, neck swelling CAT GUT SUTURES' Allergy Unknown UNKNOWN Uncoded 09/12/24 13:58 Exam Vital signs: Vital Signs Temp 97.0 F 09/11/24 14:25 Pulse 59 09/11/24 14:40 Resp 17 09/11/24 14:40 BP 147/75 H 09/11/24 14:40 Pulse Ox 96 09/11/24 14:40 O2 Del Method Room Air 09/11/24 14:40 O2 Flow Rate 0 09/11/24 14:11 Intake & Output 09/10/24 09/11/24 09/11/24 18:59 06:59 18:59 Other: Weight 83.915 kg Weight in Grams 01510.588 Weight 83.915 kg BMI result Body Mass Index 30.8 - Constitutional Present: no acute distress - Routine HEENT Exam Head: Present: normal inspection Eye: Present: normal appearance ENT: Present: mucous membranes moist - Routine Neck Exam Present: full ROM - Routine Respiratory Exam Present: CTAB - Routine Cardiovascular Exam Cardiovascular: Present: RRR, S1, S2 - Routine Abdominal Exam Present: soft, nontender - Routine Rectal Exam Patient deferred: digital exam - Routine Extremities Exam Present: nontender - Routine Back/Spine/Pelvis Exam Back/Spine: Present: full ROM - Routine Skin Exam Present: intact - Routine Neurological Exam Present: alert, oriented X3 - Routine Psychiatric Exam Present: normal affect Data - Labs CBC & Chem 7: 09/11/24 14:51 Labs: Laboratory Last Values WBC 4.8 X10*3/uL (4.8-10.8) 09/11/24 14:51 RBC 3.34 X10*6/uL (4.20-5.50) L 09/11/24 14:51 Hgb 10.9 g/dl (12.0-16.0) L 09/11/24 14:51 Hct 32.3 % (37.0-47.0) L 09/11/24 14:51 MCV 96.7 fL (80.0-98.0) 09/11/24 14:51 MCH 32.6 pg (27.0-33.0) 09/11/24 14:51 MCHC 33.7 g/dl (31.0-35.0) 09/11/24 14:51 RDW 13.0 % (11.0-16.0) 09/11/24 14:51 Plt Count 140 X10*3/uL (160-400) L D 09/11/24 14:51 MPV 9.1 fL (9.4-12.3) L 09/11/24 14:51 Immature Gran % (Auto) 0.2 % (0.0-0.4) 09/11/24 14:51 Neut % (Auto) 50.1 % (45-73) 09/11/24 14:51 Lymph % (Auto) 37.1 % (20-40) 09/11/24 14:51 Cotton % (Auto) 9.3 % (2-11) 09/11/24 14:51 Eos % (Auto) 2.9 % (0-4) 09/11/24 14:51 Baso % (Auto) 0.4 % (0-2) 09/11/24 14:51 Lymph # (Auto) 1.8 X10*3/uL (1.2-4.9) 09/11/24 14:51 Cotton # (Auto) 0.4 X10*3/uL (0.1-1.2) 09/11/24 14:51 Eos # (Auto) 0.1 X10*3/uL (0.0-0.4) 09/11/24 14:51 Baso # (Auto) 0.0 X10*3/uL (0.0-0.2) 09/11/24 14:51 Abs Immat Gran (auto) 0.01 X10*3/uL (0.00-0.03) 09/11/24 14:51 Absolute Neuts (auto) 2.4 x10*3/uL (2.0-8.3) 09/11/24 14:51 Absolute Nucleated RBC 0.000 X10*3/uL (0.0-0.012) 09/11/24 14:51 Nucleated RBC % (auto) 0.0 /100WBC (0.0-0.2) 09/11/24 14:51 PT 11.3 SEC (10.9-12.4) 09/11/24 12:09 INR 1.0 (0.9-1.1) 09/11/24 12:09 APTT 31.5 SEC (26.0-36.8) 09/11/24 12:09 Assessment and Plan Patient Active problem list reviewed?: Yes (1) Multiple myeloma Status: Acute Assessment and plan: This is a pleasant 74-year-old lady, who had presented with diffuse bony aches and pains. DATABASE: CT chest showed lytic lesion right posterior 10th rib, multiple other bony lesions noted on ribs, thoracic and lumbar spine. CT head showed 3 mm focus of contrast enhancement in left occipital pole, not entirely specific, innumerable punctate tiny circumscribed lucent foci throughout the calvarium not entirely specific but raised possibility of myeloma versus unusual presentation of metabolic bone disease, She was given IV Dilaudid and oxycodone. Multiple myeloma Labs: Ig. IgA: 51. IgM: 19. IgG kappa monoclonal gammopathy. Free light chain ratio: 4.84. LDH: 210. PLAN: Proceed with further workup for multiple myeloma. She had a biopsy of the 10th rib lesion. I also requested IR to proceed with a bone marrow biopsy, a definitive diagnosis. Will add flow cytometry, chromosomes and myeloma FISH. I will proceed with a PET scan for staging purposes. I will refer her to [facility] a 2nd opinion. She will be treated with, daratumumab, RVD upfront, followed by consideration of [id number]-[id number] once she achieves remission. Thank you, CC: Dr. ray. Addendum: Biopsy of the 10th rib lesion revealed: Blood elements and scattered plasma cells. No metastatic disease. - Time Spent With Patient Time Spent with Patient (in minutes): 30
== END ==
LOC: HO.SSS 11:30
PROVIDERS: Pathology Anatomic Pathology & Clinical Pathology; Physician Assistant Surgical; Visit Provider Internal Medicine
DX: C90.00 Multiple myeloma not having achieved remission (principal); M89.9 Disorder of bone, unspecified; I10 Essential (primary) hypertension; E78.2 Mixed hyperlipidemia; K21.9 Gastro-esophageal reflux disease without esophagitis; F39 Unspecified mood [affective] disorder; Z79.82 Long term (current) use of aspirin; Z79.899 Other long term (current) drug therapy; Z88.1 Allergy status to other antibiotic agents; Z88.5 Allergy status to narcotic agent; Z88.8 Allergy status to other drugs, medicaments and biological substances; Z98.890 Other specified postprocedural states
CPT/HCPCS: 20225; 36415; 38222; 77012; 85025; 85610; 85730; 88173; 88184; 88185; 88237; 88264; 88300; 88305; 88307; 88311; 88313; 88342; 88374; 99152; 99153; 99213; J2003; J2250; J2310; J3010

== ENCOUNTER → 2024-09-11 13:15 | Outpatient (BNV) | payer MEDICARE, SELFPAY | PROVIDERS: Visit Provider Physician Assistant Surgical | DX: C90.00 Multiple myeloma not having achieved remission (principal) | CPT/HCPCS: 20220; 38222; 77012 ==

== ENCOUNTER 2024-09-12 13:48 | Outpatient (AMB) | payer MEDICARE, SELFPAY ==
[2024-09-12 13:55] VITALS: BP 132/76; PULSE 64; TEMP 36.1; O2SAT 97; BMI 30.2
--- NOTE | 2024-09-12 13:55 | A.OFFPC_ITS ---
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 Required: No Accompanied by: Self / Same As Patient Allergies lisinopril [LISINOPRIL] Allergy (Severe, Verified 09/12/24 13:58) TONGUE NUMBNESS, ITCHY, Numb tongue, cough, oral numbness codeine [Codeine] Allergy (Unknown, Verified 09/12/24 13:58) SWELLING, unknown flurazepam [From Dalmane] Allergy (Unknown, Verified 09/12/24 13:58) SWELLING tetracycline [Tetracycline] Allergy (Unknown, Verified 09/12/24 13:58) SWELLING, facial edema, facial swelling, neck swelling CAT GUT SUTURES' Allergy (Unknown, Uncoded 09/12/24 13:58) UNKNOWN Tobacco use date assessed: 11/03/23 Dental Screening Dental Screen Date: 11/03/23 HPI [facility] 08/28 Abd Pain HPI Details 74-year-old female past medical history of generalized anxiety disorder, GERD, hypertension, hyperlipidemia, osteopenia last seen 04/2024 coming in for hospital discharge follow up.? In review of the notes, patient was seen in [facility] ED 08/28/2024 for right-sided rib pain and abdominal pain on x-ray found to have lytic lesion of the ribs suspicious for metastatic disease and admitted for further evaluation patient was treated with IV Dilaudid and oxycodone for pain and consulted by Oncology who recommended outpatient bone biopsy. Patient was seen yesterday for bone marrow biopsy of the 10th rib for recent diagnosis of multiple myeloma plan to treat with RVD and referred to [facility] continue to follow with Hematology. Patient has a follow up appointment on September [address] Colmenares or Dr. Bingham she is unsure to discuss the biopsy results from the bone marrow and rib to discuss further treatment options. She feels her anxiety and depression is well managed on the Zoloft 150 mg declines the need for additional medical management or counseling at this time. She has been using oxycodone for her pain as needed but trying to limit herself to Tylenol and ibuprofen. She typically has pain with moving, eating or any other small movements. [facility] Medical History Hypertension GERD (gastroesophageal reflux disease) Hyperlipidemia Generalized anxiety disorder Surgical History History of colonoscopy History of right knee surgery History of removal of ovarian cyst History of appendectomy Family History Father No problems noted. Mother No problems noted. Brother No problems noted. Brother No problems noted. Other Mental health disorder Substance use disorder Social History Housing: House Alcohol intake: current Alcohol intake frequency: does not drink Alcohol type: wine Patient Tobacco Use Status: Never used Tobacco e-Cigarette/Vaping Use: Never Used Second Hand Smoke Exposure: No service: No Current occupational status: retired Cognitive needs: No Hearing needs: No Vision needs: No Questionnaire PHQ-9 Over the last 2 weeks, how often have you been bothered by any of the following problems? 1. Little interest or pleasure in doing things: not at all 2. Feeling down, depressed, or hopeless: not at all 3. Trouble falling or staying asleep, or sleeping too much: not at all 4. Feeling tired or having little energy: not at all 5. Poor appetite or overeating: not at all 6. Feeling bad about yourself - or that you are a failure or have let yourself or your family down: not at all 7. Trouble concentrating on things, such as reading the newspaper or watching television: not at all 8. Moving or speaking so slowly that other people could have noticed. Or the opposite - being so fidgety or restless that you have been moving around a lot more than usual: not at all 9. Thoughts that you would be better off or of hurting yourself in some way: not at all Total score: 0 Depression Screening Interpretation: Negative Depression Screening Done: Yes 82095 - PHQ-9 Billing: Yes Source: Developed by Drs. Lenin Barger, Iram B.Jluis Bee and colleagues, with an educational luis from [employer]. Thrive Questionnaire Date Thrive assessed: 09/12/24 I am a: Patient What is your living situation today?: I have a steady place to live Within the past 12 months, did the food you bought not last and you didn't have the money to get more?: Never true Within the past 12 months, did you worry whether your food would run out before you got money to buy more?: Never true Do you have trouble paying for medicines?: No Do you have trouble getting transportation to medical appointments?: No Do you have trouble paying your heating and electricity bill?: No Do you have trouble taking care of your child, family member or friend?: No Do you have trouble with day-to-day activities such as bathing, preparing meals, shopping, managing finances, etc.?: No Are you currently unemployed and looking for a job?: No Are you interested in more education?: No Please select the resources that you would like help with: None Currently or been in a relationship where the following occur: No concerns reported THRIVE Score: 0 AUDIT C Alcohol Use Questionnaire (AUDIT-C) 1. How often do you have a drink containing alcohol?: Monthly or less 2. How many drinks containing alcohol do you have on a typical day when you are drinking?: 1 or 2 3. How often do you have six or more drinks on one occasion?: Never Total Score: 1 MEÑO-7 AMB Questionnaire MEÑO-7 Date MEÑO - 7 assessed: 09/12/24 Feeling nervous, anxious, or on edge: 0 = Not at all Not being able to stop or control worryin = Not at all Worrying too much about different things: 0 = Not at all Trouble relaxin = Not at all Being so restless that it is hard to sit still: 0 = Not at all Becoming easily annoyed or irritable: 0 = Not at all Feeling afraid as if something awful might happen: 0 = Not at all Total MEÑO-7 score (0-4 normal; 5-9 mild; 10-14 moderate; 15-21 severe): 0 Source: Developed by Drs. Lenin Barger, Jluis Luna and colleagues, with an educational luis from [employer]. MEÑO-7 Assessment Billing MEÑO-7 Assessment Tool: MEÑO-7 Assessment 92080 Review of Systems Const Denies body aches, Denies chills, Denies fever(s), Denies headache(s) and Denies poor appetite Eyes Reports no additional complaints ENT Denies dizziness and Denies headache(s) Card Denies chest pain, Denies lightheadedness and Denies dyspnea Resp Denies cough and Denies dyspnea GI Reports no additional complaints Reports no additional complaints Musc Details: right sided rib pain Denies abnormal gait Skin/Breast Reports system reviewed and no additional complaints, except as documented Neuro Denies abnormal gait, Denies dizziness and Denies headache(s) Psych Reports no additional complaints Physical exam (Primary Care) Vital Signs: Last Vital Signs Temp 96.9 F 09/12/24 13:55 Pulse 64 09/12/24 13:55 BP 132/76 09/12/24 13:55 Pulse Ox 97 09/12/24 13:55 Oxygen Delivery Method Room Air 09/12/24 13:55 BMI result Body Mass Index 30.2 Tobacco/Smoking Status: Tobacco use Status Tobacco use date assessed 11/03/23 09/12/24 13:55 Patient Tobacco Use Status Never used Tobacco 09/12/24 13:55 e-Cigarette/Vaping Use Never Used 09/12/24 13:55 PHQ-9: PHQ-9 Score PHQ-9: Total score 0 09/12/24 16:27 Depression Screening Interpretation: Negative Thrive Assessment: Date of Thrive Assessment Date Thrive assessed 09/12/24 09/12/24 14:01 Currently or been in a relationship where the following occur: No concerns reported Const General: cooperative, healthy appearing, comfortable and no acute distress Orientation/consciousness: patient oriented x3 HENMT Head: Yes normocephalic Ears: hearing grossly normal bilaterally General nose exam: Normal external nose present Eyes General: appearance normal, both eyes and all related structures Conjunctivae: conjunctivae normal Neck Neck: Yes full ROM and Yes no lymphadenopathy Resp Effort & Inspection: normal respiratory effort Auscultation: clear to auscultation bilaterally, no crackles, no rales, no rhonchi and no wheezes Cardio Rate: regular rate Rhythm: regular rhythm Skin General skin exam: no rashes or lesions noted Neuro General: patient oriented x3 Gait exam (Neuro): Normal gait present Extrem General: Yes normal to inspection, Yes full ROM and No edema Psych Affect: normal affect Attitude: cooperative Insight: Good insight present (Psych) Judgement: Good judgement present (Psych) Coding Level of Care Code Est Pt Level 3 (10767) Diagnoses Multiple myeloma C90.00 Intractable pain R52 Hypertension I10 Generalized anxiety disorder F41.1 Additional Codes MEÑO-7 Assessment Billing - MEÑO-7 Assessment Tool: MEÑO-7 Assessment 46932 ([id number]) PHQ-9 - 22825 - PHQ-9 Billing: Yes ([id number]) Assessment & Plan Assessment & Plan (1) Multiple myeloma: Code(s): C90.00 - Multiple myeloma not having achieved remission Category: Medical Plan: Patient recently underwent bone marrow biopsy and rib biopsy for diagnosis of multiple myeloma. She is working with Oncology for a diagnosis and has a follow up next week with them. Continue to follow with Oncology for further management. (2) Intractable pain: Code(s): R52 - Pain, unspecified Category: Medical Plan: Pain is currently being managed by her oncologist. She is using Tylenol and Ibuprofen as needed and Oxycodone only when needed. (3) Hypertension: Code(s): I10 - Essential (primary) hypertension Category: Medical Plan: Continue on current blood pressure medication. Avoid salt intake and encourage healthy diet and regular exercise. (4) Generalized anxiety disorder: Code(s): F41.1 - Generalized anxiety disorder Category: Medical Plan: Feels her anxiety is well managed on the Zoloft. Initially she was beginning to wean herself off of the Zoloft but we will stay on this prescription while awaiting diagnosis from Hematology/Oncology. Declines the need for counselor at this time. Plan This note was constructed using voice recognition software. While every effort has been made to ensure accuracy and petal cutter, still areas may have been included sometimes these areas may affect the content or meeting of the given symptoms. Total time spent caring for the patient today was 20 minutes. This includes time spent before the visit reviewing the chart, time spent during the visit, and time spent after the visit and documentation.
== END 2024-09-12 14:58 | disposition home or self-care (01) ==
DX: C90.00 Multiple myeloma not having achieved remission (principal); R52 Pain, unspecified; I10 Essential (primary) hypertension; F41.1 Generalized anxiety disorder

== ENCOUNTER → 2024-09-12 13:48 | Outpatient (BNVA) | payer MEDICARE, SELFPAY | DX: C90.00 Multiple myeloma not having achieved remission (principal); R52 Pain, unspecified; F41.1 Generalized anxiety disorder; I10 Essential (primary) hypertension | CPT/HCPCS: 96127; 99212 ==

== ENCOUNTER 2024-09-25 08:12 | Outpatient (REF) | payer MEDICARE, SELFPAY ==
--- NOTE | ~2024-09-25 | PE_ITS ---
EXAMINATION: FLUORINE-18 FDG PET/CT SCAN CLINICAL INFORMATION: Multiple myeloma. TECHNIQUE: 45 minutes following the intravenous administration of 21.5 mCi of fluorine 18 FDG, images from the top of the vertex to toes were obtained using a combined PET/CT scanner with CT scan based attenuation correction. No oral or intravenous contrast was administered. Transverse, coronal, sagittal, and volume reconstruction projections were obtained. The patient's blood glucose as determined by a finger stick, was 223 mg/dL immediately prior to injection. The radiotracer was injected intravenously through right hand without any complications. Total CT exam dose-length product 223 mGy-cm. * These CT images were obtained using dose optimization techniques as appropriate, variously including the following: Automated exposure control * Adjustment of mA and/or kV according to patient size (this includes techniques or standardized protocols for targeted exams where dose is matched to indication/reason for exam; i.e. extremities or head) * Use of iterative reconstruction technique COMPARISON: None available. FINDINGS: HEAD AND NECK: No abnormal radiotracer uptake. There is nonspecific bilateral symmetrical activity seen in intraorbital medial and lateral rectus muscles. There is nonspecific mild activity seen in left posterior thyroid cartilage and C7 transverse process, slightly above the background level. No corresponding abnormality seen on CT on the visualized. This may represent mild arthritic changes. No large intracranial hemorrhage, acute territorial infarct or significant shift of midline structures. CHEST: Ports and Devices: None Lungs: No abnormal radiotracer uptake. The lungs are expanded without acute pneumonic process. There is mild haziness in both lung bases and dependent segments of both upper lobes likely atelectasis. No mediastinal mass or lymphadenopathy seen. The axilla appears unremarkable. Pleura: No significant pleural effusion. Lymph Nodes: No tracer-avid mediastinal, hilar or internal mammary or axillary lymphadenopathy. Mediastinum: There is no significant pericardial effusion/thickening. Breasts/Chest Wall: No abnormal radiotracer uptake. ABDOMEN/PELVIS: Liver/Biliary System: No focal tracer-avid liver lesion. The gallbladder appears unremarkable. Pancreas: Normal. Spleen: No abnormal radiotracer uptake. No evidence of splenomegaly. There is small accessory splenules along the inferior tip. Adrenal Glands: No abnormal radiotracer uptake. Kidneys: No hydronephrosis, hydroureter or renal calculi bilaterally. Bowel: There is no significant bowel dilatation to suggest obstruction there is diffuse colonic diverticulosis without diverticulitis. Lymph Nodes: No tracer avid retroperitoneal, mesenteric or pelvic and/or groin lymphadenopathy. Pelvic Organs: The uterus is small, anteverted with multiple small calcified fibroids. No adnexal lesions seen. MUSCULOSKELETAL: There is mild focal activity seen in the right fifth rib on axial slice 230/106 and several right posterior ribs eighth, ninth and 10th ribs on CT there is expanded right posterior 10th rib and fractures involving ninth and eighth ribs most likely traumatic. VASCULAR: Mild atherosclerotic changes of abdominal without aneurysmal dilatation. Extremities: There is no abnormal metabolic activity seen in the upper extremity. There is mild increased activity seen within the knee joints and bilateral joint effusions most suggestive of arthritic changes. Nonspecific metabolic activity seen in the bilateral proximal lower leg anterior compartment,, likely related to shivering or contusion. No abnormal activity seen in the bone marrow. Nonspecific soft tissue activity seen in the lower leg. PET/PET CT fusion skull to thigh IMPRESSION: Mild metabolic horizontal activity seen in the right fifth rib. This is unrelated to trauma and may be related to myeloma. Recommend x-ray rib correlation. Focal metabolic activity seen in right posterior right eighth, ninth and 10th ribs in a vertical line most suggestive of trauma. There are fractures with callus visualized on CT. Mild activity seen in the left posterior thyroid cartilage and likely left C7 transverse process likely DJD or trauma. No additional areas of metabolic activity seen in the skeletal system. Bilateral knee degenerative changes with small bilateral suprapatellar joint effusion. Electronically signed by: Ernie Howard MD 09/25/2024 05:05 PM [facility] [place]
== END 2024-09-25 08:13 | disposition home or self-care (01) ==
LOC: HO.PET 08:12
PROVIDERS: PCP Internal Medicine; Visit Provider Internal Medicine Medical Oncology
DX: Z13.89 Encounter for screening for other disorder (principal)

== ENCOUNTER 2024-10-02 11:16 | Day surgery (SDC) | payer MEDICARE, SELFPAY ==
[2024-09-28 06:51] VITALS: BMI 30.3
[2024-10-02] VITALS (14 sets, daily range): BP systolic 111–147; BP diastolic 59–78; PULSE 55–62; RESP 14–20; TEMP 36.2–36.4; O2SAT 95–100; BMI 30.5
--- NOTE | ~2024-10-02 | IR_ITS ---
CLINICAL HISTORY: Multiple myeloma. The patient presents to interventional radiology for placement of a port for chemotherapy. PROCEDURES: 1. Real-time ultrasound-guided access into the right internal jugular vein after documentation of selected vessel patency, and permanent image storing in the patient records. 2. Placement of a 6.6 [place] single-lumen power port. CLINICIAN: Antelmo Blank PA-C MEDICATIONS: - Versed 1.5 mg, Fentanyl 75 mcg, Lidocaine 1% 10 mL SQ -Antibiotics: Ancef 2g -For additional details, please see nursing flowsheet. Complications: None. Estimated blood loss: <5 ml Specimens: None. Contrast: None. Fluoroscopy time: 0.8 min MODERATE SEDATION TIME: 37 min PROCEDURE NOTE: The procedure, risks, benefits, and alternatives were carefully explained to the patient and written informed consent was obtained. The patient was placed supine on the fluoroscopy table. A timeout was performed. The right neck and chest was prepped and draped in usual sterile fashion. Maximum barrier technique was utilized. Local anesthesia was administered to the access site with 1% lidocaine. Under ultrasound guidance, the right internal jugular vein was accessed with a 5 fr micropuncture set. A 0.035 in wire was advanced into the IVC. A peel-away sheath was advanced over the wire and into the SVC, and the wire was removed. Next, subcutaneous lidocaine was administered to the chest. The port pocket was created after the skin incision, utilizing blunt dissection. Using blunt dissection, a subcutaneous tunnel was created that connects from the port pocket to the venotomy site. Through the peel-away sheath, the 6.6 [place] port catheter was placed. The catheter position was verified with fluoroscopy to be at the superior vena cava/right atrial junction. The port was connected to the catheter and was placed in the pocket. The venotomy site was closed with a 3-0 Vicryl subcutaneous suture. The port incision site was closed with interrupted 3-0 Vicryl subcutaneous sutures and surgical glue. Prior to closing the skin, 1 g of Ancef solution was placed in the pocket. The port was tested, flushed, and packed with heparin per routine protocol. The patient tolerated the procedure well. The patient was stable after the procedure and was transferred to the PACU. The procedure was performed under moderate sedation and with a dedicated nurse with continuous monitoring of vital signs. A permanent image of the ultrasound the neck and fluoroscopic image of the chest was saved and sent to PACS. FINDINGS: 1. Patent right internal jugular vein 2. Placement of a 6.6 [place] single lumen power port. 3. Port flushes and aspirates very well with a 10 mL syringe. No pneumothorax. IR/IR us guide venous access IMPRESSION: Placement of a 6.6 [place] single-lumen power port. PLAN: - The patient will be discharged home when stable by sedation protocol. - Port may be used immediately. This procedure was performed by Antelmo Blank PA-C, and directly supervised by Dr. Sargent Electronically signed by: Dmitry Acevedo MD 10/03/2024 01:44 PM [facility] [place]
--- NOTE | ~2024-10-02 | IR_ITS ---
CLINICAL HISTORY: Multiple myeloma. The patient presents to interventional radiology for placement of a port for chemotherapy. PROCEDURES: 1. Real-time ultrasound-guided access into the right internal jugular vein after documentation of selected vessel patency, and permanent image storing in the patient records. 2. Placement of a 6.6 [place] single-lumen power port. CLINICIAN: Antelmo Blank PA-C MEDICATIONS: - Versed 1.5 mg, Fentanyl 75 mcg, Lidocaine 1% 10 mL SQ -Antibiotics: Ancef 2g -For additional details, please see nursing flowsheet. Complications: None. Estimated blood loss: <5 ml Specimens: None. Contrast: None. Fluoroscopy time: 0.8 min MODERATE SEDATION TIME: 37 min PROCEDURE NOTE: The procedure, risks, benefits, and alternatives were carefully explained to the patient and written informed consent was obtained. The patient was placed supine on the fluoroscopy table. A timeout was performed. The right neck and chest was prepped and draped in usual sterile fashion. Maximum barrier technique was utilized. Local anesthesia was administered to the access site with 1% lidocaine. Under ultrasound guidance, the right internal jugular vein was accessed with a 5 fr micropuncture set. A 0.035 in wire was advanced into the IVC. A peel-away sheath was advanced over the wire and into the SVC, and the wire was removed. Next, subcutaneous lidocaine was administered to the chest. The port pocket was created after the skin incision, utilizing blunt dissection. Using blunt dissection, a subcutaneous tunnel was created that connects from the port pocket to the venotomy site. Through the peel-away sheath, the 6.6 [place] port catheter was placed. The catheter position was verified with fluoroscopy to be at the superior vena cava/right atrial junction. The port was connected to the catheter and was placed in the pocket. The venotomy site was closed with a 3-0 Vicryl subcutaneous suture. The port incision site was closed with interrupted 3-0 Vicryl subcutaneous sutures and surgical glue. Prior to closing the skin, 1 g of Ancef solution was placed in the pocket. The port was tested, flushed, and packed with heparin per routine protocol. The patient tolerated the procedure well. The patient was stable after the procedure and was transferred to the PACU. The procedure was performed under moderate sedation and with a dedicated nurse with continuous monitoring of vital signs. A permanent image of the ultrasound the neck and fluoroscopic image of the chest was saved and sent to PACS. FINDINGS: 1. Patent right internal jugular vein 2. Placement of a 6.6 [place] single lumen power port. 3. Port flushes and aspirates very well with a 10 mL syringe. No pneumothorax. IR/IR cvc insert tunnel w prt/panel laminator IMPRESSION: Placement of a 6.6 [place] single-lumen power port. PLAN: - The patient will be discharged home when stable by sedation protocol. - Port may be used immediately. This procedure was performed by Antelmo Blank PA-C, and directly supervised by Dr. Sargent Electronically signed by: Dmitry Acevedo MD 10/03/2024 01:44 PM EST
[2024-10-02] MEDS: Acetaminophen 1,000 MG/100 ML PIGGYBACK 400 MG IV (13:19)
[2024-10-02] MEDS: ceFAZolin Sodium/Dextrose,Iso 2 GM/50 ML PIGGYBACK IV (13:30)
[2024-10-02] MEDS: fentaNYL citrate/PF 100 MCG/2 ML VIAL 50 MCG IVPUSH ×2 (13:48→14:05)
[2024-10-02] MEDS: Midazolam HCl 5 MG/ML VIAL 1 MG IVPUSH (13:54)
[2024-10-02] MEDS: Midazolam HCl 5 MG/ML VIAL IVPUSH (14:05)
== END 2024-10-02 15:19 | disposition home or self-care (01) ==
PROVIDERS: Physician Assistant Surgical; PCP Internal Medicine; Visit Provider Internal Medicine Medical Oncology
DX: C90.00 Multiple myeloma not having achieved remission (principal); I10 Essential (primary) hypertension; E78.2 Mixed hyperlipidemia; Z79.82 Long term (current) use of aspirin; Z79.899 Other long term (current) drug therapy; Z88.1 Allergy status to other antibiotic agents; Z88.5 Allergy status to narcotic agent; Z88.8 Allergy status to other drugs, medicaments and biological substances
CPT/HCPCS: 36561; 76937; 99152; 99153; C1769; C1788; J0131; J0690; J1642; J1644; J2003; J2250; J3010

== ENCOUNTER → 2024-10-02 13:00 | Outpatient (BNV) | payer MEDICARE, SELFPAY | PROVIDERS: PCP Internal Medicine; Visit Provider Physician Assistant Surgical | DX: C90.00 Multiple myeloma not having achieved remission (principal); Z51.11 Encounter for antineoplastic chemotherapy | CPT/HCPCS: 36561; 76937; 77001 ==

== ENCOUNTER 2024-11-21 12:58 | Outpatient (REF) | payer MEDICARE, SELFPAY | END 2024-11-21 12:59 | disposition home or self-care (01) | LOC: HO.MAMMO 12:58 | PROVIDERS: PCP Internal Medicine; Visit Provider Internal Medicine | DX: Z12.31 Encounter for screening mammogram for malignant neoplasm of breast (principal) | CPT/HCPCS: 77063; 77067 ==

== ENCOUNTER → 2024-11-21 13:00 | Outpatient (BNV) | payer MEDICARE, SELFPAY | PROVIDERS: PCP Internal Medicine; Visit Provider Internal Medicine | DX: Z12.31 Encounter for screening mammogram for malignant neoplasm of breast (principal) | CPT/HCPCS: 77063; 77067 ==

== ENCOUNTER 2024-12-11 13:55 | Outpatient (AMB) | payer MEDICARE, SELFPAY ==
--- NOTE | 2024-12-11 13:58 | MHC.PC.OV ---
Vital Signs 12/11/24 14:00 Height 5 ft 5 in Weight 179 lb 6 oz BMI 29.8 BP 120/72 Blood Pressure Location Lt brachial Position Sitting Pulse 62 Pulse Source Pulse Oximeter Temp 97.3 F Temp Source Temporal Artery Scan Pulse Oximetry (%) 96 Oxygen Delivery Method Room Air Intake Visit Reasons: 3 mo f/u MM Intake Note: Patient is here to follow up on MM. Trust Administrator Required: No Security Operations Engineer: Not Required per policy Accompanied by: Self / Same As Patient Allergies lisinopril [LISINOPRIL] Allergy (Severe, Verified 12/11/24 13:59) TONGUE NUMBNESS, ITCHY, Numb tongue, cough, oral numbness codeine [Codeine] Allergy (Unknown, Verified 12/11/24 13:59) SWELLING, unknown flurazepam [From [place]] Allergy (Unknown, Verified 12/11/24 13:59) SWELLING tetracycline [Tetracycline] Allergy (Unknown, Verified 12/11/24 13:59) SWELLING, facial edema, facial swelling, neck swelling CAT GUT SUTURES' Allergy (Unknown, Uncoded 12/11/24 13:59) UNKNOWN agave Adverse Reaction (Uncoded 12/11/24 13:59) Unknown Medication List - Last Reconciled 12/11/24 by Tammie Ortiz PA-C aspirin 81 mg PO BEDTIME dexamethasone 20 mg (5 x 4 mg) PO DAILY docusate sodium (Colace) 100 mg PO DAILY hydrochlorothiazide 25 mg PO DAILY lenalidomide (Revlimid) 15 mg PO DAILY lenalidomide (Revlimid) 15 mg PO DAILY lenalidomide (Revlimid) 15 mg PO DAILY levofloxacin 500 mg PO Q24H Magic Mouthwash Diphen/Lido/Antacid 1:1:1 10 mL PO QID metoprolol tartrate 50 mg PO BID omeprazole 20 mg PO DAILY@0630 ondansetron 8 mg PO Q8H oxycodone 5 mg PO Q4H PRN oxycodone 5 mg PO Q6H PRN oxycodone 5 mg PO Q8H PRN potassium chloride ER 20 mEq PO DAILY rosuvastatin 10 mg PO BEDTIME sennosides (senna) 8.6 mg PO SUTUTHSA sertraline 150 mg (1.5 x 100 mg) PO DAILY sulfamethoxazole-trimethoprim 800-160 mg (Bactrim DS) 1 tab PO QAM turmeric 400 mg PO DAILY valacyclovir 500 mg PO DAILY valacyclovir 500 mg PO DAILY vitamin B complex 1 tab PO DAILY Tobacco use date assessed: 12/11/24 Fall risk assessment: No Falls in past year Last assessed Fall Risk: 12/11/24 Dental Screening Dental Screen Date: 12/11/24 Did you have a dental visit in the last 12 months?: Yes Did you have a dental problem in the last 6 months where you did not have access to dental care?: No Was dental information given to patient?: Patient has dentist HPI 3 mo f/u MM HPI Details 74-year-old female past medical history of generalized anxiety disorder, GERD, hypertension, hyperlipidemia, osteopenia last seen 08/2024 coming in for follow up. In review of the notes, patient was seen by Hematology/Oncology 11/2024 for multiple myeloma started on her treatment 10/22/2024 plan to return 11/27/2024 for chemo. Presenting with a follow-up related to multiple myeloma management. She reports significant side effects from chemotherapy, including oral thrush leading to metallic taste and mouth sores. Appetite has decreased, resulting in weekly IV fluids for hydration maintenance. She experiences ankle swelling, controlled with compression stockings. Dietary intake is limited due to taste alterations, and patient reports minor weight loss. [facility] Medical History Hypertension GERD (gastroesophageal reflux disease) Hyperlipidemia Generalized anxiety disorder Surgical History History of colonoscopy History of right knee surgery History of removal of ovarian cyst History of appendectomy Family History Father No problems noted. Mother No problems noted. Brother No problems noted. Brother No problems noted. Other Mental health disorder Substance use disorder Social History Housing: House Alcohol intake: current Alcohol intake frequency: does not drink Alcohol type: wine Patient Tobacco Use Status: Never used Tobacco e-Cigarette/Vaping Use: Never Used Second Hand Smoke Exposure: No service: No Current occupational status: retired Cognitive needs: No Hearing needs: No Vision needs: No Questionnaire PHQ-9 Over the last 2 weeks, how often have you been bothered by any of the following problems? 1. Little interest or pleasure in doing things: several days 2. Feeling down, depressed, or hopeless: not at all 3. Trouble falling or staying asleep, or sleeping too much: several days 4. Feeling tired or having little energy: several days 5. Poor appetite or overeating: several days 6. Feeling bad about yourself - or that you are a failure or have let yourself or your family down: not at all 7. Trouble concentrating on things, such as reading the newspaper or watching television: several days 8. Moving or speaking so slowly that other people could have noticed. Or the opposite - being so fidgety or restless that you have been moving around a lot more than usual: not at all 9. Thoughts that you would be better off or of hurting yourself in some way: not at all Total score: 5 Depression Screening Interpretation: Positive Depression Screening Done: Yes Source: Developed by Drs. Lenin Barger, Iram Kessler, Jluis Mills and colleagues, with an educational luis from [employer]. Thrive Questionnaire Date Thrive assessed: 09/12/24 I am a: Patient What is your living situation today?: I have a steady place to live Within the past 12 months, did the food you bought not last and you didn't have the money to get more?: Never true Within the past 12 months, did you worry whether your food would run out before you got money to buy more?: Never true Do you have trouble paying for medicines?: No Do you have trouble getting transportation to medical appointments?: No Do you have trouble paying your heating and electricity bill?: No Do you have trouble taking care of your child, family member or friend?: No Do you have trouble with day-to-day activities such as bathing, preparing meals, shopping, managing finances, etc.?: No Are you currently unemployed and looking for a job?: No Are you interested in more education?: No Please select the resources that you would like help with: None Currently or been in a relationship where the following occur: No concerns reported THRIVE Score: 0 AUDIT C Alcohol Use Questionnaire (AUDIT-C) 1. How often do you have a drink containing alcohol?: Never Total Score: 0 MEÑO-7 AMB Questionnaire MEÑO-7 Date MEÑO - 7 assessed: 12/11/24 Feeling nervous, anxious, or on edge: 1 = Several days Not being able to stop or control worryin = Not at all Worrying too much about different things: 0 = Not at all Trouble relaxin = Several days Being so restless that it is hard to sit still: 0 = Not at all Becoming easily annoyed or irritable: 0 = Not at all Feeling afraid as if something awful might happen: 0 = Not at all Total MEÑO-7 score (0-4 normal; 5-9 mild; 10-14 moderate; 15-21 severe): 2 Source: Developed by Drs. Lenin Barger, Iram Kessler, Jluis Mills and colleagues, with an educational luis from [employer]. Review of Systems Const Denies body aches, Denies chills, Denies fever(s), Denies headache(s) and Reports poor appetite Eyes Reports no additional complaints ENT Details: Tongue and mouth pain Denies dysphagia, Denies dizziness, Denies headache(s) and Denies odynophagia Card Denies chest pain, Reports leg edema, Denies dyspnea and Reports dyspnea on exertion Resp Denies dyspnea and Reports dyspnea on exertion GI Reports abdominal pain, Denies constipation, Denies dysphagia, Denies diarrhea, Denies nausea, Denies odynophagia and Denies vomiting Reports no additional complaints Musc Reports no additional complaints and Denies abnormal gait Skin/Breast Reports system reviewed and no additional complaints, except as documented Neuro Denies abnormal gait, Denies dizziness and Denies headache(s) Psych Reports no additional complaints Physical exam (Primary Care) Vital Signs: Last Vital Signs Temp 97.3 F 12/11/24 14:00 Pulse 62 12/11/24 14:00 BP 120/72 12/11/24 14:00 Pulse Ox 96 12/11/24 14:00 Oxygen Delivery Method Room Air 12/11/24 14:00 BMI result Body Mass Index 29.8 Tobacco/Smoking Status: Tobacco use Status Tobacco use date assessed 12/11/24 12/11/24 14:04 Patient Tobacco Use Status Never used Tobacco 12/11/24 14:04 e-Cigarette/Vaping Use Never Used 12/11/24 14:04 PHQ-9: PHQ-9 Score PHQ-9: Total score 5 12/11/24 14:04 Depression Screening Interpretation: Positive Thrive Assessment: Date of Thrive Assessment Date Thrive assessed 09/12/24 12/11/24 14:04 Currently or been in a relationship where the following occur: No concerns reported Const General: cooperative, healthy appearing, comfortable and no acute distress Orientation/consciousness: patient oriented x3 HENMT Head: Yes normocephalic Ears: hearing grossly normal bilaterally General nose exam: Normal external nose present Eyes General: appearance normal, both eyes and all related structures Conjunctivae: conjunctivae normal Neck Neck: Yes full ROM and Yes no lymphadenopathy Resp Effort & Inspection: normal respiratory effort Auscultation: clear to auscultation bilaterally, no crackles, no rales, no rhonchi and no wheezes Cardio Rate: regular rate Rhythm: regular rhythm Skin General skin exam: no rashes or lesions noted Neuro General: patient oriented x3 Gait exam (Neuro): Normal gait present Extrem General: Yes normal to inspection, Yes full ROM and No edema Psych Affect: normal affect Attitude: cooperative Insight: Good insight present (Psych) Judgement: Good judgement present (Psych) Coding Level of Care Code Est Pt Level 3 (35812) Diagnoses Multiple myeloma C90.00 Hypertension I10 GERD (gastroesophageal reflux disease) K21.9 Generalized anxiety disorder F41.1 Decreased appetite R63.0 Assessment & Plan Assessment & Plan (1) Multiple myeloma: Code(s): C90.00 - Multiple myeloma not having achieved remission Category: Medical Plan: Continue to follow with Hematology/Oncology. Planned to have chemotherapy for the next 6 months. She was seen by multiple myeloma specialists in [place] and discussed possible stem cell therapy but declined as the provider recommended against this. (2) Hypertension: Code(s): I10 - Essential (primary) hypertension Category: Medical Plan: Continue on current blood pressure medication. Avoid salt intake and encourage healthy diet and regular exercise. (3) GERD (gastroesophageal reflux disease): Code(s): K21.9 - Gastro-esophageal reflux disease without esophagitis Category: Medical Plan: Avoid trigger foods such as citrus, tomato products, soda, caffeine, spicy foods and other foods that may be irritating to your stomach. Avoid laying flat 3-4 hours after eating and elevate the head of the bed 30 degrees to prevent acid from moving into the esophagus. (4) Generalized anxiety disorder: Code(s): F41.1 - Generalized anxiety disorder Category: Medical Plan: Patient feels the anxiety and depression is well managed with sertraline 100 mg at this time. (5) Decreased appetite: Code(s): R63.0 - Anorexia Category: Medical Plan: Patient complaining of decreased appetite secondary to chemotherapy. She endorses poor p.o. intake recommend adding protein supplement into diet. Plan The patient remains on her chemotherapy regimen for multiple myeloma with continued monitoring of treatment-induced side effects, emphasizing education on improving oral care. Depression care continues with sertraline 100 mg daily, noting personal circumstances influencing stress management. Nutrition is a focus, especially concerning difficulties with palatability and intake adjustments, aiming to restore energy and weight stability. Hydration therapy is scheduled regularly. Progression of chemotherapy to maintenance therapy was agreed upon by the patient. All discussed interventions are to be revisited as needed based on biochemical and physical health outcomes. This note was constructed using voice recognition software. While every effort has been made to ensure accuracy and cnc wood lathe operator, still areas may have been included sometimes these areas may affect the content or meeting of the given symptoms. Total time spent caring for the patient today was 20 minutes. This includes time spent before the visit reviewing the chart, time spent during the visit, and time spent after the visit and documentation. Patient was informed and verbally consented to the use of an ambient scribe for clinic note documentation during this visit. Medications: Changed From sertraline 150 mg (1.5 x 100 mg) PO DAILY 135 tabs 1RF To sertraline 100 mg PO DAILY 90 tabs 1RF
[2024-12-11 14:00] VITALS: BP 120/72; PULSE 62; TEMP 36.3; O2SAT 96; BMI 29.8
== END 2024-12-11 14:36 | disposition home or self-care (01) ==
LOC: HO.HMCH 13:56
DX: C90.00 Multiple myeloma not having achieved remission (principal); I10 Essential (primary) hypertension; K21.9 Gastro-esophageal reflux disease without esophagitis; F41.1 Generalized anxiety disorder; R63.0 Anorexia

== ENCOUNTER → 2024-12-11 13:55 | Outpatient (BNVA) | payer MEDICARE, SELFPAY | DX: C90.00 Multiple myeloma not having achieved remission (principal); I10 Essential (primary) hypertension; K21.9 Gastro-esophageal reflux disease without esophagitis; F41.1 Generalized anxiety disorder; R63.0 Anorexia | CPT/HCPCS: 99212 ==

== ENCOUNTER 2025-01-14 | Outpatient (REF) | payer MEDICARE, SELFPAY ==
--- NOTE | ~2025-01-14 | XR_ITS ---
EXAMINATION: XR HIP 2 OR MORE VIEWS LEFT HISTORY: left hip pain post fall of the bed COMPARISON: There are no prior studies available for comparison. FINDINGS: Two views of the left hip are submitted. Osseous mineralization is normal. There is no fracture or dislocation. There is mild joint space narrowing. There is degenerative disc disease of the lumbar spine. Calcifications in the central pelvis likely represent uterine fibroids. XR/XR hip LT min 2V IMPRESSION: Mild joint space narrowing. No evidence of fracture of the left hip. Electronically signed by: Lenin Lyn MD 01/15/2025 07:20 AM EDT
== END 2025-01-14 00:01 | disposition home or self-care (01) ==
LOC: HO.XRAY
PROVIDERS: PCP Internal Medicine; Visit Provider Nurse Practitioner Family
DX: M25.552 Pain in left hip (principal)
CPT/HCPCS: 73502

== ENCOUNTER → 2025-01-14 14:12 | Outpatient (BNV) | payer MEDICARE, SELFPAY | PROVIDERS: PCP Internal Medicine; Visit Provider Radiology Diagnostic Radiology | DX: M25.552 Pain in left hip (principal); W06.XXXA Fall from bed, initial encounter | CPT/HCPCS: 73502 ==

== ENCOUNTER → 2025-01-31 14:54 | Outpatient (BNV) | payer MEDICARE, SELFPAY | PROVIDERS: PCP Internal Medicine; Visit Provider Radiology Diagnostic Radiology | DX: M76.02 Gluteal tendinitis, left hip (principal) | CPT/HCPCS: 73721 ==

== ENCOUNTER 2025-01-31 14:56 | Outpatient (REF) | payer MEDICARE, SELFPAY ==
--- NOTE | ~2025-01-31 | MR_ITS ---
EXAMINATION: MRI lower extremity joint without contrast TECHNIQUE: Multiplanar multisequence imaging through a lower extremity joints was performed {without} intra-articular contrast INDICATION: Fell from a bed, to a half weeks ago, persistent pain, increased with motion Prior: January 14, 2025 x-ray FINDINGS: Labrum: There is separation of labrum from articular cartilage superiorly at 12:00. Articular Cartilage/Joint fluid: As above, there is a labral-articular cartilage separation superiorly in the hip joint. Small amount joint fluid is present. Ligament/Muscle/Tendon: Ligament of teres is intact. There is a delaminated tear involving the distal gluteus medius tendon 2-3 cm in length.. Distal gluteus minimus tendon is torn and minimally retracted. Feathery fluid signal tracks along the anterior medial surface of gluteus minimus. Trace fluid signal also tracks along the lateral surface of ileus otherwise muscle fascia anterior to the anterior-inferior iliac spine. There is moderate to severe fatty atrophy of the gluteus minimus and medius muscles. There is fluid signal along the medial surface of proximal hamstring tendon at the initial tuberosity, likely chronic and degenerative. Neurovascular: Major neurovascular structures are unremarkable and symmetrical. Deep and superficial soft tissues: There is no intrapelvic mass or ascites. Visualized bowel is grossly unremarkable. Subcutaneous soft tissues are within normal limits. There is no adenopathy. Bones/Marrow: Bone marrow signal is physiologic. SI joints are symmetrical without erosions, or ankylosis. Pubic symphysis joint is degenerated with hypertrophic changes. MR/MR hip LT wo con IMPRESSION: There is a delaminated tear of the distal to 3 cm of gluteus medius tendon. Gluteus minimus is torn and retracted. There is moderate to severe fatty atrophy of the left gluteal muscles indicating the these are likely chronic tears. However, there could be acute on chronic. There is a grade 1 myofascial strain involving medial aspect of the iliopsoas muscle at level of the anterior-inferior iliac spine. There is grade 1-2 strain of anterior medial gluteus minimus muscle in the same region. Labral-Articular separation in the superior left hip joint at 12:00. Electronically signed by: Kenton Joshua MD 01/31/2025 04:03 PM EDT
== END 2025-01-31 14:57 | disposition home or self-care (01) ==
LOC: HO.MRI 14:56
PROVIDERS: PCP Internal Medicine; Visit Provider Internal Medicine Medical Oncology
DX: M25.552 Pain in left hip (principal)
CPT/HCPCS: 73721

== ENCOUNTER 2025-03-21 11:23 | Outpatient (AMB) | payer MEDICARE, SELFPAY ==
[2025-03-21 11:25] VITALS: BMI 27.8
--- NOTE | 2025-03-21 11:25 | MHC.OFFVIS ---
Vital Signs 03/21/25 11:25 Height 5 ft 5 in Weight 167 lb BMI 27.8 Intake Visit Reasons: OV-Left hip pain after a fall, MRI review Intake Note: Coby is a 74 year old female who presents today for a new problem visit with complaints of Left Hip pain. Patient reports that she fell out of bed on January 12 and had increased pain in the left hip. She had an XR which showed no fractures, and had an MRI done. She currently reports that she has been feeling better. Allergies lisinopril (LISINOPRIL) Allergy (Severe, Verified 03/21/25 11:28) TONGUE NUMBNESS, ITCHY, Numb tongue, cough, oral numbness codeine (Codeine) Allergy (Unknown, Verified 03/21/25 11:28) SWELLING, unknown flurazepam (From [place]) Allergy (Unknown, Verified 03/21/25 11:28) SWELLING tetracycline (Tetracycline) Allergy (Unknown, Verified 03/21/25 11:28) SWELLING, facial edema, facial swelling, neck swelling CAT GUT SUTURES' Allergy (Unknown, Uncoded 03/21/25 11:28) UNKNOWN agave Adverse Reaction (Uncoded 03/21/25 11:28) Unknown HPI HPI OV-Left hip pain after a fall, MRI review: Details: Coby is a 74 year old female who presents today for a new problem visit with complaints of Left Hip pain. Patient reports that she fell out of bed on January 12 and had increased pain in the left hip. She had an XR which showed no fractures, and had an MRI done. She currently reports that she has been feeling better. She describes having a painless limp for years. Currently she has no pain. She uses a cane but mostly because of ongoing chemotherapy for multiple myeloma she has some balance issues. [facility] Medical History Hypertension GERD (gastroesophageal reflux disease) Hyperlipidemia Generalized anxiety disorder Surgical History History of colonoscopy History of right knee surgery History of removal of ovarian cyst History of appendectomy Family History Father No problems noted. Mother No problems noted. Brother No problems noted. Brother No problems noted. Other Mental health disorder Substance use disorder Social History Housing: House Alcohol intake: current Alcohol intake frequency: does not drink Alcohol type: wine Patient Tobacco Use Status: Never used Tobacco e-Cigarette/Vaping Use: Never Used Second Hand Smoke Exposure: No service: No Current occupational status: retired Cognitive needs: No Hearing needs: No Vision needs: No Physical Exam Vital Signs: BMI result Body Mass Index 27.8 Extrem Other: Coby is a pleasant woman in no acute distress. She has a painless Trendelenburg gait on the left. No tenderness to palpation no pain with hip range of motion. Results Reviewed Results Reviewed: I personally reviewed the MR images. IMPRESSION: There is a delaminated tear of the distal to 3 cm of gluteus medius tendon. Gluteus minimus is torn and retracted. There is moderate to severe fatty atrophy of the left gluteal muscles indicating the these are likely chronic tears. However, there could be acute on chronic. There is a grade 1 myofascial strain involving medial aspect of the iliopsoas muscle at level of the anterior-inferior iliac spine. There is grade 1-2 strain of anterior medial gluteus minimus muscle in the same region. 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 No treatment warranted as she has no pain and a painless limp and there is no surgery that would be helpful for her at this time. She is trying to stay active and doing yoga. She may continue to do this. She she expressed understanding and we will proceed forward accordingly. She can follow up as needed. Coding Level of Care Code New Pt Level 3 (84606) Diagnoses Tear of gluteus medius tendon S76.019A
--- OUTSIDE RECORDS SUMMARY | 2025-03-21 12:05 | XMS_ITS | Clinical Summary ---
Author Organization [facility] Address [address] [place] [id number] Phone Care Team Providers Care Patient Experience Coordinator Name Role Phone Juan Lopes MD Primary Care Provid er Brooks Dickson MD Unavailable Allergies Active Allergy Reactions Criticality Noted Date Comments Flurazepam 10/08/2024 Jojoba Oil (Bulk) Itching,Rash Low 10/08/2024 Lisinopril Other (See Comments) 10/08/2024 Tetracycline Hcl Shortness Of Breath,Swelling High 0 10/08/2024 Medications hydroCHLOROthiaz roslyn 25 MG tablet Take 25 mg by mouth daily. 09/21/2024 Active metoprolol tartrate (LOPRESSOR) 50 MG tablet Take 50 mg by mouth 2 (two) times a day. 09/14/2024 Active omeprazole (PRILOSEC) 20 MG capsule Take 20 mg by mouth daily. 09/21/2024 Active sertraline (ZOLOFT) 100 MG tablet Take 100 mg by mouth daily. 07/16/2024 Active valACYclovir (VALTREX) 500 MG tablet Take 500 mg by mouth daily. 08/10/2024 Active rosuvastatin (CRESTOR) 10 MG tablet Take 10 mg by mouth daily. Active aspirin 81 MG EC tablet Take 81 mg by mouth daily. Active Active Problems Problem Noted Date Diagnosed Date Multiple myeloma 10/09/2024 Social History Tobacco Use Types Packs/Day Years Used Date Smoking Tobacco: Never Assessed Education Answer Date Recorded Are you interested in more education? Not on ariane e 09/28/2024 Are you concerned about learning? Not on file 09/28/2024 No 09/28/2024 No 09/28/2024 Digital Access Answer Date Recorded No 09/28/2024 No 09/28/2024 Reliable internet access at home? Not on file 09/28/2024 Device with a working camera? Not on file Comments Unknown Sex and Gender Information Value Date Recorded Sex Assigned at Female 09/24/2024 10:17 AM EST Legal Sex Female 10:14 AM EST Gender Identity Female 09/24/2024 10:17 AM EST Sexual Orientation Straight 09/24/2024 10 :17 AM EST Last Filed Vital Signs Vital Sign Reading Time Taken Comments Blood Pressure 160/85 10/08/2024 1:[address] Dickson was notified. Pulse 66 10/08/2024 1:05 PM EST Temperature 35.8 C (96.5 F) 10/08/2024 1:05 PM EST Respiratory Rate 18 10/08/2024 1:05 PM EST Oxygen Saturation 99% 10/08/2024 1:0 5 PM EST Inhaled Oxygen Concentration - - Weight 83.4 kg (183 lb 14.4 oz) 10/08/2024 1:05 PM EST Height - - Body Mass Index - - Plan of Treatment Health Maintenance Due Date Last Done Comments LIPID PANEL 1951 DEPRESSION SCREENING 1963 SMOKING Hx and SMOKELESS TOBACCO SCREENING 1964 ZOSTER VACCINES (1 of 2) 1970 MAMMOGRAM 1991 COLOGUARD 1996 COLONOSCOPY 1996 COLORECTAL CANCER SCREENING 1996 FIT TEST 1996 FOBT 1996 SIGMOIDOSCOPY 1996 VIRTUAL COLONOSCOPY 1996 OSTEOPOROSIS SCREENING INITIAL (ONE-TIME) 2016 PNEUMOCOCCAL VACCINES (50+ years) (2 of 2 - PCV) 01/17/2020 01/16/2019 COVID-19 VACCINE ( season) 2024 06/06/2024, 05/02/2022, 12/04/2021, Additional history exists POTASSIUM LEVEL 10/08/2025 10/08/2024 Adult Td,Tdap Booster 09/21/2031 09/21/2021 RSV VACCINE Completed 06/06/2024 HEPATITIS C SCREENING Completed 10/08/2024 HEPATITIS A VACCINES Aged Out No long er eligible based on patient's age to complete this topic HIB VACCINES Aged Out No longer eligi ble based on patient's age to complete this topic MENINGOCOCCAL VACCINES (ACWY) Aged Out No longer eligible based on patient's age to complete this topic MENINGOCOCCAL VACCINES (B) Aged Out N o longer eligible based on patient's age to complete this topic Medical Devices Not on file Procedures Procedure Name Priority Date/Time Associated Diagnosis Comments HEPATITIS C ANTIBODY, QUALITATIVE Routine 10/08/2024 2:10 PM EST Multiple myeloma, remission status unspecified COMPREHENSIVE METABOLIC PANEL Routine 10/08/2024 2:10 PM EST Multiple myeloma, remission status unspecified from Last 3 Months or Most Recently Relevant to Health Maintenance Results * (ABNORMAL) Comprehensive metabolic panel (10/08/2024 2:10 PM EST) SODIUM 135 135 - 145 mmol/L [facility] POTASSIUM 3.8 3.4 - 5.0 mmol/L [facility] CHLORIDE 100 98 - 108 mmol/L [facility] CO2 27 23 - 32 mmol/L [facility] BUN 12 8 - 25 mg/dL [facility] CREATININE 0.48(L) 0.50 - 1.00 mg/dL [facility] GLUCOSE 90 70 - 110 mg/dL [facility] ALBUMIN 4.5 3.3 - 5.0 g/dL [facility] TOTAL PROTEIN 8.8(H) 6.0 - 8.3 g/dL [facility] CALCIUM 9.9 8.5 - 10.5 mg/dL [facility] ALKALINE PHOSPHATASE 76 30 - 100 U/L [facility] TOTAL BILIRUBIN 0.7 0.0 - 1.0 mg/dL [facility] AST 28 9 - 32 U/L [facility] ALT 13 7 - 33 U/L [facility] GLOBULIN 4.3(H) 1.9 - 4.1 g/dL [facility] EGFR 100 >59 mL/min/1. 73m2 [facility] Comment:Estimated glomerular filtration rate calculated using the CKD-EPI refit equation. ANION GAP 8 3 - 17 mmol/L [facility] 10/08/2024 2:10 PM EST 10/08/2024 2:27 PM EST Brooks Dickson MD LAB BLOOD ORDERABLES Final Resul t Performing Organization Address [facility] Co de Phone Number [address] [phone] * Hepatitis C antibody, qualitative (10/08/2024 2:10 PM EST) HCV ANTIBODY Negative Negative [facility] Comment:Antibodies to HCV no t detected. Does not exclude the possibility of exposure to HCV. 10/08/2024 2:10 PM EST 10/08/2024 2:27 PM EST Result [facility] Brooks Dickson MD LAB BLOOD ORDERABLES Final Resul t Performing Organization Address [facility] Co de Phone Number [address] [address] from Last 3 Months or Most Recently Relevant to Health Maintenance Insurance MEDICARE PART A & [place] [id number] [facility] MEDEX SUPPLEMENT MEDICARE PART A & B [employer] MEDEX SUPPLEMENT MEDICARE PART A & B [employer] MEDEX SUPPLEMENT MEDICARE PART A & B [employer] MEDEX SUPPLEMENT MEDICARE PART A & B [employer] MEDEX SUPPLEMENT MEDICARE PART A & B [employer] MEDEX SUPPLEMENT Care Teams Patient Experience Coordinator Relationship Specialty Start Date End Date Juan Lopes MD [address] [place] [phone] PCP - General Internal Medicine 09/24/24 Brooks Dickson MD [address] [place] [phone] [email or web address] Consulting Provider Medical Oncology 10/08/24 Additional Source Comments The information contained in this document represents components of the legal health record. It is not the complete legal health record.[facility]
== END 2025-03-21 12:14 | disposition home or self-care (01) ==
LOC: HO.HOS 11:24
PROVIDERS: PCP Internal Medicine; Visit Provider Orthopaedic Surgery
DX: S76.019A Strain of muscle, fascia and tendon of unspecified hip, initial encounter (principal)
CPT/HCPCS: 99203

== ENCOUNTER → 2025-03-21 11:23 | Outpatient (BNVA) | payer MEDICARE, SELFPAY | PROVIDERS: PCP Internal Medicine; Visit Provider Orthopaedic Surgery | DX: S76.019A Strain of muscle, fascia and tendon of unspecified hip, initial encounter (principal) | CPT/HCPCS: 99202 ==

== ENCOUNTER 2025-05-01 13:24 | Outpatient (AMB) | payer MEDICARE, SELFPAY ==
[2025-05-01 13:31] VITALS: BP 118/58; PULSE 53; O2SAT 98; BMI 26.7
--- NOTE | 2025-05-01 13:31 | A.OFFVIS_ITS ---
Intake Vital Signs 05/01/25 13:31 Height 5 ft 5 in Weight 160 lb 6 oz BMI 26.7 BP 118/58 L Blood Pressure Location Lt brachial Position Sitting Pulse 53 Pulse Source Pulse Oximeter Pulse Oximetry (%) 98 Intake Visit Reasons: AWV Iron Installer Required: No Accompanied by: Self / Same As Patient Allergies lisinopril (LISINOPRIL) Allergy (Severe, Verified 05/01/25 13:47) TONGUE NUMBNESS, ITCHY, Numb tongue, cough, oral numbness codeine (Codeine) Allergy (Unknown, Verified 05/01/25 13:47) SWELLING, unknown flurazepam (From Dalmane) Allergy (Unknown, Verified 05/01/25 13:47) SWELLING tetracycline (Tetracycline) Allergy (Unknown, Verified 05/01/25 13:47) SWELLING, facial edema, facial swelling, neck swelling CAT GUT SUTURES' Allergy (Unknown, Uncoded 05/01/25 13:47) UNKNOWN agave Adverse Reaction (Uncoded 05/01/25 13:47) Unknown Medication List - Last Reviewed 05/01/25 by Hayden Villagran MA aspirin 81 mg PO BEDTIME dexamethasone 20 mg (5 x 4 mg) PO DAILY diphenoxylate-atropine 2.5-0.025 mg (Lomotil) 1 tab PO DAILY docusate sodium (Colace) 100 mg PO DAILY hydrochlorothiazide 25 mg PO DAILY lenalidomide (Revlimid) 15 mg PO DAILY lenalidomide 15 mg PO DAILY lenalidomide (Revlimid) 15 mg PO DAILY levofloxacin 500 mg PO Q24H Magic Mouthwash Diphen/Lido/Antacid 1:1:1 10 mL PO QID metoprolol tartrate 50 mg PO BID omeprazole 20 mg PO DAILY@0630 ondansetron 8 mg PO Q8H oxycodone 5 mg PO Q8H PRN oxycodone 5 mg PO Q6H PRN potassium chloride ER 40 mEq (2 x 20 mEq) PO DAILY prochlorperazine maleate (Compazine) 10 mg PO Q8H PRN rosuvastatin 10 mg PO BEDTIME sennosides (senna) 8.6 mg PO SUTUTHSA sertraline 100 mg PO DAILY sulfamethoxazole-trimethoprim 800-160 mg (Bactrim DS) 1 tab PO QAM turmeric 400 mg PO DAILY valacyclovir 500 mg PO DAILY valacyclovir 500 mg PO DAILY vitamin B complex 1 tab PO DAILY HPI AWV HPI Details 74-year-old female past medical history of generalized anxiety disorder, GERD, hypertension, hyperlipidemia, osteopenia last seen 11/2024 coming in for AWV. Undergoing chemotherapy for eight months for MM, experiencing oral mucositis and diarrhea as side effects. As a side effect of the chemo patient was experiencing sores in the mouth making eating difficult. She does mentioned occasional depression and anxiety which is well managed with the sertraline at this time. Her hip pain as a result of the fall additionally required cane use, now improved. She was evaluated by Dr. Enamorado advised to follow up as needed. She does use to follow with her specialists in [place] as well as Dr. Colmenares in his due to see the specialist 06/10/2025 Mammogram: 11/2024 Eye exam: yearly [place] Colonoscopy: 2017 and repeat in 10 years Vaccines: UTD and waiting for Shingles vaccine - due for PCV PFSH Medical History Hypertension GERD (gastroesophageal reflux disease) Hyperlipidemia Generalized anxiety disorder Surgical History History of colonoscopy History of right knee surgery History of removal of ovarian cyst History of appendectomy Family History Father No problems noted. Mother No problems noted. Brother No problems noted. Brother No problems noted. Other Mental health disorder Substance use disorder Social History Housing: House Alcohol intake: current Alcohol intake frequency: does not drink Alcohol type: wine Patient Tobacco Use Status: Never used Tobacco e-Cigarette/Vaping Use: Never Used Second Hand Smoke Exposure: No service: No Current occupational status: retired Cognitive needs: No Hearing needs: No Vision needs: No Questionnaire Medicare Wellness Checkup What is your age?: 80 or older What gender do you identify with?: female During the past 4 weeks, how much have you been bothered by emotional problems such as feeling anxious, depressed, irritable, sad or downhearted, and blue?: slightly During the past 4 weeks, has your physical & emotional health limited your social activities with family, friends, neighbors, or groups?: not at all During the past 4 weeks, how much bodily pain have you generally had?: mild pain During the past 4 weeks, was someone available to help you if you needed & wanted help?: yes, as much as I wanted During the past 4 weeks, what was the hardest physical activity you could do for at least 2 minutes?: light Can you get to places out of walking distance without help? (For eg., can you travel alone on buses, taxis or drive your car?): Yes Can you go shopping for groceries or clothes without someone's help?: Yes Can you prepare your own meals?: Yes Can you do your housework without help?: Yes Because of any health problems, do you need the help of another person with your personal care needs such as eating, bathing, dressing or getting around the agustina se?: No Can you handle your own money without help?: Yes During the past 4 weeks, how would you rate your health in general?: good During the past 4 weeks how have things been going for you?: pretty well Are you having difficulties driving your car?: no Do you always fasten your seat belt when you are in a car?: yes, usually During past 4 weeks, have you been bothered by the following: never: Falling or dizzy when standing up, Sexual problems?, Teeth or denture problems? and Problems using the telephone?, sometimes: Tiredness or fatigue? and often: Trouble eating well? Have you fallen 2 or more times in the past year?: No Are you afraid of falling?: Yes Are you a smoker?: no During the past 4 weeks, how many drinks of wine, beer, or other alcoholic b everages did you have?: no alcohol at all Do you exercise for about 20 minutes 3 or more times a week?: yes, most of the time Have you been given information to help with the following?: yes: Hazards in your house that might hurt you? and yes: Keeping track of your medications? How often do you have trouble taking medicines the way you have been told to take them?: I always take medicine as prescribed How confident are you that you can control & manage most of your health problems?: very confident What is your race?: White Mini Mental State Exam (MMSE) Orientation What is the (year) (season) (date) (day) (month)?: year, season, date, day and month Where are we (state) (county) (town or city) (hospital) (floor)?: state, county, town or city, hospital/clinic and floor Score Score: 10 PHQ-9 Over the last 2 weeks, how often have you been bothered by any of the following problems? 1. Little interest or pleasure in doing things: several days 2. Feeling down, depressed, or hopeless: several days 3. Trouble falling or staying asleep, or sleeping too much: not at all 4. Feeling tired or having little energy: several days 5. Poor appetite or overeating: more than half the days 6. Feeling bad about yourself - or that you are a failure or have let yourself or your family down: not at all 7. Trouble concentrating on things, such as reading the newspaper or watching television: not at all 8. Moving or speaking so slowly that other people could have noticed. Or the opposite - being so fidgety or restless that you have been moving around a lot more than usual: not at all 9. Thoughts that you would be better off or of hurting yourself in some way: not at all Total score: 5 Depression Screening Interpretation: Positive Depression Screening Follow-up: Existing condition and In treatment Depression Screening Done: Yes 60966 - PHQ-9 Billing: Yes Source: Developed by Drs. Lenin Barger, Iram Kessler, Jluis Mills and colleagues, with an educational luis from [employer]. Review of Systems Const Denies body aches, Denies chills, Denies fever(s), Denies headache(s) and Denies poor appetite Eyes Reports no additional complaints ENT Reports dysphagia (chemo rxn ), Denies dizziness, Denies headache(s) and Denies odynophagia Card Denies chest pain, Denies syncope, Denies edema, Denies irregular heart rhythm, Denies lightheadedness and Denies dyspnea Resp Denies cough and Denies dyspnea GI Denies abdominal pain, Denies constipation, Reports dysphagia (chemo rxn ), Denies diarrhea, Denies nausea, Denies odynophagia and Denies vomiting Reports no additional complaints Musc Reports no additional complaints and Denies abnormal gait Skin/Breast Reports system reviewed and no additional complaints, except as documented Neuro Denies abnormal gait, Denies dizziness, Denies syncope and Denies headache(s) Psych Reports no additional complaints Physical Exam Vital Signs: Last Vital Signs Pulse 53 05/01/25 13:31 BP 118/58 L 05/01/25 13:31 Pulse Ox 98 05/01/25 13:31 BMI result Body Mass Index 26.7 Const General: cooperative, healthy appearing, comfortable and no acute distress Orientation/consciousness: patient oriented x3 HEENT Head: Yes normocephalic Ears: hearing grossly normal bilaterally General nose exam: Normal external nose present Eyes General: appearance normal, both eyes and all related structures Conjunctivae: conjunctivae normal Neck Neck: Yes full ROM and Yes no lymphadenopathy Resp Effort & Inspection: normal respiratory effort Auscultation: clear to auscultation bilaterally, no crackles, no rales, no rhonchi and no wheezes Cardio Rate: regular rate Rhythm: regular rhythm Skin General skin exam: no rashes or lesions noted Neuro General: patient oriented x3 Gait exam (Neuro): Normal gait present Extrem General: Yes normal to inspection, Yes full ROM and No edema Psych Affect: normal affect Attitude: cooperative Insight: Good insight present (Psych) Judgement: Good judgement present (Psych) Assessment & Plan Assessment & Plan (1) Medicare annual wellness visit, subsequent: Code(s): Z00.00 - Encounter for general adult medical examination without abnormal findings Plan: Patient is up to date on all recommended routine screenings and vaccinations for her age. Blood work is up to date and ordered for repeat blood work. Healthy diet and regular exercise is encouraged. [place] of care was reviewed with patient patient was provided with a written screening schedule. Healthcare proxy/ MOLST forms were reviewed with patient patient advised to bring completed forms to office to be scanned to chart. She has the forms from last visit and agrees to bring them in completed (2) Generalized anxiety disorder: Code(s): F41.1 - Generalized anxiety disorder Plan: Patient feels the anxiety and depression is well managed with sertraline 100 mg at this time. (3) Hypertension: Code(s): I10 - Essential (primary) hypertension Plan: Continue on current blood pressure medication. Avoid salt intake and encourage healthy diet and regular exercise. (4) Hyperlipidemia: Code(s): E78.5 - Hyperlipidemia, unspecified Plan: Avoid foods that are high in cholesterol such as red meat, fried foods, eggs and baked goods. Triglyceride goal of less than 150 and LDL goal of less than 130. Continue on Rosuvastatin (5) Osteopenia: Code(s): M85.80 - Other specified disorders of bone density and structure, unspecified site Plan: Ordered for repeat DEXA scan to be completed along with mammogram. (6) GERD (gastroesophageal reflux disease): Code(s): K21.9 - Gastro-esophageal reflux disease without esophagitis Plan: Avoid trigger foods such as citrus, tomato products, soda, caffeine, spicy foods and other foods that may be irritating to your stomach. Avoid laying flat 3-4 hours after eating and elevate the head of the bed 30 degrees to prevent acid from moving into the esophagus. (7) Multiple myeloma: Code(s): C90.00 - Multiple myeloma not having achieved remission Plan: Continue to follow with Hematology/Oncology. Planned to have chemotherapy for the next 6 months. She was seen by multiple myeloma specialists in [place] and discussed possible stem cell therapy but declined as the provider recommended against this. Plan This note was constructed using voice recognition software. While every effort has been made to ensure accuracy and strategic planning director, still areas may have been included sometimes these areas may affect the content or meeting of the given symptoms. Total time spent caring for the patient today was 30 minutes. This includes time spent before the visit reviewing the chart, time spent during the visit, and time spent after the visit and documentation. Patient was informed and verbally consented to the use of an ambient scribe for clinic note documentation during this visit. Orders: Orders Lipid Panel Today E78.00 - Pure hypercholesterolemia, unspecified Vitamin D 25-OH Total Today Z13.21 - Encounter for screening for nutritional disorder XR DEXA axial skeleton Today Z78.0 - Asymptomatic menopausal state Vitamin B12 and Folate Today Z13.21 - Encounter for screening for nutritional disorder TSH reflex Free T4 Today Z13.29 - Encounter for screening for other suspected endocrine disorder Quality Reporting (2019) Depression/Bipolar (159/160/161/177) PHQ-9: Total score: 5 Coding Level of Care Code Medicare Subsequent (G0439) Diagnoses Medicare annual wellness visit, subsequent Z00.00 Generalized anxiety disorder F41.1 Hypertension I10 Hyperlipidemia E78.5 Osteopenia M85.80 GERD (gastroesophageal reflux disease) K21.9 Multiple myeloma C90.00 CPT Codes Advance Care Planning - Time spent: 1-15 minutes, not on file ([id number]) Additional Codes PHQ-9 - 93113 - PHQ-9 Billing: Yes ([id number]) Advance Care Planning Advance Care Planning discussion: Completed/Scanned Date of discussion: 05/01/25 Who was present: myself, patient Forms completed: Health Care Proxy and MOLST Time spent: 1-15 minutes, not on file Actual minutes spent: 5
--- OUTSIDE RECORDS SUMMARY | 2025-05-01 17:16 | XMS_ITS | Clinical Summary ---
Author Organization [facility] Address [address] [place] [id number] Phone Care Team Providers Care Director Business Systems Name Role Phone Juan Lopes MD Primary [...] Mass Index - - Plan of Treatment Upcoming Encounters Date Type Department Care Team (Late st Contact Info) Description 06/10/2025 12:30 PM EDT Office Visit [facility] [address] [facility], 9th Floor, [address] [place] [id number] Brooks Dickson MD [address] [place] [address] [email or web address] Maintenance Due Date Last Done Comments LIPID PANEL 1951 DEPRESSION SCREENING 1963 SMOKING Hx and SMOKELESS TOBACCO SCREENING 1964 ZOSTER VACCINES (1 of 2) 1970 MAMMOGRAM 1991 COLOGUARD 1996 COLONOSCOPY 1996 COLORECTAL CANCER SCREENING 1996 FIT TEST 1996 FOBT 1996 SIGMOIDOSCOPY 1996 VIRTUAL COLONOSCOPY 1996 OSTEOPOROSIS SCREENING INITIAL (ONE-TIME) 2016 PNEUMOCOCCAL VACCINES (50+ years) (2 of 2 - PCV) 01/17/2020 01/16/2019 INFLUENZA VACCINE (#1) 2025 , 08/18/2023, 05/02/2022, Additional history exists COVID-19 VACCINE ( season) 2025 06/06/2024, 05/02/2022, 12/04/2021, Additional history exists POTASSIUM [...] EST) SODIUM 135 135 - 145 mmol/L [facility] POTASSIUM 3.8 3.4 - 5.0 mmol/L [facility] CHLORIDE 100 98 - 108 mmol/L [facility] CO2 27 23 - 32 mmol/L [facility] BUN 12 8 - 25 mg/dL [facility] CREATININE 0.48(L) 0.50 - 1.00 mg/dL [facility] GLUCOSE 90 70 - 110 mg/dL [facility] ALBUMIN 4.5 3.3 - 5.0 g/dL [facility] TOTAL PROTEIN 8.8(H) 6.0 - 8.3 g/dL [facility] CALCIUM 9.9 8.5 - 10.5 mg/dL [facility] ALKALINE PHOSPHATASE 76 30 - 100 U/L [facility] TOTAL BILIRUBIN 0.7 0.0 - 1.0 mg/dL [facility] AST 28 9 - 32 U/L [facility] ALT 13 7 - 33 U/L [facility] GLOBULIN 4.3(H) 1.9 - 4.1 g/dL [facility] EGFR 100 >59 mL/min/1. 73m2 [facility] Comment:Estimated glomerular filtration rate calculated using the CKD-EPI refit equation. ANION GAP 8 3 - 17 mmol/L [facility] 10/08/2024 2:10 PM EST 10/08/2024 2:27 PM EST Brooks Dickson MD LAB BLOOD ORDERABLES Final Resul t Performing Organization Address [facility] Co de Phone Number [address] [phone] * Hepatitis C antibody, qualitative (10/08/2024 2:10 PM EST) HCV ANTIBODY Negative Negative [facility] Comment:Antibodies to HCV no t detected. Does not exclude the possibility of exposure to HCV. 10/08/2024 2:10 PM EST 10/08/2024 2:27 PM EST Brooks Dickson MD LAB BLOOD ORDERABLES Final Resul t Performing Organization Address City/[facility] Co de Phone Number [address] [phone] from Last 3 Months or Most Recently Relevant to Health Maintenance Insurance MEDICARE PART A & B [employer] CROSS MEDEX SUPPLEMENT MEDICARE PART A & B [employer] SUPPLEMENT MEDICARE PART A & B [employer] SUPP[employer] MEDICARE PART A & B [employer] SU[employer] MEDICARE PART A & B [employer] SU[employer] MEDICARE PART A & B [employer] MED[employer] SUPPLEMENT Care Teams Director Business Systems Relationship Specialty Start Date End Date Juan Lopes MD [address] [place] [phone] PCP - General Internal Medicine 09/24/24 Brooks Dickson MD [address] [place] [address] [email or web address] Consulting Provider Medical Oncology 10/08/24 Additional Source Comments The information contained in this document represents components of the legal health record. It is not the complete legal health record.[facility]
== END 2025-05-01 14:26 | disposition home or self-care (01) ==
LOC: HO.HMCH 13:25
PROVIDERS: PCP Internal Medicine
DX: Z00.00 Encounter for general adult medical examination without abnormal findings (principal); C90.00 Multiple myeloma not having achieved remission; F41.1 Generalized anxiety disorder; I10 Essential (primary) hypertension; E78.5 Hyperlipidemia, unspecified; M85.80 Other specified disorders of bone density and structure, unspecified site; K21.9 Gastro-esophageal reflux disease without esophagitis

== ENCOUNTER → 2025-05-01 13:24 | Outpatient (BNVA) | payer MEDICARE, SELFPAY | PROVIDERS: PCP Internal Medicine | DX: Z00.00 Encounter for general adult medical examination without abnormal findings (principal); F41.1 Generalized anxiety disorder; K21.9 Gastro-esophageal reflux disease without esophagitis; I10 Essential (primary) hypertension; E78.5 Hyperlipidemia, unspecified; C90.00 Multiple myeloma not having achieved remission; T45.1X5A Adverse effect of antineoplastic and immunosuppressive drugs, initial encounter; K12.30 Oral mucositis (ulcerative), unspecified; R19.7 Diarrhea, unspecified; Z91.81 History of falling; Z78.0 Asymptomatic menopausal state | CPT/HCPCS: 96127 ==

== ENCOUNTER 2025-05-06 10:04 | Outpatient (REF) | payer MEDICARE, SELFPAY ==
[2025-05-06 11:23] LABS: Cholesterol 152 mg/dL (<200); HDL Cholesterol 59 mg/dL (>40); Triglycerides 77 mg/dL (<150)
[2025-05-06 11:48] LABS: Folate 13.0 ng/mL (> or = 4.0); Vitamin B12 593 pg/mL (200-900)
--- OUTSIDE RECORDS SUMMARY | 2025-05-06 12:22 | XMS_ITS | Clinical Summary ---
Author Organization [facility] Address [address] [place] [phone] Phone Care Team Providers Care Service Delivery Consultant Name Role Phone Juan Lopes MD Primary [...] Description 06/10/2025 12:30 PM EDT Office [place] [facility] [address] [facility], 9th Floor, [address] [place] [phone] Brooks Dickson MD [address] [place] [address] [email or web address] Maintenance Due Date Last Done [...] EST) SODIUM 135 135 - 145 mmol/L [facility] POTASSIUM 3.8 3.4 - 5.0 mmol/L [facility] CHLORIDE 100 98 - 108 mmol/L [facility] CO2 27 23 - 32 mmol/L [facility] BUN 12 8 - 25 mg/dL [facility] CREATININE 0.48(L) 0.50 - 1.00 mg/dL [facility] GLUCOSE 90 70 - 110 mg/dL [facility] ALBUMIN 4.5 3.3 - 5.0 g/dL [facility] TOTAL PROTEIN 8.8(H) 6.0 - 8.3 g/dL [facility] CALCIUM 9.9 8.5 - 10.5 mg/dL [facility] ALKALINE PHOSPHATASE 76 30 - 100 U/L [facility] TOTAL BILIRUBIN 0.7 0.0 - 1.0 mg/dL [facility] AST 28 9 - 32 U/L [facility] ALT 13 7 - 33 U/L [facility] GLOBULIN 4.3(H) 1.9 - 4.1 g/dL [facility] EGFR 100 >59 mL/min/1. 73m2 [facility] Comment:Estimated glomerular filtration rate calculated using the CKD-EPI refit equation. ANION GAP 8 3 - 17 mmol/L [facility] 10/08/2024 2:10 PM EST 10/08/2024 2:27 PM EST Brooks Dickson MD LAB BLOOD ORDERABLES Final Resul t Performing Organization Address [facility] Co de Phone Number [address] [address] * Hepatitis C antibody, qualitative (10/08/2024 2:10 PM EST) HCV ANTIBODY Negative Negative [facility] Comment:Antibodies to HCV no t detected. Does not exclude the possibility of exposure to HCV. 10/08/2024 2:10 PM EST 10/08/2024 2:27 PM EST Brooks Dickson MD LAB BLOOD ORDERABLES Final Resul t Performing Organization Address City/[facility] Co de Phone Number [address] [address] from Last 3 Months or Most Recently Relevant to Health Maintenance Insurance MEDICARE PART A & B [employer] MED[employer] SUPPLEMENT MEDICARE PART A & B [employer] MED[employer] SUPPLEMENT MEDICARE PART A & B [employer] MEDEX SUPPLEMENT MEDICARE PART A & B [employer] MEDEX SUPPLEMENT MEDICARE PART A & B [employer] MEDEX SUPPLEMENT MEDICARE PART A & B [employer] MEDEX SUPPLEMENT Care Teams Service Delivery Consultant Relationship Specialty Start Date End Date Juan Lopes MD [address] [place] [phone] PCP - General Internal Medicine 09/24/24 Brooks Dickson MD [address] [place] [address] [email or web address] Consulting Provider Medical Oncology 10/08/24 Additional Source Comments The information contained in this document represents components of the legal health record. It is not the complete legal health record.[facility]
== END 2025-05-06 10:05 | disposition home or self-care (01) ==
LOC: HO.LAB 10:04
DX: Z13.29 Encounter for screening for other suspected endocrine disorder (principal); Z13.21 Encounter for screening for nutritional disorder; E78.00 Pure hypercholesterolemia, unspecified
CPT/HCPCS: 36415; 80061; 82306; 82607; 82746; 84443

== ENCOUNTER 2025-06-03 14:19 | Outpatient (REF) | payer MEDICARE, SELFPAY ==
--- NOTE | ~2025-06-03 | MM_ITS ---
EXAMINATION: DXA BONE DENSITY AXIAL HISTORY: Z78.0 - Asymptomatic menopausal state TECHNIQUE: ROOOMERS Dual energy absorptiometry (DEXA) of the lumbar spine, total left hip, and femoral neck was performed. COMPARISON: Comparison is made with the prior examination dated 04/28/2023. FINDINGS: The bone mineral density of the lumbar spine is 1.352 g/cm2, corresponding to a T-score of 1.3, and a Z-score of 2.8. This is indicative of normal bone mineral density. This represents a BMD change of 2.7% compared to the prior exam. This is statistically significant. The bone mineral density of the left total hip is 0.778 g/cm2, corresponding to a T-score of -1.8, and a Z-score of -0.3. This is indicative of osteopenia. This represents a BMD change of -3.2% compared to the prior exam. This is not statistically significant. The bone mineral density of the left femoral neck is 0.753 g/cm2, corresponding to a T-score of -2.1, and a Z-score of -0.3. This is indicative of osteopenia. This represents a BMD change of 0.5% compared to the prior exam. FRACTURE RISK: The FRAX index suggests a ten year probability of major osteoporotic fracture of 30.4%, and of hip fracture 8.4%. MM/XR DEXA axial skeleton IMPRESSION: Based on bone mineral density, and according to World Health Organization (WHO) criteria, the diagnosis is consistent with osteopenia. Statistically, 68% of repeat scans fall within 1 SD (+/- 0.010 g/cm2 for AP spine L1-L4) and 1 SD (+/- 0.012 g/cm2 for femur total) FRAX is a trademark of the [employer] [facility] Metabolic Bone Disease, a World Health Organization (WHO) Collaborating Center. Electronically signed by: Lenin Lyn MD 06/03/2025 02:59 PM EDT
== END 2025-06-03 14:20 | disposition home or self-care (01) ==
LOC: HO.MAMMO 14:19
DX: Z13.820 Encounter for screening for osteoporosis (principal); Z78.0 Asymptomatic menopausal state
CPT/HCPCS: 77080

== ENCOUNTER → 2025-06-03 14:30 | Outpatient (BNV) | payer MEDICARE, SELFPAY | PROVIDERS: Visit Provider Radiology Diagnostic Radiology | DX: E28.39 Other primary ovarian failure (principal) | CPT/HCPCS: 77080 ==